=== PATIENT | male | born 1965 | race Caucasian/White ===

== ENCOUNTER 2016-09-09 22:43 | Emergency (ER) | payer OTHER ==
[~2016-09-09] VITALS: Ht 182.9 cm; Wt 109.8 kg
[~2016-09-09 22:43] MED LIST: ASPI81TA9 PO; ATEN25TA PO; ATOR10TA60 PO; DULO30CA2 PO; LOSA25TA4 PO; MELO-156 PO; NITR0.4T SL; ONDA4TAB10 PO; Oxycodone Hcl/Acetaminophen PO; PANT40TA3 PO; SERT100T PO; SIMV10TA3 PO; TIZA4TAB PO; prostate medication
[2016-09-09] MEDS ORDERED: ONDANSETRON PF 4 MG/2 ML VIAL. IV ONE (23:45)
[2016-09-09] MEDS ORDERED: CYCLOBENZAPRINE 10 MG TABLET. PO ONE (23:45)
[2016-09-09] MEDS ORDERED: KETOROLAC 15 MG/ML VIAL. IV ONE (23:45)
[2016-09-09] MEDS ORDERED: HYDROmorphone 2 MG/ML VIAL IV ONE (23:55)
--- NOTE | 2016-09-10 00:15 | RAD ---
PROCEDURE CT cervical spine without contrast. HISTORY Neck pain, no injury. TECHNIQUE Helical CT imaging of the cervical spine is performed without IV contrast. COMPARISON MR cervical spine without contrast, 06/01/2010. FINDINGS No acute fracture. The vertebral body height and alignment are maintained. The facet joints are intact. No significant disc space narrowing. There is minimal degenerative endplate spurring. No significant narrowing of the central canal is identified. No high-grade neural foraminal narrowing is identified. Lung apices minimally imaged but are clear. Visualized soft tissues of the neck unremarkable. IMPRESSION No acute fracture or subluxation of the cervical spine. Electronically signed by: Mariano Lou MD (September 10, 2016 00:14:13)
[2016-09-10] MEDS ORDERED: IBUP-1007 PO (01:56)
[2016-09-10] MEDS ORDERED: OXYC-323 PO (01:56)
[2016-09-10] MEDS ORDERED: CYCL10TA2 PO (01:56)
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
[2016-09-10 02:20] VITALS: BP 119/74
== END 2016-09-10 02:21 | disposition home or self-care (01) ==
LOC: ER 22:43
DX: M54.2 Cervicalgia (principal); E78.00 Pure hypercholesterolemia, unspecified; I10 Essential (primary) hypertension; I25.10 Atherosclerotic heart disease of native coronary artery without angina pectoris; Z88.0 Allergy status to penicillin
CPT/HCPCS: 72125; 96374; 96375; 99284; J1170; J1885; J2405; 99285-25

== ENCOUNTER → 2016-12-09 | Outpatient (CLI) | payer OTHER ==
[~2016-12-09] MED LIST changes: +ASPI-612 PO; -ASPI81TA9 PO; +CYCL10TA2 PO; +IBUP-1007 PO; -MELO-156 PO; +MELO7.5T29 PO; +OXYC-323 PO
--- NOTE | 2016-12-09 11:28 | KCIC ---
EXAM: Cervical spine MRI without contrast. HISTORY: Dizziness. Near-syncope. Pain. Upper extremity numbness. TECHNIQUE: Multiplanar, multisequence magnetic resonance imaging of the cervical spine was performed without contrast. COMPARISON: CT dated 09/09/2016 and cervical spine MRI dated 11/29/2010. FINDINGS: There is straightening of cervical lordosis. There is no significant listhesis. The vertebral bodies are normal in height and demonstrate normal marrow signal intensity. No spinal cord lesion is seen. The skull base and posterior fossa are unremarkable. At C2-C3, there is mild left facet arthropathy. There is no stenosis. At C3-C4, there is a minimal disc bulge. There is no stenosis. At C4-C5, there is a minimal disc bulge and endplate remodeling. There is minimal left foraminal stenosis. At C5-C6, there is a minimal disc bulge and endplate remodeling. There is no stenosis. At C6-C7, there is no stenosis. IMPRESSION: Minimal degenerative change within the cervical spine, similar compared to prior studies. Electronically signed by: Candida Vargas MD (12/09/2016 11:25 AM) [email or web address]
--- NOTE | 2016-12-09 11:51 | KCIC ---
EXAM: Brain MRI without contrast. HISTORY: Dizziness. Near-syncope. TECHNIQUE: Multiplanar, multisequence magnetic resonance imaging of the brain was performed without contrast. COMPARISON: CT angiogram dated 12/20/2010. FINDINGS: There is no restricted diffusion to suggest acute or subacute infarction. There is no susceptibility effect to suggest hemorrhage. There is no mass effect or midline shift. There is no hydrocephalus. No suspicious white matter lesion is seen. The orbits are unremarkable. There is some mild paranasal sinus because of thickening. The mastoid air cells are clear. There are normal flow voids within the cerebral vessels. IMPRESSION: No acute intracranial finding. Electronically signed by: Candida Vargas MD (12/09/2016 11:48 AM) [email or web address]
== END | disposition home or self-care (01) ==
LOC: KCIC MRI 10:28
PROVIDERS: ATTEND Physician Assistant Medical
DX: M54.12 Radiculopathy, cervical region (principal); M47.892 Other spondylosis, cervical region; R42 Dizziness and giddiness; R55 Syncope and collapse; R20.0 Anesthesia of skin
CPT/HCPCS: 70551; 72141

== ENCOUNTER → 2016-12-24 | Outpatient (CLI) | payer OTHER ==
[~2016-12-24] MED LIST changes: +BUPIVACAINE MPF 0.25% 10 ML VIAL. ONE; +DOCU-150 PO; +DOXA2TAB2 PO; +IOHEXOL 180 MG/ML 10 ML VIAL. ONE; +methylPREDNISolone ACETATE 80 MG/ML VIAL. ONE
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
== END | disposition home or self-care (01) ==
LOC: PNCL 07:36
PROVIDERS: ATTEND Anesthesiology
DX: M79.601 Pain in right arm (principal); M54.12 Radiculopathy, cervical region; M99.81 Other biomechanical lesions of cervical region; M62.838 Other muscle spasm; V29.9XXD Motorcycle rider (driver) (passenger) injured in unspecified traffic accident, subsequent encounter
CPT/HCPCS: 99214; J1040; J3490

== ENCOUNTER → 2017-01-09 | Outpatient (CLI) | payer OTHER ==
[~2017-01-09] MED LIST changes: -BUPIVACAINE MPF 0.25% 10 ML VIAL. ONE; +methylPREDNISolone ACETATE 40 MG/ML VIAL. ONE
--- NOTE | 2017-01-09 10:28 | PAIN ---
DATE OF SERVICE: 01/09/2017 DIAGNOSES: Cervical radiculopathy with cervical degenerative disk disease. HISTORY OF PRESENT ILLNESS: Mr. Taylor is a 51-year-old male who returns for followup, status post evaluation and preauthorization for cervical epidural steroid injection. The patient returns today with that authorization, wishing to proceed. The patient reports still pain in the base of the neck, shoulders, and more on the right than the left, with radiation into the right upper extremity. The patient reports also constant headaches every morning. Reports his pain is at 10 on a scale of 10 at its worst, 8 on an average, is 7 on a scale of 10 at its least, and it is a 7 today. The patient reports it is aching, dull, sharp, shooting pain, in the base of the neck and shoulders, as well as in the head, and headaches. Having difficulty sleeping. He cannot find a good position. He sleeps only about 4-6 hours if he can get into position. He has to reposition, get out of bed, but he is able to get back to sleep. The patient reports no new motor or sensory deficits or other complaints. PHYSICAL EXAMINATION: VITAL SIGNS: The patient's blood pressure is 134/95, pulse 83, respirations 20, temperature 98.2 degrees Fahrenheit, height 6 feet, weight is 234 pounds. GENERAL: The patient is awake, alert, oriented, appropriate, very pleasant demeanor. HEENT: Shows normocephalic, atraumatic. Extraocular movements are intact and symmetrical. Oral cavity shows mucous membranes moist and pink. Dentition is intact. NECK: Shows anterior throat is supple. Posterior cervical musculature shows symmetrical with the paraspinous musculature. With palpation shows some moderate tenderness, but only diffusely in the lower cervical distribution and the superior medial trapezius, somewhat more on the right than the left. CHEST: Shows normal with inspection. Breath sounds clear to auscultation bilaterally. HEART: Shows S1 and S2 clear. No murmurs auscultated. ABDOMEN: Soft, nontender, nondistended. No palpable organomegaly is noted. EXTREMITIES: Upper extremities show deep tendon reflexes 2+ in the biceps and triceps tendons. 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 Peripheral pulses are 2+ bilaterally. Options were discussed with the patient. The patient's old chart was reviewed, his current medication regimen updated, current review of systems updated today as well. We will proceed with a cervical epidural steroid injection using C-arm fluoroscopic guidance. Risks were again discussed, including but not limited to bleeding, infection, possibility of epidural hematoma and subsequent neurologic compromise, dural puncture, headaches, spinal cord and/or nerve damage, side effects of steroid medication and poor results regarding pain control. The patient understands and wishes to proceed. The patient will return to clinic in approximately 2 weeks for followup. Was counseled on return appointment and activity level and side effects to be aware of. DIAGNOSES: Cervical radiculopathy with cervical degenerative disk disease. PROCEDURE: Cervical epidural steroid injection, translaminar approach, C6-7 level using C-arm fluoroscopic guidance under sterile prep and drape using local anesthetic. MEDICATIONS INJECTED: Total 120 mg Depo-Medrol plus 5 mL preservative free normal saline and 2 mL of Isovue for contrast. CONDITION AT DISCHARGE: Stable. The patient tolerated procedure well, had no complications. WAYNE MARTIN MD DR: NI/rebecca JOB#: [id number] / [id number]
== END | disposition home or self-care (01) ==
LOC: PNCL 07:45
PROVIDERS: ATTEND Anesthesiology
DX: M50.123 Cervical disc disorder at C6-C7 level with radiculopathy (principal); E78.00 Pure hypercholesterolemia, unspecified; I10 Essential (primary) hypertension; I73.9 Peripheral vascular disease, unspecified; Z90.49 Acquired absence of other specified parts of digestive tract; Z87.01 Personal history of pneumonia (recurrent); Z87.39 Personal history of other diseases of the musculoskeletal system and connective tissue; Z88.0 Allergy status to penicillin; Z82.49 Family history of ischemic heart disease and other diseases of the circulatory system
CPT/HCPCS: 62321; J1030; J1040

== ENCOUNTER → 2017-01-21 | Outpatient (CLI) | payer OTHER ==
[~2017-01-21] MED LIST changes: -IOHEXOL 180 MG/ML 10 ML VIAL. ONE; -methylPREDNISolone ACETATE 40 MG/ML VIAL. ONE; -methylPREDNISolone ACETATE 80 MG/ML VIAL. ONE
--- NOTE | 2017-01-21 12:40 | PAIN ---
DATE OF SERVICE: 01/21/2017 DIAGNOSIS: Cervical radiculopathy with cervical degenerative disk disease. HISTORY OF PRESENT ILLNESS: The patient is a 51-year-old male who returns for followup status post cervical epidural steroid injection x 1 on 01/09/2017. The patient reports he did very well, about 80% improvement in his neck and upper extremities, right greater than left, still problematic, but doing much better. The patient reports he has been increasing his activity with greater ease and comfort, has had significant decrease in the pain until yesterday the pain began to return and came back fairly quickly in the base of the neck and shoulders as well as in the bilateral upper extremities with radiating shooting pain more in the right arm than the left, worse with activities, standing, walking, using his arms up over his head, repetitive motions with the upper extremities too. The patient reports it is still not near baseline, he rates it as 2 on a scale of 10 in all categories, but it is described as aching, dull, also sharp, shooting, alternating and stabbing pain in the upper extremities, again radiating to shoulders and the arms, into the forearms, and it is the hand worse on the right side than the left with some tingling sensations. The patient reports he has been sleeping better at night, however. It has been much more comfortable, has been very impressed with the amount of relief he has received. Again, the pain returning now as noted. The patient reports no new motor or sensory deficits, no new bowel or bladder incontinence, no other complaints. PHYSICAL EXAMINATION: VITAL SIGNS: Blood pressure 122/87, pulse 72, respirations 18, temperature 100.0. Height is 6 feet, weight is 235 pounds. GENERAL: The patient is awake, alert, oriented, appropriate, has very pleasant demeanor. HEENT: Normocephalic, atraumatic. Extraocular movements are intact, symmetrical. Oral cavity, mucous membranes are moist and pink. Dentition is intact. NECK: Supple without palpable lymphadenopathy noted. Swallow reflex is symmetrical. CHEST: Normal on inspection. Breath sounds are clear to auscultation bilaterally. HEART: Shows S1 and S2 clear. No murmurs auscultated. ABDOMEN: Soft, nontender, nondistended. BACK: Shows spine grossly in the midline. Cervical lordotic curvature is intact. Cervical paraspinous musculature is symmetrical on inspection with palpation, just with mild tenderness in the inferior aspect of the cervical paraspinous musculature as well as the superior medial trapezius and into the lateral trapezius, worse on the left than the right with palpitation, but symmetric without atrophy or hypertrophy, no trigger points, no radiation of pain. The patient has good rotation and motion of the cervical spine both laterally as well as extension and flexion with some minor pain with extension, but only in the base of the neck, more on the right side than the left, not with forward flexion. Right and left lateral rotation performed to greater than 45 degrees, close to 90 degrees. Right and left upper extremities show deep tendon reflexes 2+/4 in the biceps and triceps tendons. Motor examination is approximately 4 on a scale of 5 with right lead trainer strength and 5/5 on the left. Biceps and triceps flexion are 5/5 and equal bilaterally. Peripheral pulses are 2+ in radial distribution. No peripheral edema is noted. No clubbing, no cyanosis. Upper extremities are warm and dry to touch, equal in color and appearance. Shoulder shrug is strong and intact without loss of strength on resistance. Options were discussed with the patient and the patient's old chart was reviewed and his current medication list has been updated. Current review of systems updated today as well. We will preauthorize the patient for a second cervical epidural steroid injection as he did very well with the first one, with radicular pain now returning, again greater on the right than the left, but bilaterally and in the upper extremities. The patient will be given additional Medrol Dosepak with instructions on side effects to be aware of. In the meantime, we will wait for preauthorization and plan on second cervical epidural steroid injection once that is achieved. WAYNE MARTIN MD DR: NI/rebecca JOB#: [id number] / [id number]
== END | disposition home or self-care (01) ==
LOC: PNCL 08:41
PROVIDERS: ATTEND Anesthesiology
DX: M50.10 Cervical disc disorder with radiculopathy, unspecified cervical region (principal)
CPT/HCPCS: 99212

== ENCOUNTER → 2017-02-04 | Outpatient (CLI) | payer OTHER ==
[~2017-02-04] MED LIST changes: +IOHEXOL 180 MG/ML 10 ML VIAL. ONE; +methylPREDNISolone ACETATE 40 MG/ML VIAL. ONE; +methylPREDNISolone ACETATE 80 MG/ML VIAL. ONE
--- NOTE | 2017-02-04 09:39 | PAIN ---
DATE OF SERVICE: 02/04/2017 DIAGNOSES: Cervical radiculopathy with cervical degenerative disk disease. HISTORY OF PRESENT ILLNESS: The patient is a 51-year-old male who returns for followup status post cervical epidural steroid injection x 1 and returns after preauthorization for second injection. The patient did very well by 100% improvement for the first week and a half or so. The pain is returning in the base of the neck and into the bilateral shoulders, tingling and burning in both arms, rated 10 on a scale of 10 at its worse, 8 on an average and 7 at least. The patient reports aching, sharp, dull, shooting, constant, severe, stabbing. The patient reports he is doing very well, although the pain came back very abruptly after the injection about 12 or 13 days later. The patient reports no new motor or sensory deficits, no new changes. PHYSICAL EXAMINATION: VITAL SIGNS: Today, the patient's blood pressure is 129/87, pulse 88, respirations 16, temperature is 98.4 degrees Fahrenheit. Height is 6 feet 0 inches, weight is 236 pounds. GENERAL: The patient is awake, alert, oriented, appropriate, very pleasant demeanor. HEENT: Head shows normocephalic, atraumatic. Extraocular movements are intact and symmetrical. Oral cavity, mucous membranes are moist and pink. Dentition is intact. NECK: Shows anterior throat supple without palpable lymphadenopathy noted. Swallow reflex is symmetrical. CHEST: Shows normal on inspection. Breath sounds are clear to auscultation bilaterally. HEART: Shows S1 and S2 clear. ABDOMEN: Soft, nontender, nondistended. No palpable organomegaly. There is no rebound or guarding demonstrated. BACK: Shows spine grossly in the midline. Cervical lordotic curvature is slightly flattened with palpation, shows moderate tenderness in the inferior aspect of the cervical paraspinous musculature bilaterally without radiation into the superior medial and lateral trapezius as well. EXTREMITIES: Upper extremity showed deep tendon reflexes at 2+ in the biceps and triceps tendons. Motor exam is approximately 5/5 on the left and 4/5 on the right with territory sales executive strength. Peripheral pulses are 2+. No peripheral edema is noted. Options were discussed with the patient and the patient's old chart was reviewed as his current medication regimen updated. Current review of systems updated today as well. We will proceed with a second cervical epidural steroid injection today with fluoroscopic guidance. Risks were again discussed including, but not limited to bleeding, infection, possibility of epidural hematoma, subsequent neurologic compromise, dural puncture, headaches, spinal cord and/or nerve damage, side effects of steroid medication and poor results regarding pain control. The patient understands and wishes to proceed. The patient will return to clinic in approximately 2 weeks for followup. He was counseled on return appointment, activity level and side effects to be aware of. DIAGNOSIS: Cervical radiculopathy with cervical degenerative disk disease. PROCEDURE: Cervical epidural steroid injection in translaminar approach C6 level using fluoroscopic guidance, under sterile prep and drape using local anesthetic. MEDICATIONS INJECTED: Total 120 mg of Depo-Medrol, plus 5 mL preservative-free normal saline, 2 mL Isovue contrast. CONDITION ON DISCHARGE: Stable. The patient tolerated the procedure well, had no complications. WAYNE MARTIN MD DR: NI/rebecca JOB#: [id number] / [id number]
== END | disposition home or self-care (01) ==
LOC: PNCL 07:36
PROVIDERS: ATTEND Anesthesiology
DX: M50.123 Cervical disc disorder at C6-C7 level with radiculopathy (principal); E78.00 Pure hypercholesterolemia, unspecified; I10 Essential (primary) hypertension; Z90.49 Acquired absence of other specified parts of digestive tract; Z87.01 Personal history of pneumonia (recurrent); Z82.49 Family history of ischemic heart disease and other diseases of the circulatory system
CPT/HCPCS: 62321; J1030; J1040

== ENCOUNTER 2017-02-18 08:03 | Emergency (ER) | payer OTHER ==
[~2017-02-18] VITALS: Ht 182.9 cm; Wt 103.4 kg
[~2017-02-18 08:03] MED LIST changes: -IOHEXOL 180 MG/ML 10 ML VIAL. ONE; -methylPREDNISolone ACETATE 40 MG/ML VIAL. ONE; -methylPREDNISolone ACETATE 80 MG/ML VIAL. ONE
[2017-02-18] MEDS ORDERED: ONDANSETRON PF 4 MG/2 ML VIAL. IV ONE (08:45)
[2017-02-18] MEDS ORDERED: IV NORMAL SALINE 1000ML BAG 1,000 ML IV ONE (08:45)
[2017-02-18] MEDS ORDERED: HYDROmorphone 2 MG/ML VIAL IV ONE ×2 (08:45→09:45)
--- NOTE | 2017-02-18 08:56 | PHYS DOC ---
Past Medical History Past Medical History: CAD, Hypertension, Other Additional Past Medical Histor: high cholesterol, "liver mass", "stress" Past Surgical History: Other Additional Past Surgical Histo: hernia,r ankle,carple tunnel bilat, VARICOSE VEINS STRIPPING Alcohol Use: Occasionally Drug Use: None Adult General Chief Complaint Chief Complaint: ABDOMINAL PAIN HPI HPI Patient is a 51 year old male with history of CAD, hypertension, who presents today with moderate chronic left lower quadrant abdominal pain radiating into his left lower extremity, left lower back, and sometimes to the right abdomen. Patient states this pain has been going on since August 2016 when he had his inguinal hernia repair with a mesh. Patient denies any nausea vomiting. He states he has chronic diarrhea after gallbladder removal years ago. Patient denies any fever. He states he has followed up with his general surgeon that did his hernia repair multiple times and they did an ultrasound which was negative and the general surgeon recommended f/u with pain clinic. Patient states his pain got worse this morning when having a bowel movement. He also states he has seen his PCP for this pain who is trying him on other medications that are not narcotics. PCP Dr. Troncoso Review of Systems Review of Systems Constitutional: Denies fever or chills [] Eyes: Denies change in visual acuity, redness, or eye pain [] HENT: Denies nasal congestion or sore throat [] Respiratory: Denies cough or shortness of breath [] Cardiovascular: No additional information not addressed in HPI [] GI: Left lower quadrant abdominal pain radiating to the right lower quadrant, denies nausea, vomiting, bloody stools or diarrhea [] : Denies dysuria or hematuria [] Musculoskeletal: Denies back pain or joint pain [] Integument: Denies rash or skin lesions [] Neurologic: Denies headache, focal weakness or sensory changes [] Current Medications Current Medications Current Medications Medications (Trade) Dose Ordered Sig/Kaylee Start Time Stop Time Status Last Admin Dose Admin Hydromorphone HCl (Dilaudid) 1 mg 1X ONCE 02/18/17 09:45 02/18/17 09:46 DC 02/18/17 09:41 1 MG Info (Do NOT chart on this entry -- for MONITORING) 1 each PRN DAILY PRN 02/18/17 09:30 02/20/17 09:29 Iohexol (Omnipaque 300 Mg/ml) 75 ml 1X ONCE 02/18/17 09:30 02/18/17 09:31 DC 02/18/17 09:20 75 ML Ondansetron HCl (Zofran) 4 mg 1X ONCE 02/18/17 08:45 02/18/17 08:46 DC 02/18/17 08:58 4 MG Sodium Chloride 1,000 ml @ 1,000 mls/hr 1X ONCE 02/18/17 08:45 02/18/17 09:44 DC 02/18/17 08:58 1,000 MLS/HR Allergies Allergies Allergies Coded Allergies Type Severity Reaction Last Updated Verified Penicillins Allergy Intermediate lip swelling,rash 04/10/16 Yes Physical Exam Physical Exam Constitutional: Well developed, well nourished, no acute distress, non-toxic appearance. [] HENT: Normocephalic, atraumatic, bilateral external ears normal, oropharynx moist, no oral exudates, nose normal. [] Eyes: PERRLA, EOMI, conjunctiva normal, no discharge. [] Neck: Normal range of motion, no tenderness, supple, no stridor. [] Cardiovascular:Heart rate regular rhythm, no murmur [] Lungs & Thorax: Bilateral breath sounds clear to auscultation [] Abdomen: Old healed surgical incision noted on the left inguinal area as well as umbilicus. Bowel sounds normal, soft, moderate tenderness on palpation of the left lower quadrant, no right lower quadrant tenderness, no masses, no pulsatile masses. [] Skin: Warm, dry, no erythema, no rash. [] Back: No tenderness, no CVA tenderness. [] Extremities: No tenderness, no cyanosis, no clubbing, ROM intact, no edema. [] Neurologic: Alert and oriented X 3, normal motor function, normal sensory function, no focal deficits noted. [] Psychologic: Affect normal, judgement normal, mood normal. [] Current Patient Data Vital Signs Vital Signs Date Time Temp Pulse Resp B/P (MAP) Pulse Ox O2 Delivery O2 Flow Rate FiO2 02/18/17 09:41 18 98 Room Air 02/18/17 09:05 77 118/80 (93) 02/18/17 08:25 98.7 98.7 Lab Values Laboratory Tests Test 02/18/17 08:35 White Blood Count 13.6 x10^3/uL (4.0-11.0) H Red Blood Count 5.22 x10^6/uL (4.30-5.70) Hemoglobin 16.1 g/dL (13.0-17.5) Hematocrit 47.5 % (39.0-53.0) Mean Corpuscular Volume 91 fL (79-100) Mean Corpuscular Hemoglobin 31 pg (25-35) Mean Corpuscular Hemoglobin Concent 34 g/dL (31-37) Red Cell Distribution Width 13.4 % (11.5-14.5) Platelet Count 250 x10^3/uL (140-400) Neutrophils (%) (Auto) 80 % (31-73) H Lymphocytes (%) (Auto) 14 % (24-48) L Monocytes (%) (Auto) 5 % (0-9) Eosinophils (%) (Auto) 1 % (0-3) Basophils (%) (Auto) 1 % (0-3) Neutrophils # (Auto) 10.9 x10^3uL (1.8-7.7) H Lymphocytes # (Auto) 1.9 x10^3/uL (1.0-4.8) Monocytes # (Auto) 0.6 x10^3/uL (0.0-1.1) Eosinophils # (Auto) 0.1 x10^3/uL (0.0-0.7) Basophils # (Auto) 0.1 x10^3/uL (0.0-0.2) Sodium Level 138 mmol/L (136-145) Potassium Level 3.9 mmol/L (3.5-5.1) Chloride Level 102 mmol/L (98-107) Carbon Dioxide Level 28 mmol/L (21-32) Anion Gap 8 (6-14) Blood Urea Nitrogen 16 mg/dL (8-26) Creatinine 0.8 mg/dL (0.7-1.3) Estimated GFR (Cockcroft-Gault) 102.7 BUN/Creatinine Ratio 20 (6-20) Glucose Level 106 mg/dL (70-99) H Calcium Level 8.9 mg/dL (8.5-10.1) Total Bilirubin 0.6 mg/dL (0.2-1.0) Aspartate Amino Transferase (AST) 20 U/L (15-37) Alanine Aminotransferase (ALT) 43 U/L (16-63) Alkaline Phosphatase 129 U/L (46-116) H Total Protein 7.7 g/dL (6.4-8.2) Albumin 3.5 g/dL (3.4-5.0) Albumin/Globulin Ratio 0.8 (1.0-1.7) L Lipase 245 U/L (73-393) Laboratory Tests 02/18/17 08:35 Laboratory Tests 02/18/17 08:35 EKG EKG [] Radiology/Procedures Radiology/Procedures []PROCEDURE: CT ABD PELV W/ IV CONTRST ONLY Indication left lower quadrant pain. Axial images through the abdomen and pelvis were obtained. Approximately 75 cc of Omnipaque 300 was administered intravenously. No oral contrast was administered. Note is made of a previous examination 08/15/2014. The lung bases are clear. There is an unchanged low-density mass in the right lobe liver which is probably incidental. A definite significant finding in the liver is not seen. The spleen is at the upper limits of normal in size. Clips are seen in the gallbladder fossa. The pancreas appears unremarkable. There are no adrenal or renal masses. Acute finding in the abdomen is not seen. In the pelvis no focal mass or inflammatory process is seen. An acute finding is not seen. Pressure: No acute finding seen in the abdomen or pelvis DICTATED and SIGNED BY: ALBERT COFFEY MD DATE: 02/18/17 0933 CC: CARMEN THORNTON APRN; ANDREI VILLANUEVA PA-C ~ Course & Med Decision Making Course & Med Decision Making Pertinent Labs and Imaging studies reviewed. (See chart for details) This is a 51-year-old male patient presented to the ED today with left lower quadrant abdominal pain that has been going on since August 2016 after having inguinal hernia repair. Please see history of present illness. He has already followed up with the general surgeon who recommended a pain clinic. CBC CMP lipase with no acute findings. CT of the abdomen and pelvic was negative for any acute findings. Patient has been asking for Dilaudid very frequently in the ED. Informed patient his labs and CT were negative. Informed him he needs to follow-up with his own general surgeon. He states he does not want to see his general surgeon anymore. He states he'll follow up with Dr. Rubin. He was discharged in stable condition. Dragon Disclaimer Dragon Disclaimer This electronic medical record was generated, in whole or in part, using a voice recognition dictation system. Departure Departure Impression: Primary Impression: Abdominal pain Disposition: HOME, SELF-CARE Referrals: ANDREI VILLANUEVA PA-C (PCP) VIKTOR RUBIN MD follow up in one week Patient Instructions: Abdominal Pain Additional Instructions: You were seen for chronic left low quadrant abdominal pain. We recommend you follow-up with a general surgeon. You stated you will follow up with Dr. Rubin. Call his office today and set up a follow-up. You can also follow-up with your primary care doctor. 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
[2017-02-18 08:57] LABS: CALCIUM 8.9 mg/dL (8.5-10.1); CREATININE 0.8 mg/dL (0.7-1.3); GFR 102.7; POTASSIUM 3.9 mmol/L (3.5-5.1)
[2017-02-18 09:03] LABS: ALBUMIN 3.5 g/dL (3.4-5.0); ALBUMIN/GLOBULIN RATIO 0.8 (1.0-1.7); TOTAL BILIRUBIN 0.6 mg/dL (0.2-1.0); TOTAL PROTEIN 7.7 g/dL (6.4-8.2)
[2017-02-18 09:05] LABS: BASO # 0.1 x10^3/uL (0.0-0.2); BASO % 1 % (0-3); EOS % 1 % (0-3); HEMATOCRIT 47.5 % (39.0-53.0); HEMOGLOBIN 16.1 g/dL (13.0-17.5); LYMPH # 1.9 x10^3/uL (1.0-4.8); LYMPH % 14 % (24-48); MEAN CORPUSCULAR HEMOGLOBIN 31 pg (25-35); MEAN CORPUSCULAR HGB CONC 34 g/dL (31-37); MEAN CORPUSCULAR VOLUME 91 fL (79-100); MONO % 5 % (0-9); NEUT % 80 % (31-73); PLATELET COUNT 250 x10^3/uL (140-400); RED BLOOD COUNT 5.22 x10^6/uL (4.30-5.70); RED CELL DISTRIBUTION WIDTH 13.4 % (11.5-14.5); WHITE BLOOD COUNT 13.6 x10^3/uL (4.0-11.0)
[2017-02-18] MEDS ORDERED: CONTRAST GIVEN MC PRN (09:30)
[2017-02-18] MEDS ORDERED: IOHEXOL 300 MG/ML 75 ML VIAL IV ONE (09:30)
--- NOTE | 2017-02-18 09:51 | RAD ---
Indication left lower quadrant pain. Axial images through the abdomen and pelvis were obtained. Approximately 75 cc of Omnipaque 300 was administered intravenously. No oral contrast was administered. Note is made of a previous examination 08/15/2014. The lung bases are clear. There is an unchanged low-density mass in the right lobe liver which is probably incidental. A definite significant finding in the liver is not seen. The spleen is at the upper limits of normal in size. Clips are seen in the gallbladder fossa. The pancreas appears unremarkable. There are no adrenal or renal masses. Acute finding in the abdomen is not seen. In the pelvis no focal mass or inflammatory process is seen. An acute finding is not seen. Pressure: No acute finding seen in the abdomen or pelvis
[2017-02-18 10:35] VITALS: BP 115/69
== END 2017-02-18 11:05 | disposition home or self-care (01) ==
LOC: ER 08:03
DX: R10.32 Left lower quadrant pain (principal); M54.5 Low back pain; M79.605 Pain in left leg; I10 Essential (primary) hypertension; E78.00 Pure hypercholesterolemia, unspecified; I25.10 Atherosclerotic heart disease of native coronary artery without angina pectoris; Z88.0 Allergy status to penicillin
CPT/HCPCS: 36415; 74177; 80053; 83690; 85025; 96361; 96374; 96375; 96376; 99285; J1170; J2405; J7030; Q9967

== ENCOUNTER → 2017-03-03 | Day surgery (SDC) | payer OTHER ==
[~2017-03-03] MED LIST changes: +DICY20TA3 PO; +IV RINGERS,LACTATED 1000ML 1,000 ML IV SCH; +LIDOCAINE 2% PF Vial for OR 5 ML VIAL. ONE; +LOSA1TAB19 PO; +PANT40TA5 PO; +PROPOFOL 20 ML IV ONE; +PROPOFOL 60 ML IV ONE; +SUCR1TAB35 PO
[2017-03-03 16:01] VITALS: BP 107/80
--- NOTE | 2017-03-05 13:28 | PATHOLOGY ---
PATHOLOGY REPORT * * * * * * * * FINAL DIAGNOSIS: A. Esophageal biopsy, distal esophagus: - Segments of hyperplastic squamous esophageal mucosa and esophagogastric mucosa showing chronic inflammation, consistent with reflux esophagitis. B. Colon biopsy, sigmoid polyp: - Inflamed hyperplastic polyp showing focal active chronic inflammation. C. Colon biopsy, cecal polyp: - Tubular adenoma. COMMENT: Sections of the distal esophageal biopsy reveal segments of hyperplastic squamous esophageal mucosa and esophagogastric mucosa showing chronic inflammation. The findings are consistent with reflux esophagitis. There is no evidence of Suarez's change, dysplasia, or malignancy. Sections of the sigmoid colon biopsy reveal an inflamed hyperplastic polyp showing focal active chronic inflammation. There are no adenomatous changes or evidence of malignancy. Sections of the cecal biopsy reveal a diminutive tubular adenoma showing no high grade dysplasia or evidence of malignancy. (JPM:mml; 03/05/2017) REPORT ELECTRONICALLY SIGNED BY: Cisco Najera M.D. DATE/TIME: 03/05/2017 13:27 * * * * * * * * GROSS PATHOLOGY: A. Received in formalin labeled "Myron Taylor, distal esophagus BX's," are 3 segments of dumont soft tissue measuring 1.2 x 0.3 x 0.3 cm in aggregate dimensions and ranging from 0.4 to 0.6 cm in maximum dimension. The specimen is submitted entirely in cassette A1. B. Received in formalin labeled "Myron Taylor, sigmoid polyp," is a segment of dumont soft tissue measuring 0.4 cm in maximum dimension. The specimen is submitted entirely in cassette B1. C. Received in formalin labeled "Myron Taylor, cecal polyp," is a segment of dumont soft tissue measuring 0.3 cm in maximum dimension. The specimen is submitted entirely in cassette C1. (TSD; 03/04/2017) INITIAL CPT CODE(S): A; 54914 B; 23270 C; 52672 Professional services performed by [facility] at [facility] [address] [place] [id number] Technical services performed by [facility] at [address] [place] [address], [address], [place] [address]. SPECIMEN(S) RECEIVED: A.Distal esophagus biopsy B.Sigmoid polyp C.Cecal polyp CLINICAL HISTORY: Reflux, dysphagia, rectal bleeding PATIENT: MYRON TAYLOR /AGE: 6 1965 (Age: 51) PATIENT #: [id number] ALT CASE #: SPECIMEN COLLECTION DATE: 03/03/2017 SPECIMEN RECEIVED DATE: 03/04/2017 [facility] - [id number] [place] [address] - PHONE: [phone] * * * END OF REPORT * * *
== END | disposition home or self-care (01) ==
LOC: ENDOS 14:29
PROVIDERS: ATTEND Internal Medicine Gastroenterology
DX: D12.0 Benign neoplasm of cecum (principal); D12.5 Benign neoplasm of sigmoid colon; K29.50 Unspecified chronic gastritis without bleeding; K64.0 First degree hemorrhoids; K92.1 Melena; K21.0 Gastro-esophageal reflux disease with esophagitis; Z88.0 Allergy status to penicillin; I25.10 Atherosclerotic heart disease of native coronary artery without angina pectoris; I10 Essential (primary) hypertension; E78.00 Pure hypercholesterolemia, unspecified; I73.9 Peripheral vascular disease, unspecified; Z82.49 Family history of ischemic heart disease and other diseases of the circulatory system; Z87.01 Personal history of pneumonia (recurrent); Z90.49 Acquired absence of other specified parts of digestive tract; Z87.39 Personal history of other diseases of the musculoskeletal system and connective tissue
CPT/HCPCS: 43239; 45380; 88305; J2704; J2001

== ENCOUNTER 2017-03-16 09:08 | Emergency (ER) | payer OTHER ==
[~2017-03-16 09:08] MED LIST changes: -IV RINGERS,LACTATED 1000ML 1,000 ML IV SCH; -LIDOCAINE 2% PF Vial for OR 5 ML VIAL. ONE; -PROPOFOL 20 ML IV ONE; -PROPOFOL 60 ML IV ONE
[2017-03-16] MEDS: MORPHINE SULFATE 4 MG/ML DISP.SYRIN. IV ONE ×2 (09:30→09:43)
[2017-03-16] MEDS ORDERED: ONDANSETRON PF 4 MG/2 ML VIAL. IV ONE (09:30)
[2017-03-16 09:38] LABS: HEMATOCRIT 42.4 % (39.0-53.0); HEMOGLOBIN 14.5 g/dL (13.0-17.5); RED BLOOD COUNT 4.66 x10^6/uL (4.30-5.70); RED CELL DISTRIBUTION WIDTH 13.2 % (11.5-14.5); WHITE BLOOD COUNT 9.8 x10^3/uL (4.0-11.0)
[2017-03-16 09:45] LABS: CREATININE 0.9 mg/dL (0.7-1.3); GFR 89.7; POTASSIUM 3.8 mmol/L (3.5-5.1)
[2017-03-16 09:51] LABS: ALBUMIN 3.2 g/dL (3.4-5.0); ALBUMIN/GLOBULIN RATIO 0.8 (1.0-1.7); TOTAL BILIRUBIN 0.4 mg/dL (0.2-1.0); TOTAL PROTEIN 7.3 g/dL (6.4-8.2)
[2017-03-16] MEDS ORDERED: CONTRAST GIVEN MC PRN (10:00)
[2017-03-16] MEDS ORDERED: IOHEXOL 300 MG/ML 100ML VIAL. IV ONE (10:00)
--- NOTE | 2017-03-16 10:26 | PHYS DOC ---
Past Medical History Past Medical History: Hypertension Additional Past Medical Histor: high cholesterol, "liver mass", "stress" Past Surgical History: Other Additional Past Surgical Histo: recent colonoscopy, EGD Alcohol Use: Occasionally Drug Use: None Adult General Chief Complaint Chief Complaint: ABDOMINAL PAIN HPI HPI Patient is a 51 year old male with a history of chronic back and abdominal pain presents to the ED complaining of abdominal pain x 3 weeks. Seen on February 18 for similar symptoms. Describes pain as sharp. Rates pain as 9 out of 10. States he has a history of inguinal hernia repair in August 2016 with mesh placement. States he has been having pain ever since. States his general surgeon referred him to the pain clinic. Requested new general surgeon on last visit and given Dr. Luna. Patient states he has not followed up yet. Patient had a colonoscopy and EGD done on March [address] Harris. No acute findings at this time. States he is following up with Dr. Harris this coming Thursday. Denies nausea/vomiting, fever, chest pain, shortness of breath, dysuria, hematuria, weakness or dizziness. Review of Systems Review of Systems Constitutional: Denies fever or chills [] Eyes: Denies change in visual acuity, redness, or eye pain [] HENT: Denies nasal congestion or sore throat [] Respiratory: Denies cough or shortness of breath [] Cardiovascular: No additional information not addressed in HPI [] GI: Complains of abdominal pain. Denies nausea, vomiting, bloody stools or diarrhea [] : Denies dysuria or hematuria [] Musculoskeletal: Complains of back pain. Denies joint pain. [] Integument: Denies rash or skin lesions [] Neurologic: Denies headache, focal weakness or sensory changes [] Endocrine: Denies polyuria or polydipsia [] All other systems were reviewed and found to be within normal limits, except as documented in this note. Current Medications Current Medications Current Medications Medications (Trade) Dose Ordered Sig/Kaylee Start Time Stop Time Status Last Admin Dose Admin Famotidine (Pepcid Vial) 20 mg 1X ONCE 03/16/17 10:30 03/16/17 10:31 DC 03/16/17 10:35 20 MG Info (Do NOT chart on this entry -- for MONITORING) 1 each PRN DAILY PRN 03/16/17 10:00 03/16/17 12:44 DC Iohexol (Omnipaque 300 Mg/ml) 100 ml 1X ONCE 03/16/17 10:00 03/16/17 10:01 DC 03/16/17 10:00 75 ML Morphine Sulfate 4 mg 1X ONCE 03/16/17 10:30 03/16/17 10:31 DC 03/16/17 10:35 4 MG Ondansetron HCl (Zofran) 4 mg 1X ONCE 03/16/17 09:30 03/16/17 09:31 DC 03/16/17 09:42 4 MG Allergies Allergies Allergies Coded Allergies Type Severity Reaction Last Updated Verified Penicillins Allergy Severe lip swelling,rash 03/03/17 Yes Physical Exam Physical Exam Constitutional: Well developed, well nourished, no acute distress, non-toxic appearance. [] HENT: Normocephalic, atraumatic, bilateral external ears normal, oropharynx moist, no oral exudates, nose normal. [] Eyes: PERRLA, EOMI, conjunctiva normal, no discharge. [] Neck: Normal range of motion, no tenderness, supple, no stridor. [] Cardiovascular:Heart rate regular rhythm, no murmur [] Lungs & Thorax: Bilateral breath sounds clear to auscultation [] Abdomen: Bowel sounds normal, soft, MILD DIFFUSE LOWER ABDOMINAL TENDERNESS., no masses, no pulsatile masses. [] Skin: Warm, dry, no erythema, no rash. [] Back: No tenderness, no CVA tenderness. [] Extremities: No tenderness, no cyanosis, no clubbing, ROM intact, no edema. [] Neurologic: Alert and oriented X 3, normal motor function, normal sensory function, no focal deficits noted. [] Psychologic: Affect normal, judgement normal, mood normal. [] Current Patient Data Vital Signs Vital Signs Date Time Temp Pulse Resp B/P (MAP) Pulse Ox O2 Delivery O2 Flow Rate FiO2 03/16/17 12:41 62 18 116/80 (92) 97 03/16/17 11:52 Room Air 03/16/17 09:11 98.3 98.3 Lab Values Laboratory Tests Test 03/16/17 09:25 03/16/17 10:17 03/16/17 12:07 White Blood Count 9.8 x10^3/uL (4.0-11.0) Red Blood Count 4.66 x10^6/uL (4.30-5.70) Hemoglobin 14.5 g/dL (13.0-17.5) Hematocrit 42.4 % (39.0-53.0) Mean Corpuscular Volume 91 fL (79-100) Mean Corpuscular Hemoglobin 31 pg (25-35) Mean Corpuscular Hemoglobin Concent 34 g/dL (31-37) Red Cell Distribution Width 13.2 % (11.5-14.5) Platelet Count 254 x10^3/uL (140-400) Sodium Level 141 mmol/L (136-145) Potassium Level 3.8 mmol/L (3.5-5.1) Chloride Level 103 mmol/L (98-107) Carbon Dioxide Level 29 mmol/L (21-32) Anion Gap 9 (6-14) Blood Urea Nitrogen 16 mg/dL (8-26) Creatinine 0.9 mg/dL (0.7-1.3) Estimated GFR (Cockcroft-Gault) 89.7 BUN/Creatinine Ratio 18 (6-20) Glucose Level 108 mg/dL (70-99) H Calcium Level 9.0 mg/dL (8.5-10.1) Total Bilirubin 0.4 mg/dL (0.2-1.0) Aspartate Amino Transferase (AST) 27 U/L (15-37) Alanine Aminotransferase (ALT) 46 U/L (16-63) Alkaline Phosphatase 125 U/L (46-116) H Total Protein 7.3 g/dL (6.4-8.2) Albumin 3.2 g/dL (3.4-5.0) L Albumin/Globulin Ratio 0.8 (1.0-1.7) L Lipase 197 U/L (73-393) Stool Occult Blood Negative (NEG) Urine Collection Type Unknown Urine Color Yellow Urine Clarity Clear Urine pH 6.5 Urine Specific [place] >=1.030 Urine Protein Negative mg/dL (NEG-TRACE) Urine Glucose (UA) Negative mg/dL (NEG) Urine Ketones (Stick) Negative mg/dL (NEG) Urine Blood Negative (NEG) Urine Nitrite Negative (NEG) Urine Bilirubin Negative (NEG) Urine Urobilinogen Dipstick 1.0 mg/dL (0.2 mg/dL) Urine Leukocyte Esterase Negative (NEG) Urine RBC 0 /HPF (0-2) Urine WBC 0 /HPF (0-4) Urine Squamous Epithelial Cells Occ /LPF Urine Bacteria 0 /HPF (0-FEW) Urine Mucus Slight /LPF Laboratory Tests 03/16/17 09:25 Laboratory Tests 03/16/17 09:25 EKG EKG [] Radiology/Procedures Radiology/Procedures PROCEDURE: LUMBAR SPINE 2-3V Lumbar spine, 3 views, 03/16/2017: History: Back pain There is a transitional-type vertebra at the lumbosacral junction. No fracture is identified. There is only minimal marginal spurring. The intervertebral disc spaces are well-maintained. The paraspinous soft tissues are unremarkable. IMPRESSION: No acute lumbar spine abnormality is detected. []PROCEDURE: CT ABD PELV W/ IV CONTRST ONLY CT of the abdomen and pelvis with contrast, 03/16/2017: History: Right-sided pain Multidetector CT imaging was performed following an IV bolus injection of iodinated contrast material. No oral contrast material was administered for this exam. Comparison is made to a study from 02/18/2017. The gallbladder is surgically absent. There is an oval-shaped subcapsular lucency in the posterior aspect of the right lobe of the liver measuring just less than 2 cm in greatest diameter. It is unchanged since 02/18/2017. It was also evident on an older exam from 10/14/2011 and has shown no definite change in size. This suggests a benign etiology. No new hepatic abnormality is seen. The pancreas is unremarkable. The spleen is within normal limits in size. No renal or adrenal abnormality is detected. The abdominal aorta is of normal caliber. No abdominal or pelvic adenopathy is seen. Streaky opacities of the left groin level as well as a tiny fluid collection are unchanged and are presumably postsurgical. The bowel loops are not dilated. The appendix shows no abnormality. No free air or free fluid is evident in the abdomen or pelvis. IMPRESSION: No acute abdominal or pelvic abnormality is detected. Course & Med Decision Making Course & Med Decision Making Pertinent Labs and Imaging studies reviewed. (See chart for details) []Discussed case with patient's PCP, Dr. Troncoso (seen in office by his PA-Homero) . Agrees with evaluation and plan. Recommends patient can be discharged and follow-up in the office in 1-2 days. States he wants the patient to keep his appointment with Dr. Harris, GI, later this week. Patient well-appearing on reexamination. Discussed labs and imaging with patient. Vital stable, no acute distress. On re-examination, abdomen is soft nontender nondistended. No peritoneal signs. Tolerating by mouth. Patient states he feels better and is comfortable with follow-up plan. Discussed importance of follow-up and reasons to return to the ED. Patient understands and agrees with plan. Dragon Disclaimer Dragon Disclaimer This electronic medical record was generated, in whole or in part, using a voice recognition dictation system. Departure Departure Impression: Primary Impression: Abdominal pain Disposition: HOME, SELF-CARE Condition: STABLE Referrals: ANDREI VILLANUEVA PA-C (PCP) VIKTOR HARRIS MD Patient Instructions: Abdominal Pain GONZALEZ BAE Mar 16, 2017 10:26
[2017-03-16] MEDS ORDERED: FAMOTIDINE 20 MG/2 ML VIAL IVP ONE (10:30)
[2017-03-16] MEDS ORDERED: MORPHINE SULFATE 4 MG/ML DISP.SYRIN. IV ONE (10:30)
--- NOTE | 2017-03-16 10:38 | RAD ---
CT of the abdomen and pelvis with contrast, 03/16/2017: History: Right-sided pain Multidetector CT imaging was performed following an IV bolus injection of iodinated contrast material. No oral contrast material was administered for this exam. Comparison is made to a study from 02/18/2017. The gallbladder is surgically absent. There is an oval-shaped subcapsular lucency in the posterior aspect of the right lobe of the liver measuring just less than 2 cm in greatest diameter. It is unchanged since 02/18/2017. It was also evident on an older exam from 10/14/2011 and has shown no definite change in size. This suggests a benign etiology. No new hepatic abnormality is seen. The pancreas is unremarkable. The spleen is within normal limits in size. No renal or adrenal abnormality is detected. The abdominal aorta is of normal caliber. No abdominal or pelvic adenopathy is seen. Streaky opacities of the left groin level as well as a tiny fluid collection are unchanged and are presumably postsurgical. The bowel loops are not dilated. The appendix shows no abnormality. No free air or free fluid is evident in the abdomen or pelvis. IMPRESSION: No acute abdominal or pelvic abnormality is detected. PQRS Compliance Statement: One or more of the following individualized dose reduction techniques were utilized for this examination: 1. Automated exposure control 2. Adjustment of the mA and/or kV according to patient size 3. Use of iterative reconstruction technique
--- NOTE | 2017-03-16 10:39 | RAD ---
Lumbar spine, 3 views, 03/16/2017: History: Back pain There is a transitional-type vertebra at the lumbosacral junction. No fracture is identified. There is only minimal marginal spurring. The intervertebral disc spaces are well-maintained. The paraspinous soft tissues are unremarkable. IMPRESSION: No acute lumbar spine abnormality is detected.
[2017-03-16 11:03] LABS: NEG OBC FOB NEG; POS OBC FOB POS
[2017-03-16 12:16] LABS: BILIRUBIN,URINE NEGATIVE (NEG); GLUCOSE,URINE NEGATIVE (NEG); NITRITE,URINE NEGATIVE (NEG); PH,URINE 6.5; PROTEIN,URINE NEGATIVE (NEG-TRACE)
[2017-03-16 12:40] LABS: BACTERIA,URINE 0 /HPF (0-FEW); RBC,URINE 0 /HPF (0-2); SQUAMOUS EPITHELIAL CELL,UR OCC /LPF; WBC,URINE 0 /HPF (0-4)
[2017-03-16 12:41] VITALS: BP 116/80
[2017-03-20] MEDS ORDERED: HYDR-2762 PO (10:26)
[2017-03-20] MEDS ORDERED: OXYC-323 PO (10:26)
[2017-04-01] MEDS ORDERED: AMIT25TA PO (11:54)
[2017-04-08] MEDS ORDERED: LOSA1TAB25 PO (12:30)
[2017-04-08] MEDS ORDERED: COLE1TAB2 PO (12:30)
[2017-04-08] MEDS ORDERED: DICY20TA3 PO (12:30)
[2017-04-08] MEDS ORDERED: DOXA2TAB2 PO (12:30)
[2017-04-08] MEDS ORDERED: LOSA50TA6 PO (12:33)
[2017-04-08] MEDS ORDERED: ESOM40CA PO (12:59)
== END 2017-03-16 12:43 | disposition home or self-care (01) ==
LOC: ER 09:08
DX: R10.84 Generalized abdominal pain (principal); G89.29 Other chronic pain; M54.89 Other dorsalgia; I10 Essential (primary) hypertension; E78.00 Pure hypercholesterolemia, unspecified; Z88.0 Allergy status to penicillin
CPT/HCPCS: 36415; 72100; 74177; 80053; 81001; 82274; 83690; 85027; 96374; 96375; 96376; 99285; J2270; J2405; Q9967; S0028

== ENCOUNTER → 2017-03-20 | Outpatient (CLI) | payer OTHER ==
[2017-03-16 12:41] VITALS: BP 116/80
[~2017-03-20] MED LIST changes: +HYDR-2762 PO
--- NOTE | 2017-03-20 18:44 | PAIN ---
DATE OF SERVICE: 03/20/2017 DIAGNOSES: 1. Cervical radiculopathy with cervical degenerative disk disease. 2. Left post inguinal herniorrhaphy pain. HISTORY OF PRESENT ILLNESS: The patient is a 51-year-old male who returns for followup status post cervical epidural steroid injections, last on 02/04/2017. The patient did very well with a 100% improvement in the neck, bilateral upper extremity pain. The patient reports the pain is returning now, but only gradually, still about 75% improvement, but is increasing daily in the base of the neck and bilateral shoulders, radiating to the upper extremities bilaterally, mostly in the posterior aspect of the deltoid and the posterior triceps; slightly worse on the right than the left, but present bilaterally. The patient reports it is a 10 on a scale of 10 at its worst, 8 on average and is 4 on a scale of 10 at its least. The patient reports it is a 4 this morning as well. The patient reports an aching, sharp, shooting, burning, becoming more intense. The patient also has a secondary pain of left inguinal region status post inguinal herniorrhaphy in 06/2016 with increasing pain over the last several weeks as well. The patient reports no radiation of pain significantly, but some into the medial left thigh, worse with activity, standing, walking, changing positions, especially sitting to standing. It has been awakening him from sleep occasionally, but not every night, just from the left groin. His neck has not awakened him from sleep. The patient reports no new motor or sensory deficits, no new bowel or bladder incontinence or other complaints. PHYSICAL EXAMINATION: VITAL SIGNS: The patient's blood pressure is 89/51, rechecked 89/59; pulse is 76; respirations 20; temperature is 97.6 degrees Fahrenheit. Height is 6 feet 0 inches, weight is 237 pounds. GENERAL: The patient is awake, alert, oriented, appropriate, very pleasant demeanor. HEENT: Shows normocephalic, atraumatic. The patient wears eyeglasses. Extraocular movements are intact, symmetrical. Oral cavity shows mucous membranes are moist and pink. Dentition is intact. NECK: Shows anterior throat supple without palpable lymphadenopathy noted. Swallow reflex is symmetrical. CHEST: Shows normal on inspection. Breath sounds clear to auscultation bilaterally. HEART: Shows S1 and S2 clear. No murmurs auscultated. ABDOMEN: Soft, nontender, nondistended. No palpable organomegaly is noted. MUSCULOSKELETAL: The patient's left groin shows a well-healed surgical scar in the inguinal hernia distribution with moderate to severe tenderness with palpation over the superior lateral aspect of the incision itself and towards the anterior superior iliac spine. No masses are palpated. No radiation of pain is demonstrated with palpation. Right side is nontender without surgical scar. The patient's back shows spine grossly in the midline. Cervical lordotic curvature is normal as is thoracic kyphotic curvature and lumbar lordotic curvature. Cervical paraspinous musculature is symmetrical on inspection with palpation, shows some moderate tenderness with palpation bilaterally in the middle and lower distribution of paraspinous musculature into the superior, medial and lateral trapezius; again slightly worse on the right than the left, but present bilaterally without trigger points without radiation. The patient has full rotational motion of the cervical spine, both laterally as well as extension and flexion without significant reproduction of pain. Upper extremities show deep tendon reflexes 2+ in the biceps and triceps tendons. Motor exam is approximately 4 on a scale of 5 on the right and 5/5 on the left with qa specialist strength, biceps and triceps flexion. Peripheral pulses are 2+ radial distribution. PLAN: Options were discussed with the patient and the patient's old chart was reviewed as his current medication regimen and updated. Current review of systems updated today as well. As the patient is having increased return in radicular symptoms in a C5-C6 to C6-C7 distribution, again more on the right than the left, we will preauthorize the patient for cervical epidural steroid injection. He did very well with the last injection with pain lasting over 6 weeks, now returning, but only to about 25% return. Also, we will preauthorize the patient for a left ilioinguinal nerve block as he is having some significant post-herniorrhaphy pain, pending ultrasound which was ordered by his surgeon later next week. The patient will return to clinic in approximately 1-1/2 weeks and we will plan on cervical epidural steroid injection at that time with a left ilioinguinal nerve block to follow. WAYNE MARTIN MD DR: NI/rebecca JOB#: [id number] / [id number]
== END | disposition home or self-care (01) ==
LOC: PNCL 07:47
PROVIDERS: ATTEND Anesthesiology
DX: M50.10 Cervical disc disorder with radiculopathy, unspecified cervical region (principal)
CPT/HCPCS: 99212

== ENCOUNTER → 2017-03-24 | Outpatient (CLI) | payer OTHER ==
[2017-03-16 12:41] VITALS: BP 116/80
--- NOTE | 2017-03-24 13:25 | KCIC ---
EXT NON VASC LEFT History: Left inguinal pain, previous hernia repair Comparison: None. Findings: Sonographic images of the left inguinal region are submitted. There is some shadowing in the region of the left lower quadrant near scar probably due to the presence of hernia mesh. No discrete hernia or other solid or cystic lesion is demonstrated at the site of concern in the left inguinal region. Impression: 1. No abnormality is demonstrated by ultrasound. Electronically signed by: Zac Crook MD (03/24/2017 1:22 PM) [facility]
== END | disposition home or self-care (01) ==
LOC: KCIC US 12:05
PROVIDERS: ATTEND Physician Assistant Medical
DX: R10.30 Lower abdominal pain, unspecified (principal)
CPT/HCPCS: 76881

== ENCOUNTER → 2017-03-31 | Outpatient (CLI) | payer OTHER ==
[2017-03-16 12:41] VITALS: BP 116/80
[~2017-03-31] MED LIST changes: +AMIT25TA PO; +BARIUM SULFATE 340 GM SUSPENSION. PO ONE; +BARIUM SULFATE 60% 355 ML SUSP PO ONE; +SIMETHICONE/SOD BICARB/CITRIC ACID PACKET. PO ONE
--- NOTE | 2017-03-31 12:43 | RAD ---
Esophagram, 03/31/2017: History: Dysphasia, food gets stuck The study was performed utilizing high density barium and regular liquid barium. 2.8 minutes of fluoroscopy time was utilized. 9 static and dynamic fluoroscopic sequences were recorded. The swallowing mechanism is intact. There is no obstruction to flow of the barium through the cervical esophagus.. The esophageal peristalsis is normal. A small sliding-type hiatal hernia was identified with an associated nonstenotic Schatzki's ring. The Schatzki's ring opens up to a diameter of just over 2 cm. Obstructive symptoms can vary depending upon the patient's eating habits. No gastroesophageal reflux was demonstrated. IMPRESSION: 1. Small sliding-type hiatal hernia as described above. 2. The esophagram is otherwise unremarkable.
== END | disposition home or self-care (01) ==
LOC: RAD 10:52
PROVIDERS: ATTEND Internal Medicine Gastroenterology
DX: K22.2 Esophageal obstruction (principal); K44.9 Diaphragmatic hernia without obstruction or gangrene
CPT/HCPCS: 74220

== ENCOUNTER → 2017-04-01 | Outpatient (CLI) | payer OTHER ==
[2017-03-16 12:41] VITALS: BP 116/80
[~2017-04-01] MED LIST changes: -BARIUM SULFATE 340 GM SUSPENSION. PO ONE; -BARIUM SULFATE 60% 355 ML SUSP PO ONE; +BUPIVACAINE MPF 0.25% 10 ML VIAL. ONE; +IOHEXOL 180 MG/ML 10 ML VIAL. ONE; -SIMETHICONE/SOD BICARB/CITRIC ACID PACKET. PO ONE; +methylPREDNISolone ACETATE 40 MG/ML VIAL. ONE; +methylPREDNISolone ACETATE 80 MG/ML VIAL. ONE
--- NOTE | 2017-04-01 23:41 | PAIN ---
DATE OF SERVICE: 04/01/2017 PROGRESS NOTE FOR PAIN CLINIC DIAGNOSES: 1. Cervical radiculopathy with cervical degenerative disk disease. 2. Left post inguinal herniorrhaphy pain. HISTORY OF PRESENT ILLNESS: The patient is a 51-year-old male who returns for followup status post cervical epidural steroid injections x 2. The patient reports approximately 50% improvement over the last several weeks, has had a preauthorization for an additional injection and also in the left ilioinguinal distribution with some post-herniorrhaphy pain; returns today reporting significant pain base of the neck, bilateral shoulders and upper extremities; returning after significant improvement after his initial injection again close to 100% improvement, now about 50% improvement in the base of the neck and shoulders. The patient reports as a 10 on scale 10 as worst, 8 on average and a 5 at least and is a 5 today. The patient reports aching, sharp, shooting becoming more severe and more noticeable. The patient's left groin with also some significant pain with motion of the leg, standing, weightbearing with the left leg and sitting. The patient reports no new motor or sensory deficits and no new bowel or bladder incontinence or other complaints. Reports he sleeps fairly well at night, it can awaken him occasionally from the neck pain about every 6 hours, so he can reposition, take pain medicine, get out of bed and get the pain to decrease to some extent. PHYSICAL EXAMINATION: VITAL SIGNS: Today, the patient's blood pressure 114/82, pulse 85, respirations 18, temperature 98.3 degrees Fahrenheit, height 6 feet and weight is 236 pounds. GENERAL: The patient is awake, alert, oriented, appropriate and very pleasant demeanor. HEENT: Head shows normocephalic and atraumatic. Extraocular movements are intact, symmetrical. Oral cavity: Mucous membranes moist and pink. Dentition is intact. NECK: Shows anterior throat supple without palpable lymphadenopathy noted. Swallow reflex symmetrical. CHEST: Shows normal with inspection. Breath sounds clear to auscultation bilaterally. HEART: Shows S1 and S2 clear. No murmurs auscultated. ABDOMEN: Soft, nontender and nondistended. No palpable organomegaly. No rebound or guarding demonstrated. BACK: The patient's back shows spine grossly in the midline. Cervical paraspinous muscle shows symmetrical on inspection with palpation shows some moderate tenderness bilaterally, but only diffusely in the middle and lower distribution of paraspinous muscles and superior medial and lateral trapezius bilaterally, right essentially equal to left with palpation. No atrophy or hypertrophy. The patient has good rotational motion both laterally greater than 45 degrees right and left well as full extension, full forward flexion without significant difficulty. Upper extremities show deep tendon reflexes at 2+ in the biceps, triceps tendons. Motor exam is approximately 4 on a scale 5 with right engraver wood strength bicep and tricep flexion 5/5 on the left. Peripheral pulses are 2+ radial distribution. No peripheral edema is noted bilaterally. The patient's left groin shows a well-healed surgical scar from previous herniorrhaphy and shows significant tenderness in the superior lateral aspect just inferior medial to the anterior superior iliac spine without significant radiation. Options were discussed with the patient. The patient's old chart was reviewed as well as his current medication regimen updated. Current review of systems updated today as well and we will proceed with a third in the series cervical epidural steroid injection as well as a left ilioinguinal nerve block. Risks were discussed with each including, but not limited to bleeding, infection, possibility of epidural hematoma and subsequent neurological compromise, dural puncture, headaches, spinal cord and/or nerve damage, side effects of steroid medication and poor results regarding pain control as well as spread of local anesthetic in the left groin as well as numbness residual. The patient understands and wishes to proceed. The patient will return to clinic in approximately 2 weeks for followup. He was counseled to return appointment, activity level and side effects to be aware of. DIAGNOSES: 1. Cervical radiculopathy with cervical degenerative disk disease. 2. Left post-herniorrhaphy pain. PROCEDURES: 1. Cervical epidural steroid injection. 2. Left ilioinguinal nerve block. Procedures, both done under local anesthetic using C-arm fluoroscopic guidance for the cervical epidural steroid injection and at the C6-C7 level with medications injected for the cervical epidural steroid injection, a total of 120 mg Depo-Medrol plus 5 mL of preservative-free normal saline and 2 mL of Isovue for contrast. For the left inguinal hernias, 5 mL of 0.25% bupivacaine and 40 mg Depo-Medrol with negative aspiration throughout on each. CONDITION AT DISCHARGE: Stable. The patient tolerated procedure well, had no complications. WAYNE MARTIN MD DR: Cyndy JOB#: [id number] / [id number]
== END | disposition home or self-care (01) ==
LOC: PNCL 10:58
PROVIDERS: ATTEND Anesthesiology
DX: M50.123 Cervical disc disorder at C6-C7 level with radiculopathy (principal); K40.90 Unilateral inguinal hernia, without obstruction or gangrene, not specified as recurrent; Z88.0 Allergy status to penicillin; I73.9 Peripheral vascular disease, unspecified; E78.00 Pure hypercholesterolemia, unspecified; I10 Essential (primary) hypertension; Z90.49 Acquired absence of other specified parts of digestive tract; K21.9 Gastro-esophageal reflux disease without esophagitis
CPT/HCPCS: 62321; 64425; J1030; J1040; J3490

== ENCOUNTER → 2017-04-15 | Outpatient (CLI) | payer OTHER ==
[2017-04-13 08:36] VITALS: BP 121/87
[~2017-04-15] MED LIST changes: -BUPIVACAINE MPF 0.25% 10 ML VIAL. ONE; +COLE1TAB2 PO; +ESOM40CA PO; -IOHEXOL 180 MG/ML 10 ML VIAL. ONE; +LOSA1TAB25 PO; +LOSA50TA6 PO; -methylPREDNISolone ACETATE 40 MG/ML VIAL. ONE; -methylPREDNISolone ACETATE 80 MG/ML VIAL. ONE
--- NOTE | 2017-04-15 16:42 | KCIC ---
Three-view study of the right shoulder HISTORY: Chronic right shoulder pain. FINDINGS: No acute fracture or dislocation or osteolytic process is seen. 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 IMPRESSION: No acute fracture. Electronically signed by: Donnie Alvarado MD (04/15/2017 4:38 PM) [facility] [place]
== END | disposition home or self-care (01) ==
LOC: KCIC 14:13
PROVIDERS: ATTEND Physician Assistant Medical
DX: M19.011 Primary osteoarthritis, right shoulder (principal)
CPT/HCPCS: 73030

== ENCOUNTER → 2017-04-23 | Outpatient (CLI) | payer OTHER ==
[2017-04-13 08:36] VITALS: BP 121/87
--- NOTE | 2017-04-23 12:35 | KCIC ---
Examination: MRI of the right shoulder without contrast HISTORY: History of right shoulder pain, decreased range of motion COMPARISON: None available TECHNIQUE: Multiplanar, multisequence MR imaging of the right shoulder performed without contrast FINDINGS: The long head of the biceps tendon is within the bicipital groove with the attachment of the long head of biceps tendon to labral anchor grossly appears grossly appears intact. The attachment of the subscapularis tendon, supraspinatus, infraspinatus tendon grossly appears intact. There is mild increased signal identified in the supraspinatus tendon. There is mild increased signal identified throughout the labrum likely degeneration. In the posterior labrum , there is focal loss of signal probably due to mild motion artifact and less likely labral tear as there is no evidence of increased signal typically seen with a labral tear. Mild increasing identified in the superior labrum likely prominent cerebral sulcus There is mild increased signal identified in the supraspinatus tendon likely mild tendinosis Severe degenerative changes identified in the acromioclavicular joint. Small osteophyte formation identified in the distal aspect of the inferior portion of the clavicle abutting the supraspinatus. The acromion is type II. The muscle bulk grossly appears unremarkable. IMPRESSION: 1. Severe degenerative changes in the acromioclavicular joint with small inferior osteophyte formation identified in the distal clavicle abutting the superior aspect of the supraspinatus tendon. Correlate for impingement. 2. Mild tendinosis supraspinatus tendon. 3. In the posterior labrum , there is focal loss of signal probably due to mild motion artifact and less likely labral tear as there is no evidence of increased signal typically seen with a labral tear. If there is suspicion for labral tear, consider MR arthrogram. Electronically signed by: Tera Richey MD (04/23/2017 12:32 PM) [facility]
== END | disposition home or self-care (01) ==
LOC: KCIC MRI 11:07
PROVIDERS: ATTEND Physician Assistant Medical
DX: M75.101 Unspecified rotator cuff tear or rupture of right shoulder, not specified as traumatic (principal); M25.711 Osteophyte, right shoulder
CPT/HCPCS: 73221

== ENCOUNTER → 2017-04-24 | Outpatient (CLI) | payer OTHER ==
[2017-04-13 08:36] VITALS: BP 121/87
[~2017-04-24] MED LIST changes: +BUPIVACAINE MPF 0.25% 10 ML VIAL. ONE; +methylPREDNISolone ACETATE 40 MG/ML VIAL. ONE
--- NOTE | 2017-04-24 13:26 | PAIN ---
DATE OF SERVICE: 04/24/2017 DIAGNOSES: 1. Left post-inguinal herniorrhaphy pain. 2. Cervical radiculopathy with cervical degenerative disk disease. HISTORY OF PRESENT ILLNESS: The patient is a 51-year-old male who returns for followup status post cervical epidural steroid injections x 3 and left inguinal nerve blocks x 2. The patient reports near 100% improvement of left ilioinguinal nerve block after his last injection, which was 04/09/2017. The patient reports the pain is slightly beginning to return in the left groin and into the anterior thigh, but only slightly worse with activity, standing, walking, changing positions. The patient reports it awakens him from sleep occasionally, but not every night. His neck is his main problem with waking him from sleep. It hurts in the base of the neck, bilateral shoulders and upper extremities, similar to what it was previously, but not to this severe extent. The patient reports the pain in the groin is only a 3 on a scale of 10. His neck is a 9 at its worst, 6 on average and a 4 at its least and is a 4 today. The pain in the groin is 3. The patient reports it is aching, dull, tight, shooting, tingling in the left groin. The patient reports no new motor or sensory deficits. No new bowel or bladder incontinence or other complaints. PHYSICAL EXAMINATION: VITAL SIGNS: The patient's blood pressure is 114/76, pulse 77, respirations 16, temperature 98.4 degrees Fahrenheit, height 6 feet 0 inches, weight is 229 pounds. GENERAL: The patient is awake, alert, oriented, appropriate, very pleasant demeanor. HEENT: Shows normocephalic, atraumatic. Extraocular movements are intact and symmetrical. Oral cavity is pink. Mucous membranes moist and pink. Dentition is intact. NECK: Shows anterior throat supple without palpable lymphadenopathy noted. Swallow reflex symmetrical. CHEST: Shows normal on inspection. Breath sounds clear to auscultation bilaterally. HEART: Sounds S1, S2 clear, no murmurs auscultated. ABDOMEN: Obese, soft, nontender, nondistended, no palpable organomegaly is noted. No rebound or guarding demonstrated. BACK: Shows spine grossly in the midline. Neck shows a paraspinous musculature that is symmetrical, with palpation shows some moderate tenderness in the middle and lower distribution of the paraspinous musculature in the cervical distribution as well as superior medial trapezius bilaterally, but good rotation of motion both laterally greater than 45 degrees as well as extension and full forward flexion without difficulty. EXTREMITIES: The patient's upper extremities show deep tendon reflexes 2+ in biceps, triceps tendon. Motor exam is normal with line clearance foreman strength rated 5/5 in his biceps, triceps, flexion. The patient's lower extremities show well-healed surgical scar in the left inguinal region, with palpation shows significant tenderness just anterior and on the anterior superior iliac spine and just medial and inferior to this at the area of the surgical scar, with some radiation with palpation into the anterior upper thigh only. Options were discussed with the patient. The patient's old chart was reviewed. His current medication regimen updated, current review of systems updated today as well. We will proceed with a repeat left ilioinguinal nerve block, with the risks discussed including but not limited to bleeding, infection, possibility of intravascular injection sequelae, spread of local anesthetic and numbness, side effects of steroid medication as well as poor results regarding pain control. The patient understands and wished to proceed. The patient will return to clinic in approximately 2 weeks in followup. He was counseled on return appointment, activity level and side effects to be aware of. DIAGNOSIS: Chronic postsurgical pain, post left inguinal herniorrhaphy pain. PROCEDURES: Left ilioinguinal nerve block using a sterile prep and drape under local anesthetic. MEDICATION INJECTED: A total of 40 mg Depo-Medrol, plus a total of 5 mL of 0.25% bupivacaine after negative aspiration. CONDITION AT DISCHARGE: Stable. The patient tolerated the procedure well and no complications. WAYNE MARTIN MD DR: NI/rebecca JOB#: [id number] / [id number]
== END | disposition home or self-care (01) ==
LOC: PNCL 08:06
PROVIDERS: ATTEND Anesthesiology
DX: G89.28 Other chronic postprocedural pain (principal); M50.10 Cervical disc disorder with radiculopathy, unspecified cervical region; E78.00 Pure hypercholesterolemia, unspecified; I10 Essential (primary) hypertension; K21.9 Gastro-esophageal reflux disease without esophagitis; Z87.01 Personal history of pneumonia (recurrent); Z90.49 Acquired absence of other specified parts of digestive tract; Z88.0 Allergy status to penicillin
CPT/HCPCS: 64425; J1030; J3490

== ENCOUNTER → 2017-08-06 | Outpatient (CLI) | payer OTHER | END | disposition home or self-care (01) | LOC: KCIC US 13:17 | DX: E01.0 Iodine-deficiency related diffuse (endemic) goiter (principal) | CPT/HCPCS: 76536 ==

== ENCOUNTER → 2017-09-09 | Outpatient (CLI) | payer OTHER | END | disposition home or self-care (01) | LOC: PNCL 10:35 | DX: M50.10 Cervical disc disorder with radiculopathy, unspecified cervical region (principal) | CPT/HCPCS: 99212 ==

== ENCOUNTER → 2017-09-15 | Outpatient (CLI) | payer OTHER | END | disposition home or self-care (01) | LOC: RT 18:33 | DX: G47.33 Obstructive sleep apnea (adult) (pediatric) (principal); I10 Essential (primary) hypertension; E11.9 Type 2 diabetes mellitus without complications; E78.00 Pure hypercholesterolemia, unspecified; K21.0 Gastro-esophageal reflux disease with esophagitis | CPT/HCPCS: 95810 ==

== ENCOUNTER → 2017-09-18 | Outpatient (CLI) | payer OTHER ==
[~2017-09-18] MED LIST changes: -AMIT25TA PO; -ASPI-612 PO; -ATEN25TA PO; -ATOR10TA60 PO; -BUPIVACAINE MPF 0.25% 10 ML VIAL. ONE; -COLE1TAB2 PO; -CYCL10TA2 PO; -DICY20TA3 PO; -DOCU-150 PO; -DOXA2TAB2 PO; -DULO30CA2 PO; -ESOM40CA PO; -HYDR-2762 PO; -IBUP-1007 PO; +IOHEXOL 180 MG/ML 10 ML VIAL.; -LOSA1TAB19 PO; -LOSA1TAB25 PO; -LOSA25TA4 PO; -LOSA50TA6 PO; -MELO7.5T29 PO; -NITR0.4T SL; -ONDA4TAB10 PO; -OXYC-323 PO; -Oxycodone Hcl/Acetaminophen PO; -PANT40TA3 PO; -PANT40TA5 PO; -SERT100T PO; -SIMV10TA3 PO; -SUCR1TAB35 PO; -TIZA4TAB PO; +methylPREDNISolone ACETATE 40 MG/ML VIAL.; -methylPREDNISolone ACETATE 40 MG/ML VIAL. ONE; +methylPREDNISolone ACETATE 80 MG/ML VIAL.; -prostate medication
== END | disposition home or self-care (01) ==
LOC: PNCL 08:22
DX: M50.123 Cervical disc disorder at C6-C7 level with radiculopathy (principal); E78.00 Pure hypercholesterolemia, unspecified; I10 Essential (primary) hypertension; Z87.01 Personal history of pneumonia (recurrent); Z90.49 Acquired absence of other specified parts of digestive tract; K21.9 Gastro-esophageal reflux disease without esophagitis; N40.0 Benign prostatic hyperplasia without lower urinary tract symptoms; Z98.890 Other specified postprocedural states; Z88.0 Allergy status to penicillin; Z82.49 Family history of ischemic heart disease and other diseases of the circulatory system; Z83.79 Family history of other diseases of the digestive system
CPT/HCPCS: 62321; J1030; J1040; Q9965

== ENCOUNTER → 2017-10-06 | Outpatient (CLI) | payer OTHER ==
[~2017-10-06] MED LIST changes: +LIDOCAINE 1% PF 2 ML VIAL.
== END | disposition home or self-care (01) ==
LOC: PNCL 07:37
DX: M50.123 Cervical disc disorder at C6-C7 level with radiculopathy (principal); Z88.0 Allergy status to penicillin; E78.00 Pure hypercholesterolemia, unspecified; I10 Essential (primary) hypertension; Z87.01 Personal history of pneumonia (recurrent); Z90.49 Acquired absence of other specified parts of digestive tract; K21.9 Gastro-esophageal reflux disease without esophagitis; N40.0 Benign prostatic hyperplasia without lower urinary tract symptoms; Z98.890 Other specified postprocedural states; Z82.49 Family history of ischemic heart disease and other diseases of the circulatory system; Z83.79 Family history of other diseases of the digestive system
CPT/HCPCS: 62321; J1030; J1040; Q9965

== ENCOUNTER → 2017-11-18 | Outpatient (CLI) | payer OTHER | END | disposition home or self-care (01) | LOC: PNCL 07:57 | DX: M50.10 Cervical disc disorder with radiculopathy, unspecified cervical region (principal); I11.9 Hypertensive heart disease without heart failure; E11.9 Type 2 diabetes mellitus without complications; E78.5 Hyperlipidemia, unspecified; E78.00 Pure hypercholesterolemia, unspecified; E01.0 Iodine-deficiency related diffuse (endemic) goiter; K21.9 Gastro-esophageal reflux disease without esophagitis | CPT/HCPCS: 99212 ==

== ENCOUNTER → 2017-12-03 | Outpatient (CLI) | payer OTHER | END | disposition home or self-care (01) | LOC: KCIC MRI 09:45 | DX: M51.16 Intervertebral disc disorders with radiculopathy, lumbar region (principal); M48.061 Spinal stenosis, lumbar region without neurogenic claudication; Z88.0 Allergy status to penicillin; E78.00 Pure hypercholesterolemia, unspecified; E11.9 Type 2 diabetes mellitus without complications; I11.9 Hypertensive heart disease without heart failure; E01.2 Iodine-deficiency related (endemic) goiter, unspecified; K21.9 Gastro-esophageal reflux disease without esophagitis; Z87.01 Personal history of pneumonia (recurrent); Z90.49 Acquired absence of other specified parts of digestive tract; N40.0 Benign prostatic hyperplasia without lower urinary tract symptoms; Z98.890 Other specified postprocedural states; Z82.49 Family history of ischemic heart disease and other diseases of the circulatory system; Z83.79 Family history of other diseases of the digestive system; Z79.899 Other long term (current) drug therapy; M50.10 Cervical disc disorder with radiculopathy, unspecified cervical region; Z79.84 Long term (current) use of oral hypoglycemic drugs | CPT/HCPCS: 72148 ==

== ENCOUNTER → 2017-12-16 | Outpatient (CLI) | payer OTHER ==
[2017-04-13 08:36] VITALS: BP 121/87
[~2017-12-16] MED LIST changes: +AMIT25TA PO; +AMLO5TAB2 PO; +ASPI-612 PO; +ATEN25TA PO; +ATOR10TA60 PO; +BUPR300T4 PO; +COLE1TAB2 PO; +CYCL10TA2 PO; +DICY20TA3 PO; +DOCU-150 PO; +DOXA2TAB2 PO; +DULO30CA2 PO; +ESOM40CA PO; +HYDR-2762 PO; +IBUP-1007 PO; -IOHEXOL 180 MG/ML 10 ML VIAL.; +IOHEXOL 180 MG/ML 10 ML VIAL. ONE; -LIDOCAINE 1% PF 2 ML VIAL.; +LIDOCAINE 2% PF 2ML VIAL. ONE; +LOSA1TAB19 PO; +LOSA1TAB25 PO; +LOSA25TA4 PO; +LOSA50TA6 PO; +MELO7.5T29 PO; +NITR0.4T SL; +ONDA4TAB10 PO; +OXYC-323 PO; +Oxycodone Hcl/Acetaminophen PO; +PANT20TA2 PO; +PANT40TA3 PO; +PANT40TA5 PO; +SERT100T PO; +SIMV10TA3 PO; +SUCR1ORA11 PO; +SUCR1TAB35 PO; +TIZA4TAB PO; +TOPI25TA7 PO; -methylPREDNISolone ACETATE 40 MG/ML VIAL.; +methylPREDNISolone ACETATE 40 MG/ML VIAL. ONE; -methylPREDNISolone ACETATE 80 MG/ML VIAL.; +methylPREDNISolone ACETATE 80 MG/ML VIAL. ONE; +prostate medication
--- NOTE | 2017-12-16 18:46 | PAIN ---
DATE OF SERVICE: 12/16/2017 DIAGNOSES: 1. Cervical radiculopathy with cervical degenerative disk disease. 2. Lumbar radiculopathy with lumbar degenerative disk disease. HISTORY OF PRESENT ILLNESS: The patient is a 52-year-old male who returns for followup status post cervical epidural steroid injection x 2. The patient also had significant pain in the low back and left lower extremity in radicular fashion. We obtained an MRI scan since then with showing of L3-L4, L4-L5, very shallow posterior central protrusion without neural impingement at L4-L5 and L3-L4 showing greater neural foraminal narrowing on the right exiting contact of the undersurface to the exiting right L3 nerve root by disk osteophyte complex. The patient reports still significant pain in the low back when he is walking, standing, changing positions; better with sitting, but keeping him awake at night, is not able to sleep hardly at all secondary to the pain, especially on his left side. The patient reports the pain is a 10 on a scale of 10 at its worst, 8 on average, 7 at its least and is a 7 today. The patient reports an aching, sharp, shooting, tingling, stabbing, becoming severe, more unbearable as time goes on; worse with walking, standing as well. The patient's neck is doing much better after 2 cervical epidural steroid injections. PHYSICAL EXAMINATION: VITAL SIGNS: The patient's blood pressure is 117/78, pulse 73, respirations 20, temperature is 98.0 degrees Fahrenheit, height is 6 feet 0 inches, weight is 239 pounds. GENERAL: The patient is awake, alert, oriented, appropriate, very pleasant demeanor. HEENT: Head shows normocephalic, atraumatic. Extraocular movements are intact and symmetrical. Oral cavity, mucous membranes are moist and pink. Dentition is intact. NECK: Shows anterior throat supple without palpable lymphadenopathy noted. Swallow reflex is symmetrical. CHEST: Shows normal with inspection. Breath sounds are clear to auscultation bilaterally. HEART: Shows S1, S2 clear. No murmurs auscultated. ABDOMEN: Soft, nontender, nondistended. No palpable organomegaly is noted. No rebound or guarding demonstrated. BACK: Shows spine grossly in the midline. Normal appearing thoracic kyphosis and lumbar lordotic curvature. Lumbar paraspinous musculature shows symmetrical on inspection, on palpation shows some moderate tenderness diffusely bilaterally, slightly more on the left than the right, but otherwise fairly symmetrical. No difficulty with rotational motion both right and left lateral greater than 10 degrees as well as extension greater than 10 degrees, forward flexion 45 degrees without significant pain reported. EXTREMITIES: The patient's lower extremities show deep tendon 2+ in the patellar, 1+ tendo-calcaneus tendons. Motor exam is strong 5/5 dorsiflexion on the right and 4/5 on the left. Peripheral pulses are 1+ posterior tibia. No peripheral edema is noted. Options were discussed with the patient. The patient's old chart was reviewed as his current medication regimen and updated. His current medications updated as well. We will proceed with a lumbar epidural steroid injection today under fluoroscopic guidance. Risks were again discussed including, but not limited to bleeding, infection, possibility of epidural hematoma and subsequent neurological compromise, dural puncture, headache, spinal cord and/or nerve damage, side effects of steroid medication and poor results regarding pain control. The patient understands and wished to proceed. The patient will return to the clinic in approximately 2 weeks for followup. She was counseled to return appointment, activity level and side effects to be aware of. DIAGNOSIS: Lumbar radiculopathy with lumbar degenerative disk disease. PROCEDURE: Lumbar epidural steroid injection, translaminar approach at L4-L5 level using under sterile prep and drape using local anesthetic. MEDICATION INJECTED: A total of 120 mg Depo-Medrol plus 5 mL of preservative-free normal saline and 2 mL of Isovue for contrast. CONDITION: Stable. Today, the patient discharged in good and stable condition, had no complications. WAYNE MARTIN MD DR: NI/rebecca JOB#: [id number] / [id number]
== END | disposition home or self-care (01) ==
LOC: PNCL 07:56
PROVIDERS: ATTEND Anesthesiology
DX: M51.16 Intervertebral disc disorders with radiculopathy, lumbar region (principal); M50.30 Other cervical disc degeneration, unspecified cervical region; Z88.0 Allergy status to penicillin; E78.00 Pure hypercholesterolemia, unspecified; I10 Essential (primary) hypertension; Z87.01 Personal history of pneumonia (recurrent); Z90.49 Acquired absence of other specified parts of digestive tract; K21.9 Gastro-esophageal reflux disease without esophagitis; N40.0 Benign prostatic hyperplasia without lower urinary tract symptoms; Z98.890 Other specified postprocedural states; K76.9 Liver disease, unspecified; Z82.49 Family history of ischemic heart disease and other diseases of the circulatory system; Z83.79 Family history of other diseases of the digestive system
CPT/HCPCS: 62323; J1030; J1040; J2001; Q9965

== ENCOUNTER → 2018-01-19 | Outpatient (CLI) | payer OTHER ==
[2017-04-13 08:36] VITALS: BP 121/87
[~2018-01-19] MED LIST changes: -AMLO5TAB2 PO; +AMLO5TAB7 PO; +BUPIVACAINE MPF 0.25% 10 ML VIAL. ONE; -IOHEXOL 180 MG/ML 10 ML VIAL. ONE; -LIDOCAINE 2% PF 2ML VIAL. ONE; -LOSA25TA4 PO; +LOSA25TA5 PO; -LOSA50TA6 PO; +LOSA50TA7 PO; -methylPREDNISolone ACETATE 80 MG/ML VIAL. ONE
--- NOTE | 2018-01-19 11:33 | PAIN ---
DATE OF SERVICE: 01/19/2018 PROGRESS NOTE FOR PAIN CLINIC DIAGNOSES: 1. Cervical radiculopathy with cervical degenerative disk disease. 2. Lumbar radiculopathy with lumbar degenerative disk disease. 3. Myofascial pain. HISTORY OF PRESENT ILLNESS: The patient is a 52-year-old male who returns for followup status post cervical epidural steroid injection x 2 and lumbar epidural steroid injection x 1. The patient reports that his back is doing fantastic about 90% improved. Neck is trying to become more stiff with increased pain, not with so much radiation to the upper extremities at this time but is having significant pain in the base of the neck, upper superior medial shoulders with very firm stiff pain, which is a different quality. The patient reports it is a 10 on a scale of 10 at its worst, 8 on average, 8 at its least and is an 8 today. It is stabbing, aching, sharp, shooting, constant, becoming more severe, more unbearable, tight and difficulty with rotational motion of the head, especially with right and left lateral rotation occasionally awakening him from sleep at night. The patient reports no new motor or sensory deficits. No new bowel or bladder incontinence or other complaints. PHYSICAL EXAMINATION: VITAL SIGNS: The patient's blood pressure 121/69, pulse 84, respirations are 20, temperature is 98.4 degrees Fahrenheit, height is 6 feet and weight is 240 pounds. GENERAL: The patient is awake, alert, oriented, appropriate and very pleasant demeanor. HEENT: Head shows normocephalic and atraumatic. Extraocular movements intact and symmetrical. Oral cavity: Mucous membranes are moist and pink. Dentition intact. NECK: Shows anterior throat supple without palpable lymphadenopathy noted. Swallow reflex symmetrical. BACK: Posterior cervical musculature is symmetrical but significant tenderness and very firm rope-like musculature throughout the upper, middle and lower distribution of the paraspinous muscles, especially into the superior medial trapezius, slightly more on the left than the right. It is very firm, very tender with some minor radiation on the left side into the lateral shoulder with palpation, very firm rope-like musculature bilaterally. The patient shows limited rotational motion secondary to pain, especially with right and the left lateral rotation, forward flexion performed without too much difficulty with extension exacerbates the pain on the left side as well. EXTREMITIES: The patient's upper extremities show deep tendon reflexes 2+ in the biceps and triceps tendons. 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 Peripheral pulses are 2+ radial distribution. No peripheral edema is noted. CHEST: Shows normal with inspection. Breath sounds clear to auscultation bilaterally. HEART: Shows S1 and S2 clear. No murmurs auscultated. ABDOMEN: Soft, nontender and nondistended. No palpable organomegaly is noted. Options were discussed with the patient. The patient's old chart was reviewed as well as his current medication regimen updated. Current review of systems updated today as well. We will proceed with trigger point injections of the bilateral trapezius as well as bilateral cervical paraspinous musculature. Risks were discussed including, but not limited to bleeding, infection, possibility of intravascular injection sequelae, spread of local anesthetic and numbness, side effects of steroid medication and poor results regarding pain control. The patient understands and wished to proceed. The patient will return to the clinic in approximately 2 weeks for followup, was counseled as to return appointment, activity level and side effects to be aware of. DIAGNOSES: 1. Myofascial pain. 2. Cervical radiculopathy with cervical degenerative disk disease. PROCEDURE: Bilateral trigger point injections, trapezius and cervical paraspinous musculature using sterile prep and drape with local anesthetic. MEDICATION INJECTED: A total of 8 mL of 0.25% bupivacaine and total of 40 mg Depo-Medrol after negative aspiration at each injection site. CONDITION AT DISCHARGE: Stable. The patient tolerated the procedure well and had no complications. WAYNE MARTIN MD DR: NI/rebecca JOB#: [id number] / [id number]
== END | disposition home or self-care (01) ==
LOC: PNCL 08:09
PROVIDERS: ATTEND Anesthesiology
DX: M79.1 Myalgia (principal); M51.16 Intervertebral disc disorders with radiculopathy, lumbar region; M50.10 Cervical disc disorder with radiculopathy, unspecified cervical region; Z88.0 Allergy status to penicillin
CPT/HCPCS: 20553; J1030; J3490

== ENCOUNTER → 2018-02-25 | Outpatient (CLI) | payer OTHER ==
[2017-04-13 08:36] VITALS: BP 121/87
[~2018-02-25] MED LIST changes: -BUPIVACAINE MPF 0.25% 10 ML VIAL. ONE; +BUPIVACAINE MPF 0.25% 30 ML VIAL. ONE
--- NOTE | 2018-02-25 16:59 | PAIN ---
DATE OF SERVICE: 02/25/2018 PROGRESS NOTE FOR PAIN CLINIC DIAGNOSES: 1. Cervical radiculopathy with cervical degenerative disk disease. 2. Lumbar radiculopathy with lumbar degenerative disk disease. 3. Myofascial pain. HISTORY OF PRESENT ILLNESS: The patient is a was 52-year-old male who returns for followup status post both cervical epidural steroid injection and lumbar epidural steroid injection with very good results about 90% improvement on each and we had some trigger points done last visit on 01/19/2018. The patient did very well with these with about a 75% improvement as well. Pain is returning now in the neck and upper shoulders, mid upper back and especially in the low back bilaterally. The patient reports it is a 10 on a scale of 10 at its worst, 7 on average, 7 at its least and is a 7 today. The patient reports it is radiating, constant, becoming more severe, stabbing, sharp, tight and shooting in the neck and shoulder as well as in mid and low back. The patient reports it has been awakening him from sleep with the pain in the neck and the upper back, but does not cause any new motor or sensory deficits or other complaints. PHYSICAL EXAMINATION: VITAL SIGNS: The patient's blood pressure 135/86, pulse 69, respirations 16, temperature 98.0 degrees Fahrenheit, height 6 feet, weight is 245 pounds. GENERAL: The patient is awake, alert, oriented, appropriate, very pleasant demeanor. HEENT: Head is normocephalic, atraumatic. Extraocular movements are intact and symmetrical. Oral cavity: Mucous membranes are moist and pink. Dentition is intact. NECK: Shows anterior throat supple without palpable lymphadenopathy noted. Swallow reflex symmetrical. CHEST: Shows normal on inspection. Breath sounds clear to auscultation bilaterally. HEART: Shows S1, S2 clear. No murmurs auscultated. ABDOMEN: Soft, nontender, nondistended. No palpable organomegaly is noted. No rebound or guarding demonstrated. BACK: Shows spine grossly in the midline. Normal appearing thoracic kyphosis and lumbar lordotic curvature. Lumbar paraspinous musculature shows some moderate tenderness and very firm rope-like musculature in the middle and lower distribution of paraspinous muscles in the lumbar distribution, very firm, but without specific radiation. This is also true in superior medial gluteus bilaterally, somewhat more on the right than the left, but very tender, very firm rope-like musculature consistent with trigger point areas. This is true in the cervical distribution as well. This shows symmetry on inspection with palpation shows very firm rope-like musculature throughout the upper, middle, lower distribution of cervical paraspinous musculature especially into the superior medial trapezius, again more on the right than the left and into the rhomboid distribution and also thoracic paraspinous musculature bilaterally again more tender on the right than the left with very firm rope-like musculature consistent with trigger point areas of muscle bilaterally without radiation. The patient has good rotational motion of cervical spine as well as lumbar spine without significant impairment. EXTREMITIES: The patient's upper extremities show deep tendon reflexes 2+ in the biceps, triceps tendons. Motor exam is strong with bellows filler strength rated at 5/5. Lower extremities show deep tendon reflexes 2+ patellar and tendo-calcaneus tendons are 1+. Motor exam is 5/5 and equal dorsiflexion and extension. PLAN: Options were discussed with the patient. The patient's old chart was reviewed as his current medication regimen updated. Current review of systems updated today as well. We will proceed with trigger point injections of the identified musculature. Risks were discussed including but not limited to bleeding, infection, possibility of intravascular injection sequelae, spread and side effects of steroid medication and spread of local anesthetic and numbness as well as poor results regarding pain control. The patient understands and wished to proceed. The patient to return to clinic in approximately 2 weeks for followup, was counseled on return appointment, activity level and side effects to be aware of. DIAGNOSIS: Myofascial pain. PROCEDURE: Trigger point injections, bilateral cervical paraspinous muscles, bilateral trapezius musculature, bilateral thoracic paraspinous muscles, bilateral lumbar paraspinous musculature and bilateral gluteus musculature under sterile prep and drape using local anesthetic. MEDICATION INJECTED: A total of 15 mL of 0.25% bupivacaine as well as 40 mg total of Depo-Medrol after negative aspiration at each injection site. CONDITION AT DISCHARGE: Stable. The patient tolerated procedure well, had no complications. WAYNE MARTIN MD DR: NI/rebecca JOB#: [id number] / [id number]
== END | disposition home or self-care (01) ==
LOC: PNCL 07:38
PROVIDERS: ATTEND Anesthesiology
DX: M79.18 Myalgia, other site (principal); M51.16 Intervertebral disc disorders with radiculopathy, lumbar region; M50.10 Cervical disc disorder with radiculopathy, unspecified cervical region; Z88.0 Allergy status to penicillin
CPT/HCPCS: 20553; J1030; J3490

== ENCOUNTER → 2018-03-08 | Outpatient (CLI) | payer OTHER ==
[2017-04-13 08:36] VITALS: BP 121/87
[~2018-03-08] MED LIST changes: -methylPREDNISolone ACETATE 40 MG/ML VIAL. ONE
--- NOTE | 2018-03-08 21:30 | PAIN ---
DATE OF SERVICE: 03/08/2018 PROGRESS NOTE FOR PAIN CLINIC DIAGNOSES: 1. Myofascial pain. 2. Cervical radiculopathy with cervical degenerative disk disease. 3. Lumbar radiculopathy with lumbar degenerative disk disease. HISTORY OF PRESENT ILLNESS: The patient is a 52-year-old male who returns for followup status post trigger point injections in the cervical trapezius and lumbar paraspinous musculature with good results of about 80% improvement first week and then about 50% improvement overall. The patient reporting a significant pain in the low back radiating to the left lower extremity, mostly in the posterior lateral area of the gluteus and also lateral anterior thigh on the left side and lateral medial knee and medial lower leg on the left, radiating into the calf as well. The patient reports the pain is a 10 on a scale of 10 at its worst, 7 on average, 7 at its least and is a 7 today. The patient reports no new motor or sensory deficits but significant fatigability with walking, standing, change in position, especially bending or crouching. He was fixing a toilet at his home and this has exacerbated the pain significantly, especially the radiating pain, traveling down into his left leg. The patient reports his pain is sharp, tight, shooting, cramping, stabbing, becoming more radiating, more constant, more severe, also pain in the base of the neck and shoulders and some myofascial pain and tightness helped significantly again with the trigger point injections but very temporarily. The patient reports he was increasing his activity, greater distance walking, sitting for longer periods, doing household activities until he was working on the toilet, which exacerbated the pain significantly especially in the low back and left leg as he has had for in a radicular pattern. The patient reports no new motor or sensory deficits and no bowel or bladder incontinence. PHYSICAL EXAMINATION: VITAL SIGNS: The patient's blood pressure is 117/79, pulse is 94, respirations 18, temperature 98.2 degrees Fahrenheit and weight is 244 pounds. GENERAL: The patient is awake, alert, oriented, appropriate and very pleasant demeanor. HEENT: Head shows normocephalic and atraumatic. Extraocular movements are intact and symmetrical. Oral cavity: Mucous membranes are moist and pink. Dentition is intact. NECK: Shows anterior throat supple without palpable lymphadenopathy noted. Swallow reflex symmetrical. CHEST: Shows normal on inspection. Breath sounds clear to auscultation bilaterally. HEART: Shows S1 and S2 clear. No murmurs auscultated. ABDOMEN: Soft, obese, nontender and nondistended. No palpable organomegaly is noted. No rebound or guarding demonstrated. BACK: Shows spine grossly in the midline. Normal-appearing thoracic kyphosis and lumbar lordotic curvature. Paraspinous muscles in the cervical distribution is very firm, very significantly tender at trigger point areas of musculature bilaterally in the middle and lower aspects of the cervical paraspinous musculature is true into the trapezius bilaterally as well, slightly worse on the right than the left and more tender but without specific radiation but very firm rope-like musculature consistent with trigger point areas of musculature, also in the thoracic paraspinous muscles in the superior aspect of the rhomboid distribution of the trapezius. The patient's low back shows again a normal-appearing lumbar lordotic curvature, with palpation shows very significant tender in the middle and lower distribution of the paraspinous muscles in the lumbar distribution, rope-like musculature, very tender, very firm without significant radiation but consistent with trigger point areas of musculature. The patient has good rotation of the lumbar spine, both laterally as well as extension and flexion without exacerbation of the pain. EXTREMITIES: Lower extremities show deep tendon reflexes at 2+ in the patellar, 1+ tendo-calcaneus tendons. Motor exam is strong with 5/5 dorsiflexion and extension. Peripheral pulses are 1+ posterior tibia. No peripheral edema is noted bilaterally. Options were discussed with the patient. The patient's old chart was reviewed as well as his current medication regimen updated. Current review of systems updated today as well. We will proceed with trigger point injections of the identified musculature. Risks were discussed including but not limited to bleeding, infection, possibility of epidural hematoma, possibility of intravenous injection and sequelae, spread of local anesthetic and numbness, side effects of steroid medication and poor results regarding pain control. The patient understands and wished to proceed. The patient will return to the clinic in approximately 2 weeks. We also discussed a preauthorization for a lumbar epidural steroid injection as he is having significant radiating pain in a radicular fashion at the L4-L5 dermatomal distribution on the left and has done very well with these in the past, had near 100% improvement after the last lumbar epidural steroid injection for about a month or closer to 2 months. The patient also is requesting hydrocodone. We will give him 40 tablets of 5/325 mg with instructions, side effects to be aware of discussed with the medication as well. DIAGNOSES: 1. Lumbar radiculopathy with lumbar degenerative disk disease. 2. Cervical radiculopathy with cervical degenerative disk disease. 3. Myofascial pain. PROCEDURE: Today is trigger point injections, bilateral trapezius, bilateral cervical paraspinous musculature, bilateral thoracic paraspinous musculature, bilateral lumbar paraspinous musculature under sterile prep and drape using local anesthetic. MEDICATION INJECTED: A total of 12 mL of 0.25% bupivacaine after negative aspiration at each injection site. CONDITION AT DISCHARGE: Stable. The patient tolerated the procedure well and had no complications. WAYNE MARTIN MD DR: NI/rebecca JOB#: [id number] / [id number]
== END | disposition home or self-care (01) ==
LOC: PNCL 07:58
PROVIDERS: ATTEND Anesthesiology
DX: M79.18 Myalgia, other site (principal); M50.10 Cervical disc disorder with radiculopathy, unspecified cervical region; Z98.890 Other specified postprocedural states; Z88.0 Allergy status to penicillin
CPT/HCPCS: 20553; J3490

== ENCOUNTER → 2018-03-15 | Outpatient (CLI) | payer OTHER ==
[2017-04-13 08:36] VITALS: BP 121/87
[~2018-03-15] MED LIST changes: -BUPIVACAINE MPF 0.25% 30 ML VIAL. ONE
--- NOTE | 2018-03-15 11:52 | KCIC ---
Indication:Elevated liver function tests, liver mass. TECHNIQUE: Grayscale, color Doppler and spectral waveform is of the abdomen obtained. COMPARISON: CT from 03/16/2017. FINDINGS: Pancreas is suboptimally visualized due to overlying bowel gas. IVC is patent. Liver is mildly enlarged measuring 21 cm in longest dimension with diffusely increased echogenicity and decreased through transmission. Main portal vein is patent. No apparent focal hepatic lesion seen. Right kidney measures 12 cm in length without hydronephrosis. CBD measures 4 mm in diameter and is within normal limits. Status post cholecystectomy. No evidence of aortic aneurysm. Spleen is mildly enlarged measuring 14 cm in longest dimension. Left kidney measures 12 cm in length without hydronephrosis. IMPRESSION: 1. Mild hepatosplenomegaly with hepatic steatosis. 2. No apparent focal liver lesion seen. Electronically signed by: Den Khoury DO (03/15/2018 11:49 AM) [id number]
== END | disposition home or self-care (01) ==
LOC: KCIC US 08:47
PROVIDERS: ATTEND Family Medicine
DX: K76.0 Fatty (change of) liver, not elsewhere classified (principal); R16.2 Hepatomegaly with splenomegaly, not elsewhere classified; Z90.49 Acquired absence of other specified parts of digestive tract
CPT/HCPCS: 76700

== ENCOUNTER → 2018-03-19 | Outpatient (CLI) | payer OTHER ==
[2017-04-13 08:36] VITALS: BP 121/87
[~2018-03-19] MED LIST changes: +IOHEXOL 180 MG/ML 10 ML VIAL. ONE; +LIDOCAINE 1% PF 2 ML VIAL. ONE; +methylPREDNISolone ACETATE 40 MG/ML VIAL. ONE; +methylPREDNISolone ACETATE 80 MG/ML VIAL. ONE
--- NOTE | 2018-03-19 22:18 | PAIN ---
DATE OF SERVICE: 03/19/2018 PROGRESS NOTE FOR PAIN CLINIC DIAGNOSES: 1. Cervical radiculopathy with cervical degenerative disk disease. 2. Lumbar radiculopathy with lumbar degenerative disk disease. 3. Myofascial pain. HISTORY OF PRESENT ILLNESS: The patient is a 52-year-old male who returns for followup status post preauthorization for lumbar epidural steroid injection. The patient has obtained that now and would like to proceed and still pain in the low back, left lower extremity as it was previously. The patient reports it is radiating, tingling, cramping, stabbing, shooting, sharp, aching; becoming more severe; worse with walking, standing, change in positions and did very well with injections in the past, however, increases his activity, ability to work, do household activities as well as walking greater distances. He reports he is sleeping about 6 hours a night. It does awaken him from sleep. His low back and left leg and also base of the neck and shoulders are painful. The patient reports the pain in back and legs is 10 on a scale of 10 at its worst, 8 on average, 6 at its least and is a 7 today. The patient reports no new motor or sensory deficits and no new bowel or bladder incontinence or other complaints. PHYSICAL EXAMINATION: VITAL SIGNS: The patient's blood pressure is 105/58, pulse 70, respirations are 18 and temperature 98.2 degrees Fahrenheit. Height 6 feet and weight is 237 pounds. GENERAL: The patient is awake, alert, oriented, appropriate and very pleasant demeanor. HEENT: Head is normocephalic and atraumatic. Extraocular movements are intact and symmetrical. Oral cavity: Mucous membranes moist and pink. Dentition is intact. NECK: Shows anterior throat supple without palpable lymphadenopathy noted. Swallow reflex symmetrical. CHEST: Shows normal on inspection. Breath sounds clear to auscultation bilaterally. HEART: Shows S1 and S2 clear. No murmurs auscultated. ABDOMEN: Soft, nontender and nondistended. No palpable organomegaly is noted. No rebound or guarding demonstrated. BACK: Shows spine grossly in the midline. Normal appearing thoracic kyphosis and lumbar lordotic curvature. Lumbar paraspinous musculature shows symmetrical on inspection and palpation shows some moderate tenderness diffusely bilaterally without radiation. Good rotational motion both right and left lateral greater than 10 degrees as well as extension greater than 10 degrees, forward flexion 45 degrees without difficulty. EXTREMITIES: Lower extremities show deep tendon reflexes at 2+ in the patellar and 1+ tendo-calcaneus tendons. Motor exam is strong with 5/5 dorsiflexion, extension, quadriceps and hamstring flexion and symmetrical. Peripheral pulses are 1+ posterior tibia. No peripheral edema is noted bilaterally. Options were discussed with the patient. The patient's old chart was reviewed as well as his current medication regimen updated. Current review of systems updated today as well. We will proceed with a lumbar epidural steroid injection, this is the first in this series today with fluoroscopic guidance. Risks were again discussed including, but not limited to bleeding, infection, possibility of epidural hematoma and subsequent neurological compromise, dural puncture, headaches, spinal cord and/or nerve damage, side effects of steroid medication as well as poor results regarding pain control. The patient understands and wished to proceed. The patient will return to the clinic in approximately 1 week for followup, was counseled as to return appointment, activity level and side effects to be aware of. DIAGNOSIS: Lumbar radiculopathy with lumbar degenerative disk disease. PROCEDURE: Lumbar epidural steroid injection, translaminar approach at L4-L5 level using C-arm fluoroscopic guidance under sterile prep and drape using local anesthetic. MEDICATION INJECTED: A total of 120 mg Depo-Medrol plus 10 mL of preservative-free normal saline and 2 mL of Isovue for contrast. CONDITION AT DISCHARGE: Stable. The patient tolerated the procedure well and had no complications. WAYNE MARTIN MD DR: NI/rebecca JOB#: [id number] / [id number]
== END | disposition home or self-care (01) ==
LOC: PNCL 10:40
PROVIDERS: ATTEND Anesthesiology
DX: M51.16 Intervertebral disc disorders with radiculopathy, lumbar region (principal); M50.10 Cervical disc disorder with radiculopathy, unspecified cervical region; M79.18 Myalgia, other site; Z88.0 Allergy status to penicillin
CPT/HCPCS: 62323; J1030; J1040; Q9965

== ENCOUNTER → 2018-03-22 | Outpatient (CLI) | payer OTHER ==
[2017-04-13 08:36] VITALS: BP 121/87
[~2018-03-22] MED LIST changes: +BUPIVACAINE MPF 0.25% 10 ML VIAL. ONE; -IOHEXOL 180 MG/ML 10 ML VIAL. ONE; -LIDOCAINE 1% PF 2 ML VIAL. ONE; -methylPREDNISolone ACETATE 80 MG/ML VIAL. ONE
--- NOTE | 2018-03-22 20:15 | PAIN ---
DATE OF SERVICE: 03/22/2018 PROGRESS NOTE FOR PAIN CLINIC DIAGNOSES: 1. Cervical radiculopathy with cervical degenerative disk disease. 2. Lumbar radiculopathy with lumbar degenerative disk disease. 3. Myofascial pain. HISTORY OF PRESENT ILLNESS: The patient is a 52-year-old male who returns for followup after lumbar epidural steroid injection on March 19. The patient reports about 80% improvement so far, doing very well, is very pleased with his progress. He has significant pain in the base of the neck and shoulders and upper back on his last visit and we have him return today for a potential trigger point injection in this area as he has done very well with these in the past as well. The patient reports still significant pain in the base of neck and shoulders. Rates it 10 on a scale of 10 at its worst, 8 on average, 6 at its least and is an 8 today; worse with activities at work, driving a car, reaching above his head, repetitive motions and lifting items with his hands and arms. The patient reports the pain is aching, dull, shooting, stabbing, radiating, becoming more severe with activity. The patient reports his back, however, is over doing very well, sleeping very well with his back and is quite pleased with this. PHYSICAL EXAMINATION: VITAL SIGNS: The patient's blood pressure 133/85, pulse 69, respirations 18 and temperature 97.2 degrees Fahrenheit. Height 6 feet and weight is 241 pounds. GENERAL: The patient is awake, alert, oriented, appropriate and very pleasant demeanor. HEENT: Head shows normocephalic and atraumatic. Extraocular movements are intact and symmetrical. Oral cavity: Mucous membranes moist and pink. Dentition is intact. NECK: Shows anterior throat supple without palpable lymphadenopathy noted. Swallow reflex symmetrical. CHEST: Shows normal on inspection. Breath sounds clear to auscultation bilaterally. HEART: Shows S1 and S2 clear. No murmurs auscultated. ABDOMEN: Soft, nontender and nondistended. No palpable organomegaly is noted. No rebound or guarding demonstrated. BACK: Shows spine grossly in the midline. Normal-appearing thoracic kyphosis and lumbar lordotic curvature. Lumbar paraspinous muscle shows symmetrical on inspection, only very mild tenderness with palpation bilaterally. The patient's neck shows good rotational motion both laterally as well as extension and flexion. Posterior cervical musculature shows symmetrical on inspection, on palpation shows some multiple areas of very firm rope-like musculature, very tender consistent with trigger point areas of musculature in the superior, middle and lower distribution of the cervical paraspinous muscles, also in the trapezius musculature bilaterally with slightly more tender on the right than the left with very firm rope-like very tender musculature consistent with trigger point areas of muscle. This is true into the thoracic paraspinous muscles in the rhomboid distribution in the upper mid thoracic spine as well, again worse on the right than the left, very firm rope-like musculature without specific radiation bilaterally. EXTREMITIES: Upper extremities show deep tendon reflexes 2+ in biceps, triceps tendons. Senior Nuclear Medicine Technologist strength is strong with 5/5 hospice massage therapist as well as bicep, tricep flexion 5/5 and symmetrical. Options were discussed with the patient. The patient's old chart was reviewed as well as current medication list updated. Review of systems updated today as well. We will proceed with trigger point injections of the cervical paraspinous musculature, thoracic paraspinous musculature and trapezius musculature bilaterally. Risks were again discussed including, but not limited to bleeding, infection, possibility of intravascular injection sequelae, spread of local anesthetic and numbness, pneumothorax, side effects of steroid medication and poor results regarding pain control. The patient understands and wished to proceed. The patient will return to the clinic in approximately 2 weeks for followup, was counseled as to return appointment, activity level and side effects to be aware of. DIAGNOSIS: Myofascial pain. PROCEDURE: Trigger point injections, bilateral cervical paraspinous musculature, bilateral thoracic paraspinous musculature, bilateral trapezius musculature under sterile prep and drape using local anesthetic. MEDICATION INJECTED: A total of 12 mL of 0.25% bupivacaine after negative aspiration at each injection site and total of 40 mg of Depo-Medrol. CONDITION AT DISCHARGE: Stable. The patient tolerated procedure well and had no complications. WAYNE MARTIN MD DR: NI/rebecca JOB#: [id number] / [id number]
== END | disposition home or self-care (01) ==
LOC: PNCL 13:51
PROVIDERS: ATTEND Anesthesiology
DX: M79.18 Myalgia, other site (principal); M51.16 Intervertebral disc disorders with radiculopathy, lumbar region; M50.10 Cervical disc disorder with radiculopathy, unspecified cervical region; Z88.0 Allergy status to penicillin
CPT/HCPCS: 20553; J1030; J3490

== ENCOUNTER → 2018-04-13 | Outpatient (CLI) | payer OTHER ==
[2017-04-13 08:36] VITALS: BP 121/87
[~2018-04-13] MED LIST changes: -HYDR-2762 PO; +HYDR-2765 PO; +LOSA-73 PO; -LOSA25TA5 PO; +LOSA25TA54 PO; -LOSA50TA7 PO; -OXYC-323 PO; +OXYC1TAB15 PO
--- NOTE | 2018-04-13 09:59 | PAIN ---
DATE OF SERVICE: 04/13/2018 PROGRESS NOTE FOR PAIN CLINIC DIAGNOSES: 1. Cervical radiculopathy with cervical degenerative disk disease. 2. Lumbar radiculopathy with lumbar degenerative disk disease. 3. Myofascial pain. HISTORY OF PRESENT ILLNESS: The patient is a 52-year-old male who returns for followup status post lumbar epidural steroid injection as well as trigger point injections. The patient did very well after the first epidural steroid injection with about 80% improvement for the first 3 to 3-1/2 weeks, pain is returning now in the low back and left lower extremity, mostly in the posterior gluteus, posterior lateral thigh, lateral anterior thigh, medial thigh, medial lower leg, medial calf on the left side. It is worse with standing, walking, changing positions, especially standing for more than 20-30 minutes. The patient reports some pain in the base of neck and shoulders, but much better after some trigger point injections he had previously. The patient reports the pain his 10 on a scale 10 at its worst, 7 on average, 7 at its least and is 7 today. Reports stabbing, aching, dull, shooting, becoming more unbearable with walking and standing, severe and constant at times in the low back and left lower extremity is noted. The patient reports no new motor or sensory deficits, no new bowel or bladder incontinence or other complaints. PHYSICAL EXAMINATION: VITAL SIGNS: The patient's blood pressure is 126/85, pulse 63, respirations 18, temperature 98.2 degrees Fahrenheit, height is 6 feet, weight is 237 pounds. GENERAL: The patient is awake, alert, oriented, appropriate, very pleasant demeanor. HEENT: Head is normocephalic, atraumatic. Extraocular movements are intact and symmetrical. Oral cavity: Mucous membranes moist and pink. Dentition is intact. NECK: Shows anterior throat supple without palpable lymphadenopathy noted. Swallow reflex symmetrical. CHEST: Shows normal with inspection. Breath sounds clear to auscultation bilaterally. HEART: Shows S1, S2 clear. No murmurs auscultated. ABDOMEN: Soft, nontender, nondistended. No palpable organomegaly is noted. No rebound or guarding demonstrated. BACK: Shows spine grossly in the midline. Normal-appearing thoracic kyphosis, cervical lordotic curvature and lumbar lordotic curvature with palpation or significant tenderness throughout the cervical paraspinous musculature, right equal to left with very firm rope-like musculature bilaterally in the middle and lower aspect of the cervical paraspinous muscles as well in the superior medial trapezius and lateral trapezius, more on the right than the left. This is ____ the thoracic paraspinous musculature in the mid and lower distribution with very firm rope-like musculature consistent with trigger points as well. This was also found in the lumbar paraspinous musculature with palpation, very firm and tender in the upper, middle and lower distribution, especially in the lower very firm, very tender rope-like musculature in the areas of paraspinous ____ distribution right and left bilaterally without specific radiation. No tenderness over the sacrum or sacroiliac regions. EXTREMITIES: Show upper extremity deep tendon reflexes at 2+ in lower extremities, 2+ in the patellar tendons. Motor exam is strong with 5/5 dorsiflexion, extension, quadriceps and hamstring flexion as well as fourth mate strength, bicep and tricep flexion. Peripheral pulses are 2+ radial, 1+ posterior tibial. The patient shows no edema in the extremities bilaterally. Options were discussed with the patient. The patient's old chart was reviewed was his current medication regimen updated. Current review of systems updated today as well. We will proceed with trigger point injections of the aforementioned musculature. Risks were discussed including, but not limited to bleeding, infection, possibility of intravascular injection and spread of local anesthetic and numbness as well as pneumothorax, side effects of steroid medication and poor results regarding pain control. The patient understands and wished to proceed. The patient will return to clinic in approximately 2 weeks for followup. He was counseled as to return appointment, activity level and side effects to be aware of. DIAGNOSES: 1. Lumbar radiculopathy with lumbar degenerative disk disease. 2. Myofascial pain. PROCEDURES: Trigger point injections, bilateral cervical paraspinous musculature, bilateral thoracic paraspinous musculature, bilateral trapezius musculature, bilateral lumbar paraspinous musculature under sterile prep and drape using local anesthetic. Negative aspiration at each injection site. MEDICATION INJECTED: A total of 40 mg Depo-Medrol plus total of 17 mL of 0.25% bupivacaine. CONDITION AT DISCHARGE: Stable. The patient tolerated the procedure well, had no complications. We will additionally preauthorize the patient for a second lumbar epidural steroid injection as he has returning pain in a radicular fashion at the L4-L5 dermatomal distribution on the left as he had previously gained with about 80% improvement for 3-1/2 weeks following the last injection and the patient will return for a second lumbar epidural steroid injection in approximately 1 week as scheduled. WAYNE MARTIN MD DR: NI/rebecca JOB#: [id number] / [id number]
== END | disposition home or self-care (01) ==
LOC: PNCL 07:37
PROVIDERS: ATTEND Anesthesiology
DX: M79.18 Myalgia, other site (principal); M50.10 Cervical disc disorder with radiculopathy, unspecified cervical region; M51.16 Intervertebral disc disorders with radiculopathy, lumbar region; Z98.890 Other specified postprocedural states
CPT/HCPCS: 20553; J1030; J3490

== ENCOUNTER → 2018-04-28 | Outpatient (CLI) | payer OTHER ==
[2017-04-13 08:36] VITALS: BP 121/87
[~2018-04-28] MED LIST changes: +IOHEXOL 180 MG/ML 10 ML VIAL. ONE; +MODA100T2 PO; +methylPREDNISolone ACETATE 80 MG/ML VIAL. ONE
--- NOTE | 2018-04-28 11:32 | PAIN ---
DATE OF SERVICE: 04/28/2018 PROGRESS NOTE FOR PAIN CLINIC DIAGNOSIS: Lumbar radiculopathy with lumbar degenerative disk disease. HISTORY OF PRESENT ILLNESS: The patient is a 52-year-old male who returns for followup status post lumbar epidural steroid injection x 1 with good results and also trigger point injections, which he has done well with. He returns today after preauthorization, wishing to proceed with a second lumbar epidural steroid injection. The patient reports pain is still in the low back, into the left lower extremity, mostly anterior lateral thigh, but also the posterior thigh as well in the left side and in the low back. The patient reports also pain in the base of the neck. The patient reports the pain is back in his leg as 10 on a scale of 10 at its worst, 8 on average and 7 at its least and is 8 today. The patient reports it is aching, sharp, shooting, stabbing, radiating, becoming more severe, more constant with walking activity, bending, stooping, walking, changing positions. The patient reports it awakens him from sleep about every 6 hours, but most nights, he sleeps fairly well. The patient reports no new motor or sensory deficits, no new bowel or bladder incontinence. Still some pain in the base of the neck as well as the shoulders. PHYSICAL EXAMINATION: VITAL SIGNS: The patient's blood pressure is 133/92, pulse 64, respirations 18, temperature 98.0 degrees Fahrenheit, height is 6 feet, weight is 235 pounds. GENERAL: The patient is awake, alert, oriented, appropriate, very pleasant demeanor. HEENT: Head shows normocephalic, atraumatic. Extraocular movements are intact and symmetrical. Oral cavity: Mucous membranes moist and pink. Dentition is intact. NECK: Shows anterior throat supple without palpable lymphadenopathy noted. Swallow reflex symmetrical. CHEST: Shows normal with inspection. Breath sounds clear to auscultation bilaterally. HEART: Shows S1, S2 clear. No murmurs auscultated. ABDOMEN: Soft, nontender, nondistended. No palpable organomegaly is noted. No rebound or guarding demonstrated. BACK: Shows spine grossly in the midline. Normal-appearing thoracic kyphosis and lumbar lordotic curvature. Lumbar paraspinous muscle shows symmetrical on inspection. On palpation, it shows some moderate tenderness, but only diffusely without significant radiation. EXTREMITIES: The patient's lower extremities show deep tendon reflexes at 2+ in the patellar and 1+ tendo calcaneus tendons. Motor exam is strong with 5/5 dorsiflexion, extension, quadriceps and hamstring flexion symmetrical and equal. The patient's lower extremities show deep tendon reflexes 2+ in the patellar, 1+ tendo-calcaneus tendons. Motor exam is strong with 5/5 dorsiflexion, extension, quadriceps and hamstring flexion. Peripheral pulses are 1+ posterior tibia. No peripheral edema is noted bilaterally. Options were discussed with the patient. The patient's old chart was reviewed as his current medication regimen updated. Current review of systems updated today as well. We will proceed with a second in the series of lumbar epidural steroid injection today with fluoroscopic guidance. Risks were again discussed including, but not limited to bleeding, infection, possibility of epidural hematoma, subsequent neurologic compromise, dural puncture, headaches, spinal cord and/or nerve damage, side effects of steroid medication and poor results regarding pain control. The patient understands and wished to proceed. The patient will return to clinic in approximately 2 weeks for followup, was counseled as to return appointment, activity level and side effects to be aware of. DIAGNOSIS: Lumbar radiculopathy with lumbar degenerative disk disease. PROCEDURE: Lumbar epidural steroid injection, translaminar approach at L4-L5 level using C-arm fluoroscopic guidance under sterile prep and drape using local anesthetic. MEDICATION INJECTED: A total of 120 mg Depo-Medrol plus 10 mL of preservative-free normal saline and 2 mL of Isovue for contrast. CONDITION AT DISCHARGE: Stable. The patient tolerated the procedure well, had no complications. WAYNE MARTIN MD DR: NI/rebecca JOB#: [id number] / [id number]
== END ==
LOC: PNCL 07:44
PROVIDERS: ATTEND Anesthesiology
DX: M51.16 Intervertebral disc disorders with radiculopathy, lumbar region (principal)
CPT/HCPCS: 62323; J1030; J1040; J3490; Q9965

== ENCOUNTER → 2018-05-14 | Outpatient (CLI) | payer OTHER ==
[2017-04-13 08:36] VITALS: BP 121/87
[~2018-05-14] MED LIST changes: -IOHEXOL 180 MG/ML 10 ML VIAL. ONE; -methylPREDNISolone ACETATE 80 MG/ML VIAL. ONE
--- NOTE | 2018-05-14 08:43 | PAIN ---
DATE OF SERVICE: 05/14/2018 DIAGNOSES: 1. Lumbar radiculopathy with lumbar degenerative disk disease. 2. Myofascial pain. 3. Cervical radiculopathy with cervical degenerative disk disease. HISTORY OF PRESENT ILLNESS: The patient is a 52-year-old male who returns for followup status post lumbar epidural steroid injection x 2, 04/28/2018. The patient reports 80% improvement, still doing very well with the low back and left lower extremity. The patient reports he is significantly increasing his activity, distance walking, working abilities, home activities, increasing travel activities with much greater ease and comfort. The patient reports the pain occasionally wakes him at night, also has some pain in the neck, which has responded well to trigger point injections in the past. The patient reports his low back is doing much better. He is very pleased with his progress. Rates his pain at 8 on a scale of 10 at its worst, 6 on average, 6 at its least and is 6 today regarding the neck. The low back, though is about 80% improved, still improved and it has been almost 2-1/2 weeks since his last injection. The patient reports still some pain in the left lower extremity, posterior lateral thigh, lateral anterior thigh, medial thigh, medial lower leg, but again much reduced, significantly improved, although he is beginning to feel it now as it has been almost 3 weeks. The patient reports no new motor or sensory deficits, no new bowel or bladder incontinence or other complaints. The patient reports the pain is constant, stabbing, aching, dull and shooting in the base of the neck, but only some aching and dull low back pain and radiating pain in the left lower extremity is noted. PHYSICAL EXAMINATION: VITAL SIGNS: The patient's blood pressure is 118/74, pulse 77, respirations 18, temperature 98.5 degrees Fahrenheit, height is 6 feet, weight is 232 pounds. GENERAL: The patient is awake, alert, oriented, appropriate, very pleasant demeanor. HEENT: Shows normocephalic, atraumatic. Extraocular movements are intact and symmetrical. Oral cavity: Mucous membranes moist and pink. Dentition is intact. NECK: Shows anterior throat supple without palpable lymphadenopathy noted. Swallow reflex is symmetrical. CHEST: Shows normal with inspection. Breath sounds clear to auscultation bilaterally. HEART: Shows S1, S2 clear. No murmurs auscultated. ABDOMEN: Soft, nontender, nondistended. No palpable organomegaly is noted. No rebound or guarding demonstrated. BACK: Shows spine grossly in the midline. Normal-appearing thoracic kyphosis and cervical lordotic curvature as well as lumbar lordotic curvature. Lumbar paraspinous muscle shows symmetrical on inspection. With palpation shows some moderate tenderness diffusely in the low lumbar distribution more on the left than the right. The patient has good rotational motion of lumbar spine with left as well as extension and flexion. The patient's neck shows posterior cervical musculature with very firm rope-like musculature bilaterally in the middle and inferior aspect of the cervical paraspinous muscles as well as trapezius musculature bilaterally, slightly more on the left than the right and also into the upper thoracic paraspinous musculature, again worse on the left than the right, very firm rope-like musculature consistent with trigger point areas of muscle without specific radiation. The patient shows some slight guarding with extension of the cervical spine with good forward flexion. Right and left lateral rotation past 45 degrees without significant limitation or difficulty. EXTREMITIES: Upper extremities show deep tendon reflexes 2+ in the biceps and triceps tendons. Motor exam is strong with minilab operator strength rated at 5/5 and equal. Lower extremities show deep tendon reflexes 2+ in the patellar, 1+ tendo-calcaneus tendons. Motor exam is strong with 5/5 dorsiflexion and extension. Peripheral pulses are 2+ radial, 1+ posterior tibia. No peripheral edema is noted in the extremities, upper or lower bilaterally. Options were discussed with the patient. The patient's old chart was reviewed as was his current medication regimen updated. Current review of systems updated today as well and we will proceed with trigger point injections of the cervical paraspinous, thoracic paraspinous and trapezius musculature bilaterally. Also we will preauthorize for a third lumbar epidural steroid injection as he still has significant radicular pattern in the L4-L5 distribution in the left lower extremity with radiating pain again significantly improved after the last injection by 80% for about 3 weeks, now returning. We will preauthorize him for that on his next visit. Today, we focused on trigger points of the aforementioned musculature in the cervical paraspinous musculature, thoracic paraspinous musculature and bilateral trapezius musculature. Risks were again discussed including, but not limited to bleeding, infection, possibility of intravascular injection sequelae, spread of local anesthetic and numbness, side effects of steroid medication and poor results regarding pain control. The patient understands and wished to proceed. The patient will return to clinic in approximately 2 weeks and plan on lumbar epidural steroid injection at that time. DIAGNOSES: 1. Myofascial pain. 2. Lumbar degenerative disk disease with lumbar radiculopathy. PROCEDURE: Trigger point injections, bilateral cervical paraspinous musculature, bilateral trapezius musculature, bilateral thoracic paraspinous muscles under sterile prep and drape using local anesthetic. MEDICATION INJECTED: A total of 10 mL of 0.25% bupivacaine and 40 mg total Depo-Medrol after negative aspiration at each injection point. CONDITION AT DISCHARGE: Stable. The patient tolerated the procedure well, had no complications. WAYNE MARTIN MD DR: NI/rebecca JOB#: [id number] / [id number]
== END | disposition home or self-care (01) ==
LOC: PNCL 07:42
PROVIDERS: ATTEND Anesthesiology
DX: M79.18 Myalgia, other site (principal); M51.16 Intervertebral disc disorders with radiculopathy, lumbar region; M50.10 Cervical disc disorder with radiculopathy, unspecified cervical region; Z88.0 Allergy status to penicillin
CPT/HCPCS: 20553; J1030; J3490

== ENCOUNTER 2018-05-21 08:02 | Inpatient (IN) | payer OTHER ==
[~2018-05-21] VITALS: Ht 182.9 cm; Wt 100.8 kg
[~2018-05-21 08:02] MED LIST changes: +AMLO5TAB10 PO; -AMLO5TAB7 PO; -BUPIVACAINE MPF 0.25% 10 ML VIAL. ONE; -PANT40TA3 PO; -PANT40TA5 PO; +PANT40TA77 PO; -TIZA4TAB PO; +TIZA4TAB2 PO; -methylPREDNISolone ACETATE 40 MG/ML VIAL. ONE
--- NOTE | 2018-05-21 08:23 | PHYS DOC ---
Past Medical History Past Medical History: Hypertension Additional Past Medical Histor: high cholesterol, "liver mass", "stress" Past Surgical History: Other Additional Past Surgical Histo: recent colonoscopy, EGD Alcohol Use: Occasionally Drug Use: None Adult General Chief Complaint Chief Complaint: CHEST PAIN HPI HPI Patient is a 52 year old male with history of hypertension, high cholesterol, who presents today complaining of chest pressure. Patient states approximately 1 -1/2 hours ago he was at his office, he states he was sitting down, he states he developed a esqueda of numbness throughout his body bilaterally. He states this esqueda of numbness lasted for a few minutes then stop. He states he continues sitting at his desk then developed a second esqueda of numbness throughout his whole body. He states a few minutes later he developed pressure to the left chest. Patient also states he developed nausea with no vomiting. Patient unable to rate his chest pressure at this point. Patient denies the chest pressure radiating. He states he has not taken anything for his symptoms. Patient also states he developed dizziness during the episodes of chest pressure and numbness. He also states he had tingling to his fingers. PCP Dr. Kishan Troncoso Review of Systems Review of Systems Constitutional: Denies fever or chills [] Eyes: Denies change in visual acuity, redness, or eye pain [] HENT: Denies nasal congestion or sore throat [] Respiratory: Denies cough or shortness of breath [] Cardiovascular: Reports left chest pressure GI: Denies abdominal pain, nausea, vomiting, bloody stools or diarrhea [] : Denies dysuria or hematuria [] Musculoskeletal: Denies back pain or joint pain [] Integument: Denies rash or skin lesions [] Neurologic: Reports numbness. Denies headache, focal weakness or sensory changes [] All other systems were reviewed and found to be within normal limits, except as documented in this note. Current Medications Current Medications Current Medications Medications (Trade) Dose Ordered Sig/Kaylee Start Time Stop Time Status Last Admin Dose Admin Aspirin (Polly Aspirin) 325 mg 1X ONCE 05/21/18 08:30 05/21/18 08:31 DC 05/21/18 08:36 325 MG Morphine Sulfate (Morphine Sulfate) 2 mg 1X ONCE 05/21/18 08:45 05/21/18 08:46 DC 05/21/18 09:04 2 MG Ondansetron HCl (Zofran) 4 mg 1X ONCE 05/21/18 09:15 05/21/18 09:16 DC 05/21/18 09:13 4 MG Allergies Allergies Allergies Coded Allergies Type Severity Reaction Last Updated Verified Penicillins Allergy Severe lip swelling,rash 04/10/17 Yes Physical Exam Physical Exam Constitutional: Well developed, well nourished, no acute distress, non-toxic appearance. [] HENT: Normocephalic, atraumatic, bilateral external ears normal, oropharynx moist, no oral exudates, nose normal. [] Eyes: PERRLA, EOMI, conjunctiva normal, no discharge. [] Neck: Normal range of motion, no tenderness, supple, no stridor. [] Cardiovascular:Heart rate regular rhythm, no murmur [] Lungs & Thorax: Bilateral breath sounds clear to auscultation [] Abdomen: Bowel sounds normal, soft, no tenderness, no masses, no pulsatile masses. [] Skin: Warm, dry, no erythema, no rash. [] Back: No tenderness, no CVA tenderness. [] Extremities: No tenderness, no cyanosis, no clubbing, ROM intact, no edema. [] Neurologic: Alert and oriented X 3, normal motor function, normal sensory function, no focal deficits noted. Cranial nerves II through XII intact Psychologic: appears anxious Current Patient Data Vital Signs Vital Signs Date Time Temp Pulse Resp B/P (MAP) Pulse Ox O2 Delivery O2 Flow Rate FiO2 05/21/18 09:04 20 98 05/21/18 08:20 98.2 78 156/78 (104) Room Air 98.2 Lab Values Laboratory Tests Test 05/21/18 08:15 05/21/18 09:00 White Blood Count 9.8 x10^3/uL (4.0-11.0) Red Blood Count 4.95 x10^6/uL (4.30-5.70) Hemoglobin 16.0 g/dL (13.0-17.5) Hematocrit 45.7 % (39.0-53.0) Mean Corpuscular Volume 92 fL (79-100) Mean Corpuscular Hemoglobin 32 pg (25-35) Mean Corpuscular Hemoglobin Concent 35 g/dL (31-37) Red Cell Distribution Width 13.6 % (11.5-14.5) Platelet Count 271 x10^3/uL (140-400) Neutrophils (%) (Auto) 75 % (31-73) H Lymphocytes (%) (Auto) 18 % (24-48) L Monocytes (%) (Auto) 5 % (0-9) Eosinophils (%) (Auto) 1 % (0-3) Basophils (%) (Auto) 1 % (0-3) Neutrophils # (Auto) 7.4 x10^3uL (1.8-7.7) Lymphocytes # (Auto) 1.8 x10^3/uL (1.0-4.8) Monocytes # (Auto) 0.5 x10^3/uL (0.0-1.1) Eosinophils # (Auto) 0.1 x10^3/uL (0.0-0.7) Basophils # (Auto) 0.0 x10^3/uL (0.0-0.2) Sodium Level 138 mmol/L (136-145) Potassium Level 3.6 mmol/L (3.5-5.1) Chloride Level 99 mmol/L (98-107) Carbon Dioxide Level 30 mmol/L (21-32) Anion Gap 9 (6-14) Blood Urea Nitrogen 11 mg/dL (8-26) Creatinine 0.8 mg/dL (0.7-1.3) Estimated GFR (Cockcroft-Gault) 102.3 BUN/Creatinine Ratio 14 (6-20) Glucose Level 95 mg/dL (70-99) Calcium Level 9.6 mg/dL (8.5-10.1) Magnesium Level 1.9 mg/dL (1.8-2.4) Total Bilirubin 0.6 mg/dL (0.2-1.0) Aspartate Amino Transferase (AST) 20 U/L (15-37) Alanine Aminotransferase (ALT) 35 U/L (16-63) Alkaline Phosphatase 157 U/L (46-116) H Troponin I Quantitative < 0.017 ng/mL (0.000-0.055) LG-Bmg-K-Type Natriuretic Peptide 20 pg/mL (0-124) Total Protein 8.0 g/dL (6.4-8.2) Albumin 3.6 g/dL (3.4-5.0) Albumin/Globulin Ratio 0.8 (1.0-1.7) L Lipase 172 U/L (73-393) Thyroid Stimulating Hormone (TSH) 0.815 uIU/mL (0.358-3.74) Urine Collection Type Unknown Urine Color Yellow Urine Clarity Clear Urine pH 6.0 Urine Specific [place] 1.010 Urine Protein Negative mg/dL (NEG-TRACE) Urine Glucose (UA) Negative mg/dL (NEG) Urine Ketones (Stick) Negative mg/dL (NEG) Urine Blood Negative (NEG) Urine Nitrite Negative (NEG) Urine Bilirubin Negative (NEG) Urine Urobilinogen Dipstick 0.2 mg/dL (0.2 mg/dL) Urine Leukocyte Esterase Negative (NEG) Urine RBC Rare /HPF (0-2) Urine WBC Rare /HPF (0-4) Urine Squamous Epithelial Cells Occ /LPF Urine Bacteria Few /HPF (0-FEW) Urine Opiates Screen Neg (NEG) Urine Methadone Screen Neg (NEG) Urine Barbiturates Neg (NEG) Urine Phencyclidine Screen Neg (NEG) Urine Amphetamine/Methamphetamine Neg (NEG) Urine Benzodiazepines Screen Neg (NEG) Urine Cocaine Screen Neg (NEG) Urine Cannabinoids Screen Neg (NEG) Urine Ethyl Alcohol Neg (NEG) Laboratory Tests 05/21/18 08:15 Laboratory Tests 05/21/18 08:15 EKG EKG Interpreted by Dr. Charles sinus rhythm HR 73 no STEMI[] Radiology/Procedures Radiology/Procedures []PROCEDURE: PORTABLE CHEST 1V EXAM: CHEST 1 VIEW History: Left-sided chest pain, chest pressure COMPARISON: 04/10/2016 TECHNIQUE: Single portable radiograph of the chest FINDINGS: The cardiac silhouette is unremarkable. The lungs are clear bilaterally. The costophrenic sulci are clear and well demarcated. IMPRESSION: No radiographic evidence of an acute cardiopulmonary process. Electronically signed by: Tera Richey MD (05/21/2018 8:36 AM) [facility] DICTATED and SIGNED BY: TERA RICHEY MD DATE: 05/21/18 0835 Course & Med Decision Making Course & Med Decision Making Pertinent Labs and Imaging studies reviewed. (See chart for details) This is a 52-year-old male patient presented to the ED today with multiple complaints including numbness, tingling, and chest pressure that occurred right coming to the ED. See history of present illness. Heart score assuming negative 2. Patient's EKG, labs, CT of the head, chest x-ray, and negative for any acute findings. He was given aspirin on arrival to the ED, also given morphine, he seems anxious but denies any history of anxiety. He keeps stating the more he thinks about his symptoms the mother get worse. Consulted with Dr. Troncsoo who accepted patient for admission, Routine cardiology consult placed. Dragon Disclaimer Dragon Disclaimer This electronic medical record was generated, in whole or in part, using a voice recognition dictation system. Departure Departure Impression: Primary Impression: Chest pain Additional Impressions: Numbness and tingling in both hands Numbness and tingling of foot Anxiety Disposition: ADMITTED INPATIENT Condition: STABLE Referrals: ANDREI VILLANUEVA PA-C (PCP) Problem Qualifiers Primary Impression: Chest pain Chest pain type: unspecified Qualified Codes: R07.9 - Chest pain, unspecified GABRIELAKODYCARMEN BRANNON May 21, 2018 08:23
[2018-05-21 08:30] LABS: BASO % 1 % (0-3); EOS # 0.1 x10^3/uL (0.0-0.7); EOS % 1 % (0-3); HEMATOCRIT 45.7 % (39.0-53.0); LYMPH # 1.8 x10^3/uL (1.0-4.8); LYMPH % 18 % (24-48); MEAN CORPUSCULAR HEMOGLOBIN 32 pg (25-35); MEAN CORPUSCULAR HGB CONC 35 g/dL (31-37); MEAN CORPUSCULAR VOLUME 92 fL (79-100); MONO # 0.5 x10^3/uL (0.0-1.1); MONO % 5 % (0-9); NEUT # 7.4 x10^3uL (1.8-7.7); NEUT % 75 % (31-73); PLATELET COUNT 271 x10^3/uL (140-400); RED BLOOD COUNT 4.95 x10^6/uL (4.30-5.70); RED CELL DISTRIBUTION WIDTH 13.6 % (11.5-14.5); WHITE BLOOD COUNT 9.8 x10^3/uL (4.0-11.0)
[2018-05-21] MEDS ORDERED: ASPIRIN 325 MG TABLET PO ONE (08:30)
--- NOTE | 2018-05-21 08:40 | RAD ---
EXAM: CHEST 1 VIEW History: Left-sided chest pain, chest pressure COMPARISON: 04/10/2016 TECHNIQUE: Single portable radiograph of the chest FINDINGS: The cardiac silhouette is unremarkable. The lungs are clear bilaterally. The costophrenic sulci are clear and well demarcated. IMPRESSION: No radiographic evidence of an acute cardiopulmonary process. Electronically signed by: Tera Richey MD (05/21/2018 8:36 AM) [facility]
[2018-05-21] MEDS ORDERED: MORPHINE SULFATE 2 MG/ML VIAL. IV ONE (08:45)
[2018-05-21 08:52] LABS: CALCIUM 9.6 mg/dL (8.5-10.1); CREATININE 0.8 mg/dL (0.7-1.3); GFR 102.3; POTASSIUM 3.6 mmol/L (3.5-5.1)
[2018-05-21 08:57] LABS: ALBUMIN 3.6 g/dL (3.4-5.0); ALBUMIN/GLOBULIN RATIO 0.8 (1.0-1.7); MAGNESIUM 1.9 mg/dL (1.8-2.4); TOTAL BILIRUBIN 0.6 mg/dL (0.2-1.0)
[2018-05-21] MEDS ORDERED: ONDANSETRON PF 4 MG/2 ML VIAL. IV ONE (09:15)
[2018-05-21 09:24] LABS: BILIRUBIN,URINE NEGATIVE (NEG); CLARITY,URINE CLEAR; COLOR,URINE YELLOW; NITRITE,URINE NEGATIVE (NEG); PROTEIN,URINE NEGATIVE (NEG-TRACE); UROBILINOGEN,URINE 0.2 mg/dL (0.2 mg/dL)
[2018-05-21 09:39] LABS: BACTERIA,URINE FEW /HPF (0-FEW); BARBITURATES NEG (NEG); BENZODIAZEPINES NEG (NEG); CANNABINOIDS NEG (NEG); COCAINE NEG (NEG); METHADONE NEG (NEG); OPIATES NEG (NEG); PHENCYCLIDINE NEG (NEG); RBC,URINE RARE /HPF (0-2); SQUAMOUS EPITHELIAL CELL,UR OCC /LPF; WBC,URINE RARE /HPF (0-4)
[2018-05-21 09:40] LABS: AMPHETAMINE/METHAMPHETAMINE NEG (NEG)
--- NOTE | 2018-05-21 10:07 | EKG ---
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
--- NOTE | 2018-05-21 11:28 | RAD ---
PQRS Compliance Statement: One or more of the following individualized dose reduction techniques were utilized for this examination: 1. Automated exposure control 2. Adjustment of the mA and/or kV according to patient size 3. Use of iterative reconstruction technique CT HEAD WITHOUT CONTRAST History: numbness tingling to arms/hands Comparison: MR brain with and without contrast April 10, 2017. Procedure: Axial images are obtained of the head from the skull base through the vertex without IV contrast. Findings: The ventricles and sulci are normal for the patient's age. No mass-effect, midline shift, hemorrhage, extra-axial fluid collection, or obvious acute infarction is identified. Basilar cisterns are patent. Bone windows demonstrate no acute calvarial abnormality. Mucosal thickening of the right sphenoid sinus. No air-fluid level. The other visualized paranasal sinuses are clear. Mastoid air cells are well aerated. IMPRESSION: No acute intracranial abnormality. Electronically signed by: Mariano Lou MD (05/21/2018 9:06 AM) [id number] [id number]
[2018-05-21] MEDS: ONDANSETRON PF 4 MG/2 ML VIAL. IV PRN ×2 (12:16→20:02)
[2018-05-21] MEDS: NITROGLYCERIN SUBLINGUAL 0.4 MG BOTTLE OF 25. SL PRN ×2 (12:17→16:50)
[2018-05-21] MEDS: MORPHINE SULFATE 4 MG/ML VIAL. IV PRN ×5 (12:17→23:57)
[2018-05-21 12:30] VITALS: BP 119/66
--- NOTE | 2018-05-21 12:50 | NUR ---
The patient, AMBREEN ABDULLAHI, 52 y/o, M admitted by JOHN BARAJAS MD, was given written information regarding hospital policies, unit procedures and contact persons. Valuables were checked and noted. Patient arrived to room 204 at 1250. Pt A&OX4. VSS. Rates chest pain 4/10. Describes pain as burning. Still has numbness & tingling in bilateral arms & legs. Will continue to monitor.
--- NOTE | 2018-05-21 13:55 | PDOC2 ---
KAPIL MOLINA MSWS 05/21/18 1355: CARDIAC CONSULT DATE OF CONSULT Date of Consult DATE: 05/21/18 TIME: 13:22 REASON FOR CONSULT Reason for Consult: Chest pain REFERRING PHYSICIAN Referring Physician: Darvin SOURCE Source: Chart review, Patient HISTORY OF PRESENT ILLNESS HISTORY OF PRESENT ILLNESS This is a pleasant 52 yo male admitted for complains of multiple complains. Pt has HNP to cervical and lumbar region. He had epidural shots to his neck 2 weeks ago and lower back 3 weeks ago. He has not been having any issues with this. No exertional CP nor BOJORQUEZ. Today at work. He had head flushed feeling then he had tunneling vision then her felt dizzy and had retrosternal dull pain then he felt that flushed sensation and numbness to his bilateral arms and tingling to his fingertips then from his hips to his feet with the same sensation. He has been having multipel short episodes since then and as far as his dizzy spell it only lasted about 2 minutes. He also had some nausea at that time and felt panic like he could not breath well. Presently he is asymptomatic. No prior CAD and he had significant cardiac workup not too long ago as noted below including cardiac cath, holter. He also has GERD with past dysphagia. No recent falls or injury. No recent infection. PAST MEDICAL HISTORY Past Medical History Cardiovascular: HTN, Hyperlipidemia Pulmonary: No pertinent hx CENTRAL NERVOUS SYSTEM: Carpal Tunnel Syndrome GI: GERD, dysphagia, hemorrhoids Heme/Onc: No pertinent hx Hepatobiliary: liver lesion Psych: No pertinent hx Musculoskeletal: OA, HNP to cervical and lumbar Rheumatologic: No pertinent hx Infectious disease: No pertinent hx Renal/: No pertinent hx Endocrine: No pertinent hx PAST SURGICAL HISTORY Past Surgical History: Arthroscopy (right ankle), Cholecystectomy, Hernia Repair (umbilical and left inguinal) FAMILY HISTORY Family History: Coronary Artery Disease SOCIAL HISTORY Social History No (does chew 2 can of tobacco every 7-10 days) ALCOHOL: occasionally Drugs: None Lives: with Family CURRENT MEDICATIONS CURRENT MEDICATIONS Current Medications Medications (Trade) Dose Ordered Sig/Kaylee Route PRN Reason Start Time Stop Time Status Last Admin Dose Admin Aspirin (Polly Aspirin) 325 mg 1X ONCE PO 05/21/18 08:30 05/21/18 08:31 DC 05/21/18 08:36 Morphine Sulfate (Morphine Sulfate) 2 mg 1X ONCE IV 05/21/18 08:45 05/21/18 08:46 DC 05/21/18 09:04 Ondansetron HCl (Zofran) 4 mg 1X ONCE IV 05/21/18 09:15 05/21/18 09:16 DC 05/21/18 09:13 Ondansetron HCl (Zofran) 4 mg PRN Q8HRS PRN IV NAUSEA/VOMITING 05/21/18 12:00 05/22/18 11:59 05/21/18 12:16 Morphine Sulfate (Morphine Sulfate) 4 mg PRN Q2HR PRN IV PAIN 05/21/18 12:00 05/22/18 11:59 05/21/18 12:17 Nitroglycerin (Nitrostat) 0.4 mg PRN Q5MIN PRN SL CHEST PAIN 05/21/18 12:00 05/22/18 11:59 05/21/18 12:17 ALLERGIES ALLERGIES: Coded Allergies: Penicillins (Verified Allergy, Severe, lip swelling,rash, 04/10/17) ROS Review of System 14 point ROS evaluated with pertinent positives noted per HPI PHYSICAL EXAM General: Alert, Oriented X3, Cooperative, No acute distress HEENT: Atraumatic, Mucous membr. moist/pink Lungs: Clear to auscultation, Normal air movement Heart: Regular rate (SR), Normal S1, Normal S2, Other (2/6 systolic murmur to LLS border) Abdomen: Soft, No tenderness Extremities: No cyanosis, No edema Skin: No breakdown, No significant lesion Neuro: Normal speech, Sensation intact Psych/Mental Status: Mental status NL, Mood NL MUSCULOSKELETAL: Osteoarthritic changes both hands VITALS VITALS Vital Signs Date Time Temp Pulse Resp B/P (MAP) Pulse Ox O2 Delivery O2 Flow Rate FiO2 05/21/18 12:17 80 106/68 05/21/18 12:17 18 98 Room Air 05/21/18 08:20 98.2 98.2 LABS Lab: Laboratory Tests Test 05/21/18 08:15 05/21/18 09:00 05/21/18 12:14 White Blood Count 9.8 x10^3/uL (4.0-11.0) Red Blood Count 4.95 x10^6/uL (4.30-5.70) Hemoglobin 16.0 g/dL (13.0-17.5) Hematocrit 45.7 % (39.0-53.0) Mean Corpuscular Volume 92 fL (79-100) Mean Corpuscular Hemoglobin 32 pg (25-35) Mean Corpuscular Hemoglobin Concent 35 g/dL (31-37) Red Cell Distribution Width 13.6 % (11.5-14.5) Platelet Count 271 x10^3/uL (140-400) Neutrophils (%) (Auto) 75 % (31-73) Lymphocytes (%) (Auto) 18 % (24-48) Monocytes (%) (Auto) 5 % (0-9) Eosinophils (%) (Auto) 1 % (0-3) Basophils (%) (Auto) 1 % (0-3) Neutrophils # (Auto) 7.4 x10^3uL (1.8-7.7) Lymphocytes # (Auto) 1.8 x10^3/uL (1.0-4.8) Monocytes # (Auto) 0.5 x10^3/uL (0.0-1.1) Eosinophils # (Auto) 0.1 x10^3/uL (0.0-0.7) Basophils # (Auto) 0.0 x10^3/uL (0.0-0.2) Sodium Level 138 mmol/L (136-145) Potassium Level 3.6 mmol/L (3.5-5.1) Chloride Level 99 mmol/L (98-107) Carbon Dioxide Level 30 mmol/L (21-32) Anion Gap 9 (6-14) Blood Urea Nitrogen 11 mg/dL (8-26) Creatinine 0.8 mg/dL (0.7-1.3) Estimated GFR (Cockcroft-Gault) 102.3 BUN/Creatinine Ratio 14 (6-20) Glucose Level 95 mg/dL (70-99) Calcium Level 9.6 mg/dL (8.5-10.1) Magnesium Level 1.9 mg/dL (1.8-2.4) Total Bilirubin 0.6 mg/dL (0.2-1.0) Aspartate Amino Transf (AST/SGOT) 20 U/L (15-37) Alanine Aminotransferase (ALT/SGPT) 35 U/L (16-63) Alkaline Phosphatase 157 U/L (46-116) Troponin I Quantitative < 0.017 ng/mL (0.000-0.055) < 0.017 ng/mL (0.000-0.055) EY-Tzl-H-Type Natriuretic Peptide 20 pg/mL (0-124) Total Protein 8.0 g/dL (6.4-8.2) Albumin 3.6 g/dL (3.4-5.0) Albumin/Globulin Ratio 0.8 (1.0-1.7) Lipase 172 U/L (73-393) Thyroid Stimulating Hormone (TSH) 0.815 uIU/mL (0.358-3.74) Urine Collection Type Unknown Urine Color Yellow Urine Clarity Clear Urine pH 6.0 Urine Specific [place] 1.010 Urine Protein Negative mg/dL (NEG-TRACE) Urine Glucose (UA) Negative mg/dL (NEG) Urine Ketones (Stick) Negative mg/dL (NEG) Urine Blood Negative (NEG) Urine Nitrite Negative (NEG) Urine Bilirubin Negative (NEG) Urine Urobilinogen Dipstick 0.2 mg/dL (0.2 mg/dL) Urine Leukocyte Esterase Negative (NEG) Urine RBC Rare /HPF (0-2) Urine WBC Rare /HPF (0-4) Urine Squamous Epithelial Cells Occ /LPF Urine Bacteria Few /HPF (0-FEW) Urine Opiates Screen Neg (NEG) Urine Methadone Screen Neg (NEG) Urine Barbiturates Neg (NEG) Urine Phencyclidine Screen Neg (NEG) Urine Amphetamine/Methamphetamine Neg (NEG) Urine Benzodiazepines Screen Neg (NEG) Urine Cocaine Screen Neg (NEG) Urine Cannabinoids Screen Neg (NEG) Urine Ethyl Alcohol Neg (NEG) EKG EKG Interpretive Statements Holter FEW PAC'S, OTHERWISE NORMAL MONITORING. NORMAL HEART RATE RANGE. NO SYMPTOMS REPORTED DATE: 04/10/16 1246 ECHOCARDIOGRAM ECHOCARDIOGRAM <Conclusion> The left ventricular systolic function is normal and the ejection fraction is within normal range. The Ejection Fraction is 55-60%. There is normal LV segmental wall motion. The left ventricular diastolic function and filling is normal for age. No significant valvular disease. DATE: 01/08/16 1339 HEART CATH HEART CATH Findings: Coronaries: The left main is normal. The LAD is normal. The circumflex is normal. The RCA is a large dominant vessel that was normal. Ventriculogram the left ventricle is normal in size there seems to be some concentric left ventricular hypertrophy and the global ejection fraction was estimated to be about 70%. There was no gradient across the aortic valve and the left ventricular end- diastolic pressure was 22. Impression: This patient does not appear to have any significant coronary artery disease therefore I doubt that his symptoms are angina. The patient's palpitations still need further evaluation and the Holter monitor that was done is pending. Depending on the results of the Holter will then have further recommendations. DATE: 04/12/16 3564 ASSESSMENT/PLAN ASSESSMENT/PLAN 1. Atypical CP: doubt ACS, likely MSK/neuropathic. Trops nml EKG NSR. 2. HTN: controlled 3. HLP 4. Obesity 5. Presyncope: vasovagal 6. Possible cervical/lumbar radiculopathy: home modafinil contributing? 7. anxiety 8. Hx of dysphagia with nonerosive gastritis/Schatzki ring via EGD 04/2017 Recommendations 1. Continue home BP regimen 2. Consult neurology 3. TTE ARUN DUPONT MD 05/21/18 1440: CARDIAC CONSULT ASSESSMENT/PLAN ASSESSMENT/PLAN Patient seen and examined. Agree with RELISH MAKER's assessment and plan. Chest pain with atypical features and most probably musculoskeletal. Myocardial infarction has been ruled out. Near syncope appears to be vasovagal. Check 2-D echo to assess LV systolic function and rule out structural abnormalities. Ischemic workup could be considered as an outpatient. Thank you for your consultation. KAPIL MOLINA APRN May 21, 2018 13:55 ARUN DUPONT MD May 21, 2018 14:40
[2018-05-21] MEDS ORDERED: PERFLUTREN PROTEIN-A MICROSPHR 0.22 MG/ML 3 ML VIAL. IV ONE ×2 (14:56→15:00)
[2018-05-21] MEDS ORDERED: PERFLUTREN PROTEIN-A MICROSPHR 0.22 MG/ML 3 ML VIAL. IV PRN (15:15)
--- NOTE | 2018-05-21 15:15 | NUR ---
SS following for discharge planning. SS reviewed pt chart. Pt is from home and currently on room air. No discharge needs noted at this time. SS will continue to follow for pending discharge needs.
[2018-05-21 15:30] VITALS: BP 126/70
--- NOTE | 2018-05-21 15:32 | CARD ---
MR#: [id number] Date of Study: 05/21/2018 Ordering Physician: KAPIL MOLINA, Referring Physician: JOHN BARAJAS Tech: Grecia Eduardo RDCS APPROVED REPORT EXAM: Two-dimensional echocardiogram with contrast. Other Information Quality : AverageHR: 62bpm Rhythm : NSR INDICATION Presyncope Echo Enhancing Agent Indication: Endocardial border delineation Agent/Amount Used: Optison 1mL 2D DIMENSIONS RVDd3.4 (2.9-3.5cm)Left Atrium(2D)3.8 (1.6-4.0cm) IVSd1.4 (0.7-1.1cm)Aortic Root(2D)3.6 (2.0-3.7cm) LVDd4.8 (3.9-5.9cm)PWd1.2 (0.7-1.1cm) LVDs3.4 (2.5-4.0cm)FS (%) 28.2 % SV57.6 mlLVEF(%)54.5 (>50%) M-Mode DIMENSIONS Left Atrium(MM)3.63 (2.5-4.0cm)Aortic Root3.32 (2.2-3.7cm) Aortic Valve AoV Peak Gerald.118.6cm/sAoV VTI21.6cm AO Peak GR.5.6mmHgLVOT Peak Gerald.106.0cm/s AO Mean GR.3mmHgAVA (VTI)2.60cm2 Mitral Valve MV E Trgfzodc07.2cm/sMV DECEL CLOL255gt MV A Afmzwncv43.6cm/sE/A Ratio0.9 MV A Plqqkxdv277zd Pulmonary Valve PV Peak Vavocpwr66.5cm/s Tricuspid Valve TR P. Kqsweosz461vh/sRAP NOESWKKD3sfSn TR Peak Gr.89ffFuEBUC01jfVe LEFT VENTRICLE The left ventricle is normal size. There is mild concentric left ventricular hypertrophy. The left ve ntricular systolic function is normal. The Ejection Fraction is 55-60%. Septal motion consistent with conduction abnormality. RIGHT VENTRICLE The right ventricle is normal size. There is normal right ventricular wall thickness. The right ventr icular systolic function is normal. ATRIA The left atrium size is normal. The right atrium size is normal. The interatrial septum is intact wit h no evidence for an atrial septal defect or patent foramen ovale as noted on 2-D or Doppler imaging. AORTIC VALVE The aortic valve is thickened but opens well. The aortic valve is trileaflet. Doppler and Color Flow revealed no significant aortic regurgitation. There is no significant aortic valvular stenosis. MITRAL VALVE The mitral valve is normal in structure and function. There is no evidence of mitral valve prolapse. There is no mitral valve stenosis. Doppler and Color Flow revealed no mitral valve regurgitation note d. TRICUSPID VALVE The tricuspid valve is normal in structure and function. Doppler and Color Flow revealed trace tricus pid regurgitation. The PA pressure was estimated at 25 mmHg. There is no tricuspid valve prolapse or vegetation. There is no tricuspid valve stenosis. PULMONIC VALVE The pulmonary valve is normal in structure and function. Doppler and Color Flow revealed no pulmonic valvular regurgitation. There is no pulmonic valvular stenosis. GREAT VESSELS The aortic root is mildly enlarged. The ascending aorta is normal in size. The IVC is normal in size and collapses >50% with inspiration. PERICARDIAL EFFUSION There is no evidence of significant pericardial effusion. Critical Notification Critical Value: No <Conclusion> The left ventricular systolic function is normal. The Ejection Fraction is 55-60%. Trace tricuspid regurgitation. The PA pressure was estimated at 25 mmHg. There is no evidence of significant pericardial effusion. Signed by : Zack Mcallister, Electronically Approved : 05/21/2018 15:30:43
--- NOTE | 2018-05-21 17:39 | NUR ---
All consults have been notified & Dr. Troncoso.
[2018-05-21 19:20] VITALS: BP 121/70
--- NOTE | 2018-05-21 19:38 | PDOC2 ---
NEUROLOGY CONSULT Date of Admission Date of Admission DATE: 05/21/18 TIME: 19:25 Reason for Consult Reason for Consult: Recurrent abnormal sensory symptoms as electric currents on 05/21/18. Numbness and tingling in UE and LE. Chest pain. DM HTN HLD GERD. Schatzki ring, s/p dilatation. Over weight. RECOMMENDATIONS/PLAN: Brain MRI w/wo contrast. Carotid A US + Doppler. Lab: see orders including fasting lipids ASA 325 mg daily. Neurontin 100 mg tid. Treat medical diseases. HISTORY OF THE PRESENT ILLNESS: 52-y-old male patient with above medical diseases has been having symptoms of suddenly feeling warm, head expansion, blurred vision, tunnel vision , electric current from head to toe, tremulous, chest pain, palpation, numbness , tingling and weakness lasting for several seconds exch time about 6 times on , so he came to the ER of [facility] for further evaluation. He stated he still has persistent numbness and tingling since this morning, but other symptoms have not returned so far.He denied emotional stress except his co-worker had a seizure in his office recently. MS not likely. Past Medical History Cardiovascular: HTN, Hyperlipidemia Pulmonary: No pertinent hx CENTRAL NERVOUS SYSTEM: Carpal Tunnel Syndrome GI: GERD Heme/Onc: No pertinent hx Hepatobiliary: Other Psych: No pertinent hx Musculoskeletal: No pain Rheumatologic: No pertinent hx Infectious disease: No pertinent hx Renal/: No pertinent hx Endocrine: No pertinent hx Past Surgical History Cholecystectomy Family History Cancer Coronary Artery Disease Social History No (does chew 2 can of tobacco every 7-10 days) ALCOHOL: occassionally Drugs: None Lives: with Family ALLERGY: PCN MEDICATIONS: Refer to [facility] REVIEW OF SYSTEMS: Constitutional: No malnutrition, weight loss, cachexia. Head: No recent traumatic brain or head injury. Skin: No edema, or rash. Ear: No infection. Eyes: No vision loss or color blindness. Nose: No bleeding or purulent discharges. Hearing: No hearing decrease. Neck: No injury. Cardiac: HTN, HLD. Pulmonary: No COPD. GI: Dysphagia. Urinary/genital: No dysuria, incontinence, urinary retention. Endocrinologic: Diabetes Mellitus? Skeletomuscular: No muscular atrophy, deformity. Neurological: see . Psychiatric: Denies drug use/abuse. Otherwise, not [id number] review of systems. PHYSICAL EXAMINATION: General appearance is in subacute distress. HEENT: Normocephalic and nontraumatic. Eyes, nose, ears, and throat are unremarkable. Neck is supple. No lymphadenopathy. No bruits are heard over the carotid artery. No crepitus. Cardiovascular: S1, S2, regular rate and rhythm. Pulmonary: Clear to auscultation bilaterally. Abdomen: Bowel sounds are positive. Abdomen is soft, nontender, and nondistended. Extremities: No rash, lesions, or edema. No restriction of range of motion NEUROLOGICAL EXAMINATION: Alert Oriented to time, place and person. PERRL. EOMI. CN: no focal findings. Muscle tone: within normal. Muscle strength: 5 DTR: 2 Plantar reflex: Flexor response bilaterally Gait: not examined in bed. Sensory exam: no acute abnormal findings. No cerebellar signs elicited. F-T-N test accurate. Current Medications Current Medications Current Medications Aspirin (Polly Aspirin) 325 mg 1X ONCE PO Last administered on 05/21/18at 08:36 ; Start 05/21/18 at 08:30; Stop 05/21/18 at 08:31; Status DC Morphine Sulfate (Morphine Sulfate) 2 mg 1X ONCE IV Last administered on at 09:04; Start 05/21/18 at 08:45; Stop 05/21/18 at 08:46; Status DC Ondansetron HCl (Zofran) 4 mg 1X ONCE IV Last administered on 05/21/18at 09:13 ; Start 05/21/18 at 09:15; Stop 05/21/18 at 09:16; Status DC Ondansetron HCl (Zofran) 4 mg PRN Q8HRS PRN IV NAUSEA/VOMITING Last administered on 05/21/18at 12:16; Start 05/21/18 at 12:00; Stop 05/22/18 at 11:59 Morphine Sulfate (Morphine Sulfate) 4 mg PRN Q2HR PRN IV PAIN Last administered on 05/21/18at 19:04; Start 05/21/18 at 12:00; Stop 05/22/18 at 11:59 Nitroglycerin (Nitrostat) 0.4 mg PRN Q5MIN PRN SL CHEST PAIN Last administered on 05/21/18at 16:50; Start 05/21/18 at 12:00; Stop 05/22/18 at 11:59 Perflutren Protein Type A Microsphe (Optison) 0.66 mg STK-MED ONCE IV ; Start at 14:56; Stop 05/21/18 at 14:58; Status DC Perflutren Protein Type A Microsphe (Optison) 0.66 mg PRN 1X PRN IV SEE COMMENTS; Start 05/21/18 at 15:15; Stop 05/22/18 at 15:14 Atenolol (Tenormin) 25 mg DAILY PO ; Start 05/22/18 at 09:00 Non-Formulary Medication (Losartan/ Hydrochlorothiazide (Losartan-Hctz 50-12.5 Mg Tab)) 1 tab DAILY PO ; Start 05/22/18 at 09:00; Status UNV Pantoprazole Sodium (Protonix) 40 mg DAILYAC PO ; Start 05/22/18 at 07:30 Losartan Potassium (Cozaar) 50 mg DAILY PO ; Start 05/22/18 at 09:00 Hydrochlorothiazide (Microzide) 12.5 mg DAILY PO ; Start 05/22/18 at 09:00 Active Scripts Active Atenolol 25 Mg Tablet 1 Tab PO DAILY Reported Modafinil 100 Mg Tablet 200 Mg PO DAILY Protonix (Pantoprazole Sodium) 20 Mg Tablet.dr 40 Mg PO DAILY Losartan-Hctz 50-12.5 Mg Tab (Losartan/Hydrochlorothiazide) 1 Each Tablet 1 Tab PO DAILY Doxazosin Mesylate 2 Mg Tablet 1 Tab PO DAILY Allergies Allergies: Allergies Coded Allergies Type Severity Reaction Last Updated Verified Penicillins Allergy Severe lip swelling,rash 04/10/17 Yes ROS Review of System The patient denies any associated fevers, chills, headache, ear pain, rhinorrhea , sore throat, stiff neck, productive cough, chest pain, shortness of breath, back or flank pain, abdominal pain, nausea, vomiting, diarrhea, constipation, dysuria, rash, numbness, weakness, tingling, incontinence, difficulty ambulating, or diaphoresis. Physical Exam Physical Exam General: Well developed, well nourished, no acute distress, well appearing HEENT: Pupils equally round and reactive to light, EOMI, no discharge, normal conjunctiva Neck: Supple, no nuchal rigidity, no JVD, trachea midline, no tenderness Cardiac: RRR, no murmurs, no gallops, no rubs Chest/Lungs: CTAB, no wheeze, no rhonchi, no crackles Abdomen: soft, non-distended, no guarding, no peritoneal signs, non-tender Back: No tenderness Extremities: no edema, pulses intact, non-tender,capillary refill <3 sec bilateral upper and lower extremities, Neuro: Alert and oriented x 4, no focal deficits, normal speech Vitals Vitals: Vital Signs Date Time Temp Pulse Resp B/P (MAP) Pulse Ox O2 Delivery O2 Flow Rate FiO2 05/21/18 19:04 Room Air 05/21/18 16:50 59 118/73 05/21/18 15:30 98.2 20 96 98.2 Labs Labs Laboratory Tests Test 05/21/18 08:15 05/21/18 09:00 05/21/18 12:14 05/21/18 16:20 White Blood Count 9.8 x10^3/uL (4.0-11.0) Red Blood Count 4.95 x10^6/uL (4.30-5.70) Hemoglobin 16.0 g/dL (13.0-17.5) Hematocrit 45.7 % (39.0-53.0) Mean Corpuscular Volume 92 fL (79-100) Mean Corpuscular Hemoglobin 32 pg (25-35) Mean Corpuscular Hemoglobin Concent 35 g/dL (31-37) Red Cell Distribution Width 13.6 % (11.5-14.5) Platelet Count 271 x10^3/uL (140-400) Neutrophils (%) (Auto) 75 % (31-73) Lymphocytes (%) (Auto) 18 % (24-48) Monocytes (%) (Auto) 5 % (0-9) Eosinophils (%) (Auto) 1 % (0-3) Basophils (%) (Auto) 1 % (0-3) Neutrophils # (Auto) 7.4 x10^3uL (1.8-7.7) Lymphocytes # (Auto) 1.8 x10^3/uL (1.0-4.8) Monocytes # (Auto) 0.5 x10^3/uL (0.0-1.1) Eosinophils # (Auto) 0.1 x10^3/uL (0.0-0.7) Basophils # (Auto) 0.0 x10^3/uL (0.0-0.2) Sodium Level 138 mmol/L (136-145) Potassium Level 3.6 mmol/L (3.5-5.1) Chloride Level 99 mmol/L (98-107) Carbon Dioxide Level 30 mmol/L (21-32) Anion Gap 9 (6-14) Blood Urea Nitrogen 11 mg/dL (8-26) Creatinine 0.8 mg/dL (0.7-1.3) Estimated GFR (Cockcroft-Gault) 102.3 BUN/Creatinine Ratio 14 (6-20) Glucose Level 95 mg/dL (70-99) Calcium Level 9.6 mg/dL (8.5-10.1) Magnesium Level 1.9 mg/dL (1.8-2.4) Total Bilirubin 0.6 mg/dL (0.2-1.0) Aspartate Amino Transf (AST/SGOT) 20 U/L (15-37) Alanine Aminotransferase (ALT/SGPT) 35 U/L (16-63) Alkaline Phosphatase 157 U/L (46-116) Troponin I Quantitative < 0.017 ng/mL (0.000-0.055) < 0.017 ng/mL (0.000-0.055) < 0.017 ng/mL (0.000-0.055) ZH-Ngc-T-Type Natriuretic Peptide 20 pg/mL (0-124) Total Protein 8.0 g/dL (6.4-8.2) Albumin 3.6 g/dL (3.4-5.0) Albumin/Globulin Ratio 0.8 (1.0-1.7) Lipase 172 U/L (73-393) Vitamin B12 Level 565 pg/mL (247-911) Thyroid Stimulating Hormone (TSH) 0.815 uIU/mL (0.358-3.74) Urine Collection Type Unknown Urine Color Yellow Urine Clarity Clear Urine pH 6.0 Urine Specific [place] 1.010 Urine Protein Negative mg/dL (NEG-TRACE) Urine Glucose (UA) Negative mg/dL (NEG) Urine Ketones (Stick) Negative mg/dL (NEG) Urine Blood Negative (NEG) Urine Nitrite Negative (NEG) Urine Bilirubin Negative (NEG) Urine Urobilinogen Dipstick 0.2 mg/dL (0.2 mg/dL) Urine Leukocyte Esterase Negative (NEG) Urine RBC Rare /HPF (0-2) Urine WBC Rare /HPF (0-4) Urine Squamous Epithelial Cells Occ /LPF Urine Bacteria Few /HPF (0-FEW) Urine Opiates Screen Neg (NEG) Urine Methadone Screen Neg (NEG) Urine Barbiturates Neg (NEG) Urine Phencyclidine Screen Neg (NEG) Urine Amphetamine/Methamphetamine Neg (NEG) Urine Benzodiazepines Screen Neg (NEG) Urine Cocaine Screen Neg (NEG) Urine Cannabinoids Screen Neg (NEG) Urine Ethyl Alcohol Neg (NEG) Laboratory Tests Test 05/21/18 08:15 05/21/18 09:00 05/21/18 12:14 05/21/18 16:20 White Blood Count 9.8 x10^3/uL (4.0-11.0) Red Blood Count 4.95 x10^6/uL (4.30-5.70) Hemoglobin 16.0 g/dL (13.0-17.5) Hematocrit 45.7 % (39.0-53.0) Mean Corpuscular Volume 92 fL (79-100) Mean Corpuscular Hemoglobin 32 pg (25-35) Mean Corpuscular Hemoglobin Concent 35 g/dL (31-37) Red Cell Distribution Width 13.6 % (11.5-14.5) Platelet Count 271 x10^3/uL (140-400) Neutrophils (%) (Auto) 75 % (31-73) Lymphocytes (%) (Auto) 18 % (24-48) Monocytes (%) (Auto) 5 % (0-9) Eosinophils (%) (Auto) 1 % (0-3) Basophils (%) (Auto) 1 % (0-3) Neutrophils # (Auto) 7.4 x10^3uL (1.8-7.7) Lymphocytes # (Auto) 1.8 x10^3/uL (1.0-4.8) Monocytes # (Auto) 0.5 x10^3/uL (0.0-1.1) Eosinophils # (Auto) 0.1 x10^3/uL (0.0-0.7) Basophils # (Auto) 0.0 x10^3/uL (0.0-0.2) Sodium Level 138 mmol/L (136-145) Potassium Level 3.6 mmol/L (3.5-5.1) Chloride Level 99 mmol/L (98-107) Carbon Dioxide Level 30 mmol/L (21-32) Anion Gap 9 (6-14) Blood Urea Nitrogen 11 mg/dL (8-26) Creatinine 0.8 mg/dL (0.7-1.3) Estimated GFR (Cockcroft-Gault) 102.3 BUN/Creatinine Ratio 14 (6-20) Glucose Level 95 mg/dL (70-99) Calcium Level 9.6 mg/dL (8.5-10.1) Magnesium Level 1.9 mg/dL (1.8-2.4) Total Bilirubin 0.6 mg/dL (0.2-1.0) Aspartate Amino Transf (AST/SGOT) 20 U/L (15-37) Alanine Aminotransferase (ALT/SGPT) 35 U/L (16-63) Alkaline Phosphatase 157 U/L (46-116) Troponin I Quantitative < 0.017 ng/mL (0.000-0.055) < 0.017 ng/mL (0.000-0.055) < 0.017 ng/mL (0.000-0.055) AX-Lpu-U-Type Natriuretic Peptide 20 pg/mL (0-124) Total Protein 8.0 g/dL (6.4-8.2) Albumin 3.6 g/dL (3.4-5.0) Albumin/Globulin Ratio 0.8 (1.0-1.7) Lipase 172 U/L (73-393) Vitamin B12 Level 565 pg/mL (247-911) Thyroid Stimulating Hormone (TSH) 0.815 uIU/mL (0.358-3.74) Urine Collection Type Unknown Urine Color Yellow Urine Clarity Clear Urine pH 6.0 Urine Specific [place] 1.010 Urine Protein Negative mg/dL (NEG-TRACE) Urine Glucose (UA) Negative mg/dL (NEG) Urine Ketones (Stick) Negative mg/dL (NEG) Urine Blood Negative (NEG) Urine Nitrite Negative (NEG) Urine Bilirubin Negative (NEG) Urine Urobilinogen Dipstick 0.2 mg/dL (0.2 mg/dL) Urine Leukocyte Esterase Negative (NEG) Urine RBC Rare /HPF (0-2) Urine WBC Rare /HPF (0-4) Urine Squamous Epithelial Cells Occ /LPF Urine Bacteria Few /HPF (0-FEW) Urine Opiates Screen Neg (NEG) Urine Methadone Screen Neg (NEG) Urine Barbiturates Neg (NEG) Urine Phencyclidine Screen Neg (NEG) Urine Amphetamine/Methamphetamine Neg (NEG) Urine Benzodiazepines Screen Neg (NEG) Urine Cocaine Screen Neg (NEG) Urine Cannabinoids Screen Neg (NEG) Urine Ethyl Alcohol Neg (NEG) WALLY SUÁREZ MD May 21, 2018 19:38
[2018-05-21] MEDS: GABAPENTIN 100 MG CAPSULE. PO SCH (20:02)
[2018-05-21 23:52] VITALS: BP 96/55
[2018-05-22 03:49] VITALS: BP 116/80
[2018-05-22] MEDS: MORPHINE SULFATE 4 MG/ML VIAL. IV PRN ×3 (03:58→08:52)
[2018-05-22] MEDS: ONDANSETRON PF 4 MG/2 ML VIAL. IV PRN (03:58)
[2018-05-22 05:32] LABS: CALCIUM 8.8 mg/dL (8.5-10.1); CREATININE 0.8 mg/dL (0.7-1.3); GFR 102.3; POTASSIUM 3.8 mmol/L (3.5-5.1)
[2018-05-22 05:38] LABS: BASO % 1 % (0-3); EOS # 0.2 x10^3/uL (0.0-0.7); EOS % 3 % (0-3); HEMOGLOBIN 14.7 g/dL (13.0-17.5); LYMPH # 1.4 x10^3/uL (1.0-4.8); LYMPH % 20 % (24-48); MEAN CORPUSCULAR HEMOGLOBIN 32 pg (25-35); MEAN CORPUSCULAR HGB CONC 34 g/dL (31-37); MEAN CORPUSCULAR VOLUME 93 fL (79-100); MONO # 0.5 x10^3/uL (0.0-1.1); MONO % 7 % (0-9); NEUT # 5.1 x10^3uL (1.8-7.7); NEUT % 70 % (31-73); PLATELET COUNT 235 x10^3/uL (140-400); RED BLOOD COUNT 4.61 x10^6/uL (4.30-5.70); RED CELL DISTRIBUTION WIDTH 13.4 % (11.5-14.5); WHITE BLOOD COUNT 7.3 x10^3/uL (4.0-11.0)
[2018-05-22 05:43] LABS: CHOLESTEROL/HDL RATIO 4.5
[2018-05-22 07:00] VITALS: BP 108/65
--- NOTE | 2018-05-22 08:45 | RAD ---
Procedure: Bilateral Carotid Duplex examination using B-mode, color flow and spectral Doppler was performed. Indication: Vision changes, weakness/numbness Findings: Within the right carotid arterial system, there is minimal plaquing of the carotid bulb in the distal common carotid artery. The Doppler velocities and waveforms are normal with a peak systolic velocity of 118 cm/s in the right mid internal carotid artery. The ICA/CCA ratio is up to 1.4. The common carotid artery has a peak systolic velocity of 83 cm/sec. The external carotid artery has a peak systolic velocity of 98cm/sec. There is antegrade flow in the right vertebral artery. Within the left carotid arterial system, there is minimal atheromatous plaque at the distal left common carotid artery. The Doppler velocities and waveforms are normal with a peak systolic velocity of 75 cm/s in the mid internal carotid artery. The ICA/CCA ratio is 0.8.The common carotid artery has a peak systolic velocity of 98 cm/sec. The external carotid artery has a peak systolic velocity of 103 cm/sec. There is antegrade flow in the left vertebral artery. Impression: 1. Normal ICA velocities-no evidence for high-grade stenosis. Degree of stenosis (%) ? normal: o ICA PSV is <125 cm/sec and no plaque or intimal thickening is visible sonographically o additional criteria include ICA/CCA PSV ratio <2.0 and ICA EDV <40 cm/sec ? <50% ICA stenosis: o ICA PSV is <125 cm/sec and plaque or intimal thickening is visible sonographically o additional criteria include ICA/CCA PSV ratio <2.0 and ICA EDV <40 cm/sec ? 50-69% ICA stenosis: o ICA PSV is 125-230 cm/sec and plaque is visible sonographically o additional criteria include ICA/CCA PSV ratio of 2.0-4.0 and ICA EDV of 40-100 cm/sec ? ?70% ICA stenosis but less than near occlusion: o ICA PSV is >230 cm/sec and visible plaque and luminal narrowing are seen at robert-scale and colour Doppler ultrasound (the higher the Doppler parameters lie above the threshold of 230 cm/sec, the greater the likelihood of severe disease) o additional criteria include ICA/CCA PSV ratio >4 and ICA EDV >100 cm/sec ? near occlusion of the ICA: o velocity parameters may not apply, since velocities may be high, low, or undetectable o diagnosis is established primarily by demonstrating a markedly narrowed lumen at colour or power Doppler ultrasound ? total occlusion of the ICA: o no detectable patent lumen at robert-scale US and no flow with spectral, power, and colour Doppler ultrasound o there may be compensatory increased velocity in the contralateral carotid [PSV = peak systolic velocity;?EDV = end diastolic velocity; ICA = internal carotid artery; CCA = common carotid artery] Electronically signed by: Sekou Moulton MD (05/22/2018 8:41 AM) [facility]
[2018-05-22] MEDS: ATENOLOL 25 MG TABLET. PO SCH (08:49)
[2018-05-22] MEDS: GABAPENTIN 100 MG CAPSULE. PO SCH ×4 (08:49→20:51)
[2018-05-22] MEDS: ASPIRIN 325 MG TABLET PO SCH (08:49)
[2018-05-22] MEDS: PANTOPRAZOLE 40 MG TABLET.DR. PO SCH (08:49)
[2018-05-22] MEDS ORDERED: hydroCHLOROthiazide 12.5 MG CAPSULE PO SCH (09:00)
[2018-05-22] MEDS ORDERED: LOSARTAN POTASSIUM 50 MG TABLET. PO SCH (09:00)
[2018-05-22] MEDS ORDERED: NON FORMULARY ITEM (Losartan/Hydrochlorothiazide (Losartan-Hctz 50-12.5 Mg Tab) 1 TAB) PO SCH (09:00)
[2018-05-22] MEDS: DOXAZOSIN MESYLATE 1 MG TABLET. PO SCH (10:00)
--- NOTE | 2018-05-22 10:11 | PDOC ---
Provider Note Provider Note [id number] JOHN BARAJAS MD May 22, 2018 10:11
[2018-05-22 11:00] VITALS: BP 114/80
--- NOTE | 2018-05-22 11:09 | HP ---
ADMIT DATE: 05/22/2018 CHIEF COMPLAINT: Chest pain and dizziness. HISTORY OF PRESENT ILLNESS: A 52-year-old white male who is followed in our office for chronic neck pain as well as high blood pressure and some prostate symptoms. He is having what appeared to be some overall dizzy spells and body rushes and had some chest pain as well. Previous cardiac testing has been normal and his cardiac enzymes are all normal here. He has had no further symptoms of note since admission. PAST MEDICAL HISTORY: Listed per the chart. MEDICATIONS: [place] per the chart. He takes losartan/HCT and doxazosin for blood pressure and prostate. ALLERGIES: PENICILLIN. SOCIAL HISTORY: Nonsmoker, employed, and physically active. FAMILY HISTORY: Unremarkable. REVIEW OF SYSTEMS: No other complaints. OBJECTIVE: ENT: All within normal limits. NECK: No carotid bruits, nodes, thyroid enlargement or masses. LUNGS: Clear. CARDIOVASCULAR: Regular rate. No irregular beat or murmur. ABDOMEN: Benign, soft and nontender. EXTREMITIES: Excellent pedal and radial pulses. No joint or skin findings. NEUROLOGIC: Physiologic and nonfocal. Alert, anxious, oriented. ASSESSMENT: Episodes of chest pain and dizziness that are nonspecific in nature. His blood pressure is borderline low in the hospital and he may be having some orthostatic/hypotensive reactions. Doubt this is central neurologic in origin. PLAN: We will hold losartan and HCTZ for now. Check a sed rate. See his echo looks regarding the chest pain. An MRI of the head has been ordered. JOSUE GARRIDO MD DR: SONY/rebecca JOB#: [id number] / [id number]
[2018-05-22] MEDS: traMADol 50 MG TABLET PO PRN ×2 (11:10→19:03)
[2018-05-22] MEDS ORDERED: GADOBUTROL 10 MMOL/10 ML VIAL IV ONE (13:15)
--- NOTE | 2018-05-22 13:58 | PDOC ---
PROGRESS NOTES Assessment Problems Medical Problems: (1) Anxiety Status: Acute (2) Chest pain Status: Acute (3) Numbness and tingling in both hands Status: Acute Patient's had about 8 spells where is sensation of a esqueda goes through his body lasting about 5 seconds. The symptoms are bilateral. I have reviewed the initial images available on MRI which did not reveal evidence of an acute stroke. The carotid Doppler did not reveal hemodynamically significant stenosis. The echocardiogram did not reveal a cardioembolic source. The cause of the symptoms is not clear but could potentially be related to anxiety. A seizure would be unlikely but possible. He could have an outpatient sleep deprived EEG. (4) Numbness and tingling of foot Status: Acute As above Plan He may be dismissed from a neurologic perspective when medically stable. I await the radiologic interpretation of the MRI brain. A sleep deprived EEG could be performed as an outpatient. He can follow-up with Dr. Solano following the study. Subjective I have had one spell since I've been here. It feels like a dizzy esqueda sensation through my body which starts in my head and works its way down my arms and legs and lasts about 5 seconds. Objective Vital Signs Date Time Temp Pulse Resp B/P (MAP) Pulse Ox O2 Delivery O2 Flow Rate FiO2 05/22/18 12:57 18 96 Room Air 05/22/18 11:00 98.1 57 114/80 (91) 98.1 Intake and Output 05/22/18 07:01 Intake Total 900 ml Balance 900 ml Intake Oral 900 ml # Voids 4 PHYSICAL EXAM He was alert, awake and cooperative. The speech was fluent and clear. He had a good fund of recent and remote knowledge. Attention and concentration was intact. He was well-groomed and well-nourished. He was fully oriented. Examination of the cranial nerves revealed visual montgomery were full to confrontation. Extraocular movements were intact. The eyes were conjugate. Pursuit movements were smooth and saccadic movements were without dysmetria. The pupils were 3 millimeters and reacted to light. There was no afferent pupillary defect. Facial sensation was intact. The muscles of mastication and facial expression were powerful symmetrically. Hearing was intact to finger rub. The palate arch symmetrically and the tongue was midline with full range of motion. Sternocleidomastoid and trapezius were powerful bilaterally. Muscle bulk and tone was normal. There was no arm drift or abnormal movement. The power was full and symmetric in the upper and lower extremities. Reflexes were 2 /4 and symmetric in the upper and lower extremities. The toes were downgoing bilaterally. Coordination testing with finger to nose, heel to beasley, fine motor and rapid alternating movements was well performed. The sensory examination was intact to pain and light touch. There was no extinction to double simultaneous stimulation. Peripheral pulses are 2/4 at the wrists and feet. There was no edema or cyanosis of the extremities. Review of Relevant I have reviewed the following items princess (where applicable) has been applied. Labs Laboratory Tests Test 05/21/18 08:15 05/21/18 09:00 05/21/18 12:14 05/21/18 16:20 White Blood Count 9.8 x10^3/uL (4.0-11.0) Red Blood Count 4.95 x10^6/uL (4.30-5.70) Hemoglobin 16.0 g/dL (13.0-17.5) Hematocrit 45.7 % (39.0-53.0) Mean Corpuscular Volume 92 fL (79-100) Mean Corpuscular Hemoglobin 32 pg (25-35) Mean Corpuscular Hemoglobin Concent 35 g/dL (31-37) Red Cell Distribution Width 13.6 % (11.5-14.5) Platelet Count 271 x10^3/uL (140-400) Neutrophils (%) (Auto) 75 % (31-73) Lymphocytes (%) (Auto) 18 % (24-48) Monocytes (%) (Auto) 5 % (0-9) Eosinophils (%) (Auto) 1 % (0-3) Basophils (%) (Auto) 1 % (0-3) Neutrophils # (Auto) 7.4 x10^3uL (1.8-7.7) Lymphocytes # (Auto) 1.8 x10^3/uL (1.0-4.8) Monocytes # (Auto) 0.5 x10^3/uL (0.0-1.1) Eosinophils # (Auto) 0.1 x10^3/uL (0.0-0.7) Basophils # (Auto) 0.0 x10^3/uL (0.0-0.2) Sodium Level 138 mmol/L (136-145) Potassium Level 3.6 mmol/L (3.5-5.1) Chloride Level 99 mmol/L (98-107) Carbon Dioxide Level 30 mmol/L (21-32) Anion Gap 9 (6-14) Blood Urea Nitrogen 11 mg/dL (8-26) Creatinine 0.8 mg/dL (0.7-1.3) Estimated GFR (Cockcroft-Gault) 102.3 BUN/Creatinine Ratio 14 (6-20) Glucose Level 95 mg/dL (70-99) Calcium Level 9.6 mg/dL (8.5-10.1) Magnesium Level 1.9 mg/dL (1.8-2.4) Total Bilirubin 0.6 mg/dL (0.2-1.0) Aspartate Amino Transf (AST/SGOT) 20 U/L (15-37) Alanine Aminotransferase (ALT/SGPT) 35 U/L (16-63) Alkaline Phosphatase 157 U/L (46-116) Troponin I Quantitative < 0.017 ng/mL (0.000-0.055) < 0.017 ng/mL (0.000-0.055) < 0.017 ng/mL (0.000-0.055) AH-Npv-N-Type Natriuretic Peptide 20 pg/mL (0-124) Total Protein 8.0 g/dL (6.4-8.2) Albumin 3.6 g/dL (3.4-5.0) Albumin/Globulin Ratio 0.8 (1.0-1.7) Lipase 172 U/L (73-393) Vitamin B12 Level 565 pg/mL (247-911) Thyroid Stimulating Hormone (TSH) 0.815 uIU/mL (0.358-3.74) Urine Collection Type Unknown Urine Color Yellow Urine Clarity Clear Urine pH 6.0 Urine Specific [place] 1.010 Urine Protein Negative mg/dL (NEG-TRACE) Urine Glucose (UA) Negative mg/dL (NEG) Urine Ketones (Stick) Negative mg/dL (NEG) Urine Blood Negative (NEG) Urine Nitrite Negative (NEG) Urine Bilirubin Negative (NEG) Urine Urobilinogen Dipstick 0.2 mg/dL (0.2 mg/dL) Urine Leukocyte Esterase Negative (NEG) Urine RBC Rare /HPF (0-2) Urine WBC Rare /HPF (0-4) Urine Squamous Epithelial Cells Occ /LPF Urine Bacteria Few /HPF (0-FEW) Urine Opiates Screen Neg (NEG) Urine Methadone Screen Neg (NEG) Urine Barbiturates Neg (NEG) Urine Phencyclidine Screen Neg (NEG) Urine Amphetamine/Methamphetamine Neg (NEG) Urine Benzodiazepines Screen Neg (NEG) Urine Cocaine Screen Neg (NEG) Urine Cannabinoids Screen Neg (NEG) Urine Ethyl Alcohol Neg (NEG) Test 05/22/18 05:00 05/22/18 12:17 White Blood Count 7.3 x10^3/uL (4.0-11.0) Red Blood Count 4.61 x10^6/uL (4.30-5.70) Hemoglobin 14.7 g/dL (13.0-17.5) Hematocrit 43.0 % (39.0-53.0) Mean Corpuscular Volume 93 fL (79-100) Mean Corpuscular Hemoglobin 32 pg (25-35) Mean Corpuscular Hemoglobin Concent 34 g/dL (31-37) Red Cell Distribution Width 13.4 % (11.5-14.5) Platelet Count 235 x10^3/uL (140-400) Neutrophils (%) (Auto) 70 % (31-73) Lymphocytes (%) (Auto) 20 % (24-48) Monocytes (%) (Auto) 7 % (0-9) Eosinophils (%) (Auto) 3 % (0-3) Basophils (%) (Auto) 1 % (0-3) Neutrophils # (Auto) 5.1 x10^3uL (1.8-7.7) Lymphocytes # (Auto) 1.4 x10^3/uL (1.0-4.8) Monocytes # (Auto) 0.5 x10^3/uL (0.0-1.1) Eosinophils # (Auto) 0.2 x10^3/uL (0.0-0.7) Basophils # (Auto) 0.0 x10^3/uL (0.0-0.2) Sodium Level 140 mmol/L (136-145) Potassium Level 3.8 mmol/L (3.5-5.1) Chloride Level 103 mmol/L (98-107) Carbon Dioxide Level 31 mmol/L (21-32) Anion Gap 6 (6-14) Blood Urea Nitrogen 12 mg/dL (8-26) Creatinine 0.8 mg/dL (0.7-1.3) Estimated GFR (Cockcroft-Gault) 102.3 Glucose Level 92 mg/dL (70-99) Calcium Level 8.8 mg/dL (8.5-10.1) Triglycerides Level 104 mg/dL (0-150) Cholesterol Level 216 mg/dL (0-200) LDL Cholesterol, Calculated 147 mg/dL (0-100) VLDL Cholesterol, Calculated 21 mg/dL (0-40) Non-HDL Cholesterol Calculated 168 mg/dL (0-129) HDL Cholesterol 48 mg/dL (40-60) Cholesterol/HDL Ratio 4.5 Erythrocyte Sedimentation Rate 6 (0-15) Laboratory Tests Test 05/21/18 16:20 05/22/18 05:00 05/22/18 12:17 Troponin I Quantitative < 0.017 ng/mL (0.000-0.055) White Blood Count 7.3 x10^3/uL (4.0-11.0) Red Blood Count 4.61 x10^6/uL (4.30-5.70) Hemoglobin 14.7 g/dL (13.0-17.5) Hematocrit 43.0 % (39.0-53.0) Mean Corpuscular Volume 93 fL (79-100) Mean Corpuscular Hemoglobin 32 pg (25-35) Mean Corpuscular Hemoglobin Concent 34 g/dL (31-37) Red Cell Distribution Width 13.4 % (11.5-14.5) Platelet Count 235 x10^3/uL (140-400) Neutrophils (%) (Auto) 70 % (31-73) Lymphocytes (%) (Auto) 20 % (24-48) Monocytes (%) (Auto) 7 % (0-9) Eosinophils (%) (Auto) 3 % (0-3) Basophils (%) (Auto) 1 % (0-3) Neutrophils # (Auto) 5.1 x10^3uL (1.8-7.7) Lymphocytes # (Auto) 1.4 x10^3/uL (1.0-4.8) Monocytes # (Auto) 0.5 x10^3/uL (0.0-1.1) Eosinophils # (Auto) 0.2 x10^3/uL (0.0-0.7) Basophils # (Auto) 0.0 x10^3/uL (0.0-0.2) Sodium Level 140 mmol/L (136-145) Potassium Level 3.8 mmol/L (3.5-5.1) Chloride Level 103 mmol/L (98-107) Carbon Dioxide Level 31 mmol/L (21-32) Anion Gap 6 (6-14) Blood Urea Nitrogen 12 mg/dL (8-26) Creatinine 0.8 mg/dL (0.7-1.3) Estimated GFR (Cockcroft-Gault) 102.3 Glucose Level 92 mg/dL (70-99) Calcium Level 8.8 mg/dL (8.5-10.1) Triglycerides Level 104 mg/dL (0-150) Cholesterol Level 216 mg/dL (0-200) LDL Cholesterol, Calculated 147 mg/dL (0-100) VLDL Cholesterol, Calculated 21 mg/dL (0-40) Non-HDL Cholesterol Calculated 168 mg/dL (0-129) HDL Cholesterol 48 mg/dL (40-60) Cholesterol/HDL Ratio 4.5 Erythrocyte Sedimentation Rate 6 (0-15) Medications Current Medications Aspirin ([employer] Aspirin) 325 mg 1X ONCE PO Last administered on 05/21/18at 08:36 ; Start 05/21/18 at 08:30; Stop 05/21/18 at 08:31; Status DC Morphine Sulfate (Morphine Sulfate) 2 mg 1X ONCE IV Last administered on at 09:04; Start 05/21/18 at 08:45; Stop 05/21/18 at 08:46; Status DC Ondansetron HCl (Zofran) 4 mg 1X ONCE IV Last administered on 05/21/18at 09:13 ; Start 05/21/18 at 09:15; Stop 05/21/18 at 09:16; Status DC Ondansetron HCl (Zofran) 4 mg PRN Q8HRS PRN IV NAUSEA/VOMITING Last administered on 05/22/18at 03:58; Start 05/21/18 at 12:00; Stop 05/22/18 at 11:59 ; Status DC Morphine Sulfate (Morphine Sulfate) 4 mg PRN Q2HR PRN IV PAIN Last administered on 05/22/18at 08:52; Start 05/21/18 at 12:00; Stop 05/22/18 at 10:08 ; Status DC Nitroglycerin (Nitrostat) 0.4 mg PRN Q5MIN PRN SL CHEST PAIN Last administered on 05/21/18at 16:50; Start 05/21/18 at 12:00; Stop 05/22/18 at 11:59; Status DC Perflutren Protein Type A Microsphe (Optison) 0.66 mg STK-MED ONCE IV ; Start at 14:56; Stop 05/21/18 at 14:58; Status DC Perflutren Protein Type A Microsphe (Optison) 0.66 mg PRN 1X PRN IV SEE COMMENTS; Start 05/21/18 at 15:15; Stop 05/22/18 at 11:26; Status DC Atenolol (Tenormin) 25 mg DAILY PO Last administered on 05/22/18at 08:49; Start 05/22/18 at 09:00 Non-Formulary Medication (Losartan/ Hydrochlorothiazide (Losartan-Hctz 50-12.5 Mg Tab)) 1 tab DAILY PO ; Start 05/22/18 at 09:00; Status UNV Pantoprazole Sodium (Protonix) 40 mg DAILYAC PO Last administered on 05/22/18 08:49; Start 05/22/18 at 07:30 Losartan Potassium (Cozaar) 50 mg DAILY PO Last administered on 05/22/18at 08:50 ; Start 05/22/18 at 09:00; Stop 05/22/18 at 10:08; Status DC Hydrochlorothiazide (Microzide) 12.5 mg DAILY PO Last administered on 08:49; Start 05/22/18 at 09:00; Stop 05/22/18 at 10:08; Status DC Aspirin (Polly Aspirin) 325 mg DAILYWBKFT PO Last administered on 05/22/18 08: 49; Start 05/22/18 at 08:00 Gabapentin (Neurontin) 100 mg TID PO Last administered on 05/22/18 08:49; Start 05/21/18 at 21:00 Lorazepam (Ativan) 2 mg 1X ONCE IV Last administered on 05/22/18at 12:52; Start 05/22/18 at 09:45; Stop 05/22/18 at 09:47; Status DC Doxazosin Mesylate (Cardura) 2 mg DAILY PO ; Start 05/22/18 at 10:00 Tramadol HCl (Ultram) 50 mg PRN Q6HRS PRN PO PAIN Last administered on at 11:10; Start 05/22/18 at 10:00 Gadobutrol (Gadavist) 10 mmol 1X ONCE IV Last administered on 05/22/18at 13:24 ; Start 05/22/18 at 13:15; Stop 05/22/18 at 13:19; Status DC Active Scripts Active Atenolol 25 Mg Tablet 1 Tab PO DAILY Reported Modafinil 100 Mg Tablet 200 Mg PO DAILY Protonix (Pantoprazole Sodium) 20 Mg Tablet.dr 40 Mg PO DAILY Losartan-Hctz 50-12.5 Mg Tab (Losartan/Hydrochlorothiazide) 1 Each Tablet 1 Tab PO DAILY Doxazosin Mesylate 2 Mg Tablet 1 Tab PO DAILY Vitals/I & O Vital Sign - Last 24 Hours 05/21/18 05/21/18 05/21/18 05/21/18 15:19 15:30 16:50 19:04 Temp 98.2 98.2 Pulse 63 59 Resp 20 B/P (MAP) 126/70 (88) 118/73 Pulse Ox 96 O2 Delivery Room Air Room Air Room Air 05/21/18 05/21/18 05/21/18 05/21/18 19:20 20:00 20:42 23:52 Temp 98.0 98.0 98.0 98.0 Pulse 59 57 Resp 18 18 18 B/P (MAP) 121/70 (87) 96/55 (69) Pulse Ox 98 96 96 O2 Delivery Room Air Room Air Room Air Room Air 05/21/18 05/22/18 05/22/18 05/22/18 23:57 03:49 03:58 06:15 Temp 97.3 97.3 Pulse 73 Resp 18 18 18 20 B/P (MAP) 116/80 (92) Pulse Ox 96 98 98 98 O2 Delivery Room Air Room Air Room Air Room Air 05/22/18 05/22/18 05/22/18 05/22/18 06:45 07:00 08:00 08:49 Temp 98.5 98.5 Pulse 58 58 Resp 18 18 B/P (MAP) 108/65 (79) 108/65 Pulse Ox 98 96 O2 Delivery Room Air Room Air Room Air 05/22/18 05/22/18 05/22/18 05/22/18 08:50 08:52 10:00 11:00 Temp 98.1 98.1 Pulse 58 58 57 Resp 16 14 B/P (MAP) 108/65 108/65 114/80 (91) Pulse Ox 96 96 O2 Delivery Room Air Room Air 05/22/18 05/22/18 11:10 12:57 Resp 18 Pulse Ox 96 96 O2 Delivery Room Air Room Air Intake and Output 05/21/18 05/21/18 05/22/18 15:01 23:01 07:01 Intake Total 400 ml 500 ml Balance 400 ml 500 ml FIDELINA MOULTON MD May 22, 2018 13:58
[2018-05-22 15:00] VITALS: BP 102/64
--- NOTE | 2018-05-22 15:10 | RAD ---
MRI brain with and without contrast dated 05/22/2018. Comparison made to 04/10/2017. CLINICAL INDICATION: Recurrent numbness in all extremities. Possible CVA. Possible multiple sclerosis. TECHNIQUE: Routine multiplanar multisequence MR imaging of brain performed with and without the administration of 10 cc Gadavist. FINDINGS: Ventricles and sulci are stable. No midline shift or mass effect. Brain parenchyma is of normal signal intensity. No hemorrhage or extra-axial collection. Posterior fossa and brainstem unremarkable. No evidence of acute diffusion restriction. Major intracranial flow-voids are present. Postcontrast imaging shows no abnormal enhancement or mass. No significant white matter lesions. Visualized paranasal sinuses and mastoid air cells are clear. No apparent calvarial abnormality. There is minimal mucosal thickening of the sphenoid sinuses and ethmoid air cells. IMPRESSION: No evidence of acute intracranial abnormality. Electronically signed by: Riley Karu MD (05/22/2018 3:06 PM) [facility] [place]
[2018-05-22 19:35] VITALS: BP 96/68
[2018-05-22] MEDS ORDERED: ACETAMINOPHEN 325 MG TABLET. PO PRN (22:15)
[2018-05-22] MEDS ORDERED: ONDANSETRON PF 4 MG/2 ML VIAL. IV PRN (22:15)
--- NOTE | 2018-05-22 22:16 | NUR ---
Patient c/o of nausea and BACK. Patient is A/O x 4. Moves all extremities. VSS. Skin warm and dry. No emesis noted at this time. Spoke with Dr Troncoso and obtained orders for Zofran and Tylenol PRN. Meds given as ordered. Patient in bed. Call light at hand.
[2018-05-22 22:43] VITALS: BP 91/57
[2018-05-23] MEDS: traMADol 50 MG TABLET PO PRN ×2 (01:28→08:31)
[2018-05-23 03:44] VITALS: BP 104/63
[2018-05-23 05:33] VITALS: BP 125/78
--- NOTE | 2018-05-23 05:37 | NUR ---
Patient c/o left chest pain, tingle in arms. C/O BACK. Patient describes this as "coming in waves that go thru him like a train and then it is gone and he is left in the wind". VSS. BP 125/78, HR 54, O2Sat 98% RA. Skin warm and dry. Patient given Tylenol 650 po, Ultram 50mg twice and Neurontin 100 mg once so far this shift. Patient request to call doctor and ask for "something else". Spoke with Dr Troncoso and obtained orders for Xanax 0.5 TID prn.
[2018-05-23] MEDS ORDERED: ALPRAZolam 0.5 MG TABLET PO PRN (05:45)
[2018-05-23 07:00] VITALS: BP 99/68
[2018-05-23] MEDS: DOXAZOSIN MESYLATE 1 MG TABLET. PO SCH (08:28)
[2018-05-23 08:29] VITALS: BP 125/78
[2018-05-23] MEDS: ATENOLOL 25 MG TABLET. PO SCH (08:29)
[2018-05-23] MEDS: PANTOPRAZOLE 40 MG TABLET.DR. PO SCH (08:29)
[2018-05-23] MEDS: ASPIRIN 325 MG TABLET PO SCH (08:29)
[2018-05-23] MEDS: GABAPENTIN 100 MG CAPSULE. PO SCH (08:29)
--- NOTE | 2018-05-23 09:45 | DISCH ---
DISCHARGE INSTRUCTIONS Condition on Discharge Condition on Discharge: Stable Activity After Discharge Activity Instructions for Disc: No restrictions Diet after Discharge Diet after Discharge: Regular, Low Sodium 4 gm Contacting the after DC Call your doctor for: If your condition worsens Follow-Up Follow up with: dr pineda 2 w Treatment/Equipment after DC Adaptive Equipment Issued: None JOHN BARAJAS MD May 23, 2018 09:45
--- NOTE | 2018-05-23 09:48 | PDOC ---
Provider Note Provider Note [id number] JOHN BARAJAS MD May 23, 2018 09:48
--- NOTE | 2018-05-23 10:48 | DS ---
DATE OF DISCHARGE: 05/23/2018 HOSPITAL SUMMARY: The patient came in with dizziness of nonspecific nature with rushes down his body. CBC, chemistry profile, urine drug screen, B12, TSH, urinalysis were all unremarkable. MRI of the head was normal, as was carotid Doppler studies, head CT and a chest x-ray. His blood pressure was mildly low in the hospital, so we held his losartan HCT and he is feeling a little better at this time. No other etiologies for these symptoms were found. We discussed an outpatient management and plan for the blood pressure meds and we will follow up as an outpatient. FINAL DIAGNOSES: Dizziness, likely secondary to orthostatic hypotension. OPERATIONS, PROCEDURES, COMPLICATIONS: None. CONSULTATIONS: Dr. Solano. DISPOSITION: He will hold losartan HCT for 2 days, then take a half tablet daily instead of 1 tablet daily. Rest of meds remain the same. Good fluid intake. Activity as tolerated. Office followup in 2 weeks to see if his symptoms have improved and follow his blood pressure. May need to switch to either losartan or HCT by itself, depends on response. PROGNOSIS: Good. JOHN BARAJAS MD DR: SINCERE/rebecca JOB#: [id number] / [id number]
--- NOTE | 2018-05-23 12:12 | NUR ---
Discharge Note: AMBREEN ABDULLAHI Discharge instructions and discharge home medications reviewed with Patient and a copy given. All questions have been answered and understanding verbalized. Instructions and handouts were given. Discontinued lines and drains. Patient discharged to home self care.
--- NOTE | 2018-05-24 15:35 | HP ---
ADMIT DATE: 05/22/2018 CHIEF COMPLAINT: Chest pain and dizziness. HISTORY OF PRESENT ILLNESS: A 52-year-old white male who is followed in our office for chronic neck pain as well as high blood pressure and some prostate symptoms. He is having what appeared to be some overall dizzy spells and body rushes and had some chest pain as well. Previous cardiac testing has been normal and his cardiac enzymes are all normal here. He has had no further symptoms of note since admission. PAST MEDICAL HISTORY: Listed per the chart. MEDICATIONS: Channing per the chart. He takes losartan/HCT and doxazosin for blood pressure and prostate. ALLERGIES: PENICILLIN. SOCIAL HISTORY: Nonsmoker, employed, and physically active. FAMILY HISTORY: Unremarkable. REVIEW OF SYSTEMS: No other complaints. OBJECTIVE: ENT: All within normal limits. NECK: No carotid bruits, nodes, thyroid enlargement or masses. LUNGS: Clear. CARDIOVASCULAR: Regular rate. No irregular beat or murmur. ABDOMEN: Benign, soft and nontender. EXTREMITIES: Excellent pedal and radial pulses. No joint or skin findings. NEUROLOGIC: Physiologic and nonfocal. Alert, anxious, oriented. ASSESSMENT: Episodes of chest pain and dizziness that are nonspecific in nature. His blood pressure is borderline low in the hospital and he may be having some orthostatic/hypotensive reactions. Doubt this is central neurologic in origin. PLAN: We will hold losartan and HCTZ for now. Check a sed rate. See his echo looks regarding the chest pain. An MRI of the head has been ordered. JOHN BARAJAS MD DR: SINCERE/rebecca JOB#: [id number] / [id number]
== END 2018-05-23 10:40 | disposition home or self-care (01) | DRG 312 ==
LOC: ER 08:02 → 2 NORTH 11:27
PROVIDERS: ADMIT Family Medicine; ATTEND Family Medicine
DX: I95.1 Orthostatic hypotension (principal); E78.00 Pure hypercholesterolemia, unspecified; R16.0 Hepatomegaly, not elsewhere classified; F41.9 Anxiety disorder, unspecified; I10 Essential (primary) hypertension; E78.5 Hyperlipidemia, unspecified; E66.9 Obesity, unspecified; G89.29 Other chronic pain; R07.89 Other chest pain; E11.9 Type 2 diabetes mellitus without complications; G56.00 Carpal tunnel syndrome, unspecified upper limb; K21.9 Gastro-esophageal reflux disease without esophagitis; Z82.49 Family history of ischemic heart disease and other diseases of the circulatory system; Z72.0 Tobacco use; Z90.49 Acquired absence of other specified parts of digestive tract; Z68.30 Body mass index [BMI] 30.0-30.9, adult; K22.2 Esophageal obstruction
CPT/HCPCS: 99285; C8929; 36415; 70450; 70553; 71045; 80048; 80053; 80061; 80307; 81001; 82607; 83690; 83735; 83880; 84443; 84484; 85025; 85651; 93005; 93880; 96374; 96375; A9585; J2060; J2270; J2405; Q9956; G0378

== ENCOUNTER → 2018-06-18 | Outpatient (CLI) | payer OTHER ==
[2018-05-23 08:29] VITALS: BP 125/78
[~2018-06-18] MED LIST changes: +BUPIVACAINE MPF 0.25% 10 ML VIAL. ONE; +IOHEXOL 180 MG/ML 10 ML VIAL. ONE; +PANT40TA3 PO; +PANT40TA5 PO; -PANT40TA77 PO; +TIZA4TAB PO; -TIZA4TAB2 PO; +methylPREDNISolone ACETATE 40 MG/ML VIAL. ONE; +methylPREDNISolone ACETATE 80 MG/ML VIAL. ONE
--- NOTE | 2018-06-18 18:01 | PAIN ---
DATE OF SERVICE: 06/18/2018 DIAGNOSES: 1. Lumbar radiculopathy with lumbar degenerative disk disease. 2. Cervical radiculopathy with cervical degenerative disk disease. 3. Myofascial pain. HISTORY OF PRESENT ILLNESS: The patient is a 52-year-old male who returns for a followup status post lumbar epidural steroid injection x 2. The patient did very well with about a 50-75% improvement of pain in low back and left greater than right lower extremity. The patient reports pain is returning now in the low back and left leg, mostly in the posterior gluteus, posterior lateral thigh, lateral anterior thigh, medial thigh on the left side greater than the right; worse with walking, standing, changing positions; better with sitting or lying down. The patient reports the pain is a 10 on scale of 10 at its worst, 8 on average, 8 at its least and is an 8 today, but it is aching, sharp, dull, shooting, stabbing, radiating, becoming more constant, sometimes unbearable when he is on his feet for more than about an hour. The patient reports it can be severe as well across the low back and into the posterior gluteus, more on the left than the right. The patient reports no new motor or sensory deficits, no new bowel or bladder incontinence or other complaints. Sleeping fairly well, awakens him from sleep occasionally, but not every night, mostly he is sleeping 6-7 hours at a time. PHYSICAL EXAMINATION: VITAL SIGNS: The patient's blood pressure is 124/85, pulse 70, respirations are 20, temperature is 98.0 degrees Fahrenheit, height is 6 feet, weight is 233 pounds. GENERAL: The patient is awake, alert, oriented, appropriate, very pleasant demeanor. HEENT: Shows normocephalic, atraumatic. Extraocular movements are intact and symmetrical. Oral cavity shows mucous membranes moist and pink. Dentition is intact. NECK: Shows anterior throat supple without palpable lymphadenopathy noted. Swallow reflex is symmetrical. CHEST: Shows normal with inspection. Breath sounds clear to auscultation bilaterally. HEART: Shows S1, S2 clear. No murmurs auscultated. ABDOMEN: Soft, nontender, nondistended. No palpable organomegaly is noted. MUSCULOSKELETAL: Back shows spine grossly in the midline. Cervical paraspinous muscle shows symmetrical on inspection with some moderate tenderness diffusely throughout the upper, middle and lower distribution of paraspinous musculature, but without specific radiation. The patient's lumbar paraspinous muscle shows symmetrical on inspection, with palpation shows some moderate tenderness more on the left than the right, but symmetrical without evidence of atrophy or hypertrophy in this region as well. No trigger points, no radiation of pain in the lumbar distribution. The patient has good rotational motion of the lumbar spine, both laterally as well as extension and flexion without significant difficulty. Lower extremities show deep tendon reflexes 2+ in the patellar and tendo-calcaneus tendons are 1+ bilaterally. Motor exam is strong with 5/5 dorsiflexion, extension, quadriceps and hamstring flexion, equal. Peripheral pulses are 1+ posterior tibial. No peripheral edema is noted. PLAN: Options were discussed with the patient. The patient's old chart was reviewed as his current medication regimen and updated. Current review of systems updated today as well. We will proceed with a third in the series of lumbar epidural steroid injection today with fluoroscopic guidance. Risks were again discussed including, but not limited to, bleeding, infection, possibility of epidural hematoma, subsequent neurological compromise, dural puncture, headaches, spinal cord and/or nerve damage, side effects of steroid medication and poor results regarding pain control. The patient understands and wished to proceed. He will return to clinic in approximately 2 weeks for a followup, was counseled on return appointment, activity level and side effects to be aware of. DIAGNOSIS: Lumbar radiculopathy with lumbar degenerative disk disease. PROCEDURE: Lumbar epidural steroid injection, translaminar approach at the L4-L5 level using C-arm fluoroscopic guidance under sterile prep and drape using local anesthetic. MEDICATION INJECTED: A total of 120 mg Depo-Medrol plus 10 mL of preservative-free normal saline and 2 mL of Isovue for contrast. CONDITION AT DISCHARGE: Stable. The patient tolerated the procedure well, had no complications. WAYNE MARTIN MD DR: NI/rebecca JOB#: [id number] / [id number]
== END ==
LOC: PNCL 07:47
PROVIDERS: ATTEND Anesthesiology
DX: M51.16 Intervertebral disc disorders with radiculopathy, lumbar region (principal); M50.10 Cervical disc disorder with radiculopathy, unspecified cervical region
CPT/HCPCS: 62323; J1030; J1040; J3490; Q9965

== ENCOUNTER → 2018-07-02 | Outpatient (CLI) | payer OTHER ==
[~2018-07-02] MED LIST changes: -IOHEXOL 180 MG/ML 10 ML VIAL. ONE; -methylPREDNISolone ACETATE 40 MG/ML VIAL. ONE; -methylPREDNISolone ACETATE 80 MG/ML VIAL. ONE
--- NOTE | 2018-07-02 22:03 | PAIN ---
DATE OF SERVICE: 07/02/2018 PROGRESS NOTE FOR PAIN CLINIC DIAGNOSES: 1. Myofascial pain. 2. Cervical radiculopathy with cervical degenerative disk disease. 3. Lumbar radiculopathy with lumbar degenerative disk disease. HISTORY OF PRESENT ILLNESS: The patient is a 52-year-old male who returns for followup status post trigger point injection as well as cervical and lumbar epidural steroid injection. The patient had lumbar epidural injection on June 18. The patient did very well with 80% improvement. The patient reports his chief complaint now is pain in the base of the neck and shoulders, upper back as it has been in the past. The patient reports he did do well with the Medrol pack, which he took about a week ago, which decreased the neck pain temporarily. The patient reports it has been awakening him from sleep occasionally with his neck pain. The back is doing much better, still small amount of pain in the right side. The patient reports his pain in the neck and shoulder is a 9 on a scale of 10 at its worst, 7 on average, 6 at its least and is a 6 today. The patient reports it is stabbing, aching, sharp, shooting and radiating into the shoulders, slightly worse on the left side but more tender and tight on the right side in the neck. The patient reports no new motor or sensory deficits and no new changes. PHYSICAL EXAMINATION: VITAL SIGNS: The patient's blood pressure 121/83, pulse 72, respirations are 16 and temperature 98.3 degrees Fahrenheit. Height 6 feet and weight is 223 pounds. GENERAL: The patient is awake, alert, oriented, appropriate and very pleasant demeanor. HEENT: Shows normocephalic and atraumatic. Extraocular movements are intact and symmetrical. Oral cavity: Mucous membranes moist and pink. Dentition is intact. NECK: Shows anterior throat supple without palpable lymphadenopathy noted. Swallow reflex symmetrical. CHEST: Shows normal on inspection. Breath sounds clear to auscultation bilaterally. HEART: Shows S1 and S2 clear. No murmurs auscultated. ABDOMEN: Obese, soft, nontender and nondistended. No palpable organomegaly is noted. No rebound or guarding demonstrated. BACK: Shows spine grossly in the midline. Cervical paraspinous musculature shows symmetrical on inspection with normal cervical lordotic curvature, normal thoracic kyphotic curvature and normal appearing lumbar lordotic curvature. Paraspinous muscles in the cervical distribution on inspection are symmetrical with palpation shows some very firm rope-like musculature throughout the upper, middle, lower distribution of the cervical paraspinous muscles as well as into the right greater than left trapezius musculature, also extending more on the right in the thoracic paraspinous musculature and the rhomboid on the right side, very firm rope-like musculature consistent with trigger point areas of muscle, very tender but without significant radiation. The patient shows good rotational motion of the cervical spine, somewhat guarded with extension, but not forward flexion. EXTREMITIES: The patient's upper extremities show deep tendon reflexes 2+ in the biceps and triceps tendons. Motor exam is strong with corn detasseler strength rated 5/5 as is bicep and tricep flexion. Peripheral pulses are 2+ radial distribution. No peripheral edema is noted bilaterally. Options were discussed with the patient. The patient's old chart was reviewed as well as his current medication regimen updated. Current review of systems updated today as well. We will proceed with trigger point injections of the aforementioned musculature. Risks were again discussed including, but not limited to bleeding, infection, possibility of intravascular injection sequelae, spread of local anesthetic and numbness, pneumothorax, side effects of steroid medication and poor results regarding pain control. The patient understands and wished to proceed. The patient will return to the clinic in approximately 2 weeks for followup, was counseled as to return appointment, activity level and side effects to be aware of. DIAGNOSIS: Myofascial pain. PROCEDURE: Trigger point injections, bilateral cervical paraspinous musculature, bilateral trapezius musculature, bilateral thoracic paraspinous musculature under sterile prep and drape using local anesthetic. MEDICATION INJECTED: A total of 10 mL of 0.25% bupivacaine after negative aspiration at each injection site. CONDITION AT DISCHARGE: Stable. The patient tolerated the procedure well and had no complications. WAYNE MARTIN MD DR: NI/rebecca JOB#: [id number] / [id number]
== END | disposition home or self-care (01) ==
LOC: PNCL 07:43
PROVIDERS: ATTEND Anesthesiology
DX: M79.18 Myalgia, other site (principal); M51.16 Intervertebral disc disorders with radiculopathy, lumbar region; M50.10 Cervical disc disorder with radiculopathy, unspecified cervical region; Z88.0 Allergy status to penicillin
CPT/HCPCS: 20553; J3490

== ENCOUNTER → 2018-08-10 | Outpatient (CLI) | payer OTHER ==
[~2018-08-10] MED LIST changes: -BUPIVACAINE MPF 0.25% 10 ML VIAL. ONE; +BUPIVACAINE MPF 0.25% 30 ML VIAL. ONE; +methylPREDNISolone ACETATE 40 MG/ML VIAL. ONE
--- NOTE | 2018-08-10 22:29 | PAIN ---
DATE OF SERVICE: 08/10/2018 PROGRESS NOTE FOR PAIN CLINIC DIAGNOSES: 1. Myofascial pain. 2. Cervical radiculopathy with cervical degenerative disk disease. 3. Lumbar radiculopathy with lumbar degenerative disk disease. HISTORY OF PRESENT ILLNESS: The patient is a 52-year-old male who returns for followup status post trigger point injections on his last visit. The patient reports he did very well about 70% improvement for the first 3 weeks or so. Basically, the pain has returned in the base of the neck, now shoulders, upper back, mid back and also in the low back. The patient reports it is a 10 on a scale of 10 at its worst, 7 on average, 7 at its least and is 7 today. The patient reports it is aching, tight, shooting, stabbing, radiating, becoming more severe, more constant, more unbearable at times, worse in the mornings, wakes him up at night from the pain in the neck and the base of the shoulders. The patient reports no specific radiation in the upper extremities, although some low back pain with radiation to the lower extremities as he had previously. The patient reports no new motor or sensory deficits and no new bowel or bladder incontinence or other complaints. PHYSICAL EXAMINATION: VITAL SIGNS: Today, the patient's blood pressure is 123/86, pulse 59, respirations 18 and temperature 98.4 degrees Fahrenheit. Height is 6 feet 0 inches and weight is 221 pounds. GENERAL: The patient is awake, alert, oriented, appropriate and very pleasant demeanor. HEENT: Head shows normocephalic and atraumatic. Extraocular movements are intact and symmetrical. Oral cavity: Mucous membranes moist and pink. Dentition is intact. NECK: Shows anterior throat supple without palpable lymphadenopathy noted. Swallow reflex symmetrical. CHEST: Shows normal with inspection. Breath sounds clear to auscultation bilaterally. HEART: Shows S1 and S2 clear. No murmurs auscultated. ABDOMEN: Obese, soft, nontender and nondistended. No palpable organomegaly is noted. No rebound or guarding demonstrated. BACK: Shows spine grossly in the midline. Normal appearing thoracic kyphosis and cervical lordotic curvature as well as lumbar lordotic curvature is slightly flattened. Paraspinous muscle shows symmetrical on inspection of the cervical distribution, very firm rope-like musculature consistent with trigger point areas muscles in the superior, medial and inferior aspect of the cervical paraspinous musculature bilaterally, slightly worse on the right than the left and more tender with palpation, very tender in the trapezius muscles, more right than left, again symmetrical with rope-like musculature palpable bilaterally as well. This is true into the superior aspect of the thoracic paraspinous musculature in the rhomboid distribution with more discernible rope-like musculature, very firm, tender without radiation. Lumbar paraspinous musculature shows symmetrical on inspection with palpation, some moderate tenderness again with moderate areas of rope-like musculature, very firm and tender with the consistency of trigger point areas of musculature in the lumbar, bilateral paraspinous muscles also. EXTREMITIES: The patient's upper extremities show deep tendon reflexes 2+ in the biceps, triceps tendons. Motor exam is strong with facility maintenance worker strength rated at 5/5 as is bicep and tricep flexion. Lower extremities show deep tendon reflexes 2+ in the patellar, 1+ tendo-calcaneus tendons. Motor exam is strong with 5/5 dorsiflexion and extension. Peripheral pulses are 2+ radial and 1+ posterior tibial. Options were discussed with the patient. The patient's old chart was reviewed as well as his current medication regimen updated. Current review of systems updated today as well. We will proceed with trigger point injections of the aforementioned musculature. Risks were again discussed including, but not limited to bleeding, infection, possibility of intravascular injection sequelae, spread of local anesthetic and numbness, side effects of steroid medication, pneumothorax as well as poor results regarding pain control. The patient understands and wished to proceed. The patient will return to the clinic in approximately 2 weeks for followup, was counseled as to return appointment, activity level and side effects to be aware of. DIAGNOSIS: Myofascial pain. PROCEDURE: Trigger point injections, bilateral cervical paraspinous musculature, bilateral trapezius musculature, bilateral thoracic paraspinous musculature and bilateral lumbar paraspinous musculature under sterile prep and drape using local anesthetic. MEDICATION INJECTED: A total of 14 mL of 0.25% bupivacaine after negative aspiration at each injection site and a total of 40 mg Depo-Medrol. CONDITION AT DISCHARGE: Stable. The patient tolerated the procedure well and had no complications. WAYNE MARTIN MD DR: NI/rebecca JOB#: [id number] / [id number]
== END | disposition home or self-care (01) ==
LOC: PNCL 07:40
PROVIDERS: ATTEND Anesthesiology
DX: M79.18 Myalgia, other site (principal); M51.16 Intervertebral disc disorders with radiculopathy, lumbar region; M50.10 Cervical disc disorder with radiculopathy, unspecified cervical region; Z88.0 Allergy status to penicillin
CPT/HCPCS: 20553; J1030; J3490

== ENCOUNTER → 2018-08-24 | Outpatient (CLI) | payer OTHER ==
[~2018-08-24] MED LIST changes: +BUPIVACAINE MPF 0.25% 10 ML VIAL. ONE; -BUPIVACAINE MPF 0.25% 30 ML VIAL. ONE
--- NOTE | 2018-08-24 15:11 | PAIN ---
DATE OF SERVICE: 08/24/2018 PROGRESS NOTE FOR PAIN CLINIC DIAGNOSES: 1. Lumbar radiculopathy with lumbar degenerative disk disease. 2. Cervical radiculopathy with cervical degenerative disk disease. 3. Myofascial pain. HISTORY OF PRESENT ILLNESS: The patient is a 52-year-old male who returns for followup status post trigger point injections as well as lumbar epidural steroid injections, most recently, the patient did very well with each of these. Again with his lumbar epidural steroid injection, he had about 80% improvement. His last one was 06/18/2018. He had some trigger point injections about once a month for the last 2 months. This has been about 2 weeks ago, on 08/10/2018. He did very well with these as well, reporting about a 60% improvement after the last injections. The patient reports no new motor or sensory deficits or other complaints, still pain in the base of the neck, shoulders, upper back, mid back, low back, mostly in the low back associated with some radiation now reportedly again going into the left lower extremity in the lateral anterior thigh, anterior medial thigh, medial lower leg as well and into the knee. The patient reports his pain is a 10 on a scale of 10 at its worst, 6 on average, 6 at its least and is 6 today. The patient reports it is sharp, dull, tight, shooting, constant, severe, unbearable also in the base of the neck and shoulders, more in the neck and shoulders as well as the mid back, upper back and the low back. The patient reports the mornings are worse. When he gets moving around, it does seem to decrease his pain. Usually, it does not awaken him from sleep, however. The patient reports no new motor or sensory deficits, no bowel or bladder incontinence. PHYSICAL EXAMINATION: VITAL SIGNS: The patient's blood pressure 121/82, pulse 74, respirations 18, temperature 98.2 degrees Fahrenheit, height is 6 feet, weight is 220 pounds. GENERAL: The patient is awake, alert, oriented, appropriate, very pleasant demeanor. HEENT: Shows normocephalic, atraumatic. Extraocular muscles are intact and symmetrical. Oral cavity: Mucous membranes are moist and pink. Dentition is intact. NECK: Shows anterior throat supple without palpable lymphadenopathy noted. Swallow reflex symmetrical. CHEST: Shows normal on inspection. Breath sounds clear to auscultation bilaterally. HEART: Shows S1, S2 clear. No murmurs auscultated. ABDOMEN: Soft, nontender, nondistended. No palpable organomegaly is noted. No rebound or guarding demonstrated. BACK: The patient's back shows spine grossly in the midline, normal appearing thoracic kyphosis and lumbar lordotic curvature and cervical lordotic curvature. Paraspinous muscle shows symmetrical, but with palpation shows some very firm rope-like musculature throughout the middle and lower distribution of the cervical paraspinous musculature, trapezius bilaterally as well as the paraspinous muscles in the thoracic and lumbar distribution as on previous exam slightly more on the left than the right in the lumbar distribution, but without radiation, very firm rope-like musculature consistent with trigger point areas of muscle in all these regions. The patient does show good rotational motion of cervical spine, both laterally as well as extension and flexion lumbar spine as well with good rotation 10 degrees, right and left lateral as well as extension 10 degrees, forward flexion 45 degrees without significant disruption or pain. EXTREMITIES: The patient's extremities show upper extremity deep tendon reflexes 2+ in the biceps, triceps tendons. Motor exam is strong with tobacco sweeper strength rated 5/5. Peripheral pulses are 2+ in radial distribution. Lower extremities show deep tendon reflexes 2+patellar, 1+ tendo-calcaneus tendons. Motor exam is strong with 5/5 dorsiflexion, extension. Peripheral pulses are 1+ posterior tibia. No peripheral edema is noted. PLAN: Options were discussed with the patient. The patient's old chart was reviewed as his current medication regimen updated. Current review of systems updated today as well. We will proceed with trigger point injections of the aforementioned musculature. Risks were again discussed including, but not limited to bleeding, infection, possibility of intravascular injection sequelae, pneumothorax, side effects of steroid medication, spread of local anesthetic and numbness as well as poor results regarding pain control. The patient understands and wished to proceed. The patient will return to clinic in approximately 2 weeks for followup, was counseled on return appointment, activity level and side effects to be aware of. DIAGNOSIS: Myofascial pain. PROCEDURE: Trigger point injections, bilateral cervical paraspinous musculature, bilateral trapezius musculature, bilateral thoracic paraspinous musculature and bilateral lumbar paraspinous musculature under sterile prep and drape using local anesthetic. MEDICATION INJECTED: A total of 40 mg Depo-Medrol plus total of 14 mL of 0.25% bupivacaine after negative aspiration at each injection site. CONDITION AT DISCHARGE: Stable. The patient tolerated the procedure well, had no complications. WAYNE MARTIN MD DR: NI/rebecca JOB#: [id number] / [id number]
== END | disposition home or self-care (01) ==
LOC: PNCL 07:37
PROVIDERS: ATTEND Anesthesiology
DX: M79.18 Myalgia, other site (principal); M51.16 Intervertebral disc disorders with radiculopathy, lumbar region; M50.10 Cervical disc disorder with radiculopathy, unspecified cervical region; Z88.0 Allergy status to penicillin
CPT/HCPCS: 20553; J1030; J3490

== ENCOUNTER → 2018-09-07 | Outpatient (CLI) | payer OTHER ==
--- NOTE | 2018-09-07 18:35 | PAIN ---
DATE OF SERVICE: 09/07/2018 DIAGNOSES: 1. Cervical radiculopathy with cervical degenerative disk disease. 2. Lumbar radiculopathy with lumbar degenerative disk disease. 3. Myofascial pain. HISTORY OF PRESENT ILLNESS: The patient is a 52-year-old male who returns for followup status post trigger point injections as well as lumbar and cervical epidural steroid injections. The patient reports doing fairly well. He had trigger point injections on his last visit, which was 08/10/2018. The patient did very well with this, reports about 75% improvement. His headaches have been less and increase with movement, still has some stiffness and rigidity and spasms in the neck and shoulders, upper back, mid back and low back, but doing much better. The patient reports he has been increasing his activity at work as well as at home, distance walking, doing better with sleeping. He has changed to a more firm mattress, which seems to help his low back as well. The patient reports his pain now is mainly in the base of the neck and shoulders as well as the upper and mid back region at 8 on a scale of 10 at its worst, 6 on average and a 5 at its least over the past week and is a 6 today. The patient reports it is aching, dull, shooting, constant spasm, stabbing and cramping at times. The patient reports no new motor or sensory deficits, no new bowel or bladder incontinence or other complaints. PHYSICAL EXAMINATION: VITAL SIGNS: The patient's blood pressure 121/82, pulse 62, respirations 18, temperature 98.0 degrees Fahrenheit, height is 6 feet, weight is 218 pounds. GENERAL: The patient is awake, alert, oriented, appropriate, very pleasant demeanor. HEENT: Head is normocephalic, atraumatic. Extraocular movements are intact, symmetrical. Oral cavity: Mucous membranes moist and pink. Dentition is intact. NECK: Shows anterior throat supple without palpable lymphadenopathy noted. Swallow reflex is symmetrical. CHEST: Shows normal on inspection. Breath sounds are clear to auscultation bilaterally. HEART: Shows S1, S2 clear. No murmurs auscultated. ABDOMEN: Soft, nontender, nondistended. No palpable organomegaly is noted. No rebound or guarding demonstrated. BACK: Shows spine grossly in the midline. Cervical paraspinous musculature shows symmetrical on inspection with palpation shows some very firm rope-like musculature, very tender to the touch, consistent with trigger point areas of musculature bilaterally. This is true into the superior medial and lateral trapezius, slightly more tender on the left than the right, but without specific radiation, but very firm rope-like musculature consistent with trigger point areas of muscles bilaterally. This is true into the rhomboid distribution thoracic paraspinous musculature as well as into the bilateral lumbar paraspinous muscles with very firm rope-like musculature as well, again without specific radiation, but very firm and tender with direct palpation in the muscles consistent with trigger point areas of musculature. EXTREMITIES: The patient's lower extremities show deep tendon reflexes at 2+ in the patellar, 1+ tendo-calcaneus tendons. Motor exam is strong with 5/5 dorsiflexion and extension. Upper extremities show deep tendon reflexes 2+ bilaterally with biceps and triceps tendons. Hydrogeologist strength is strong at 5/5 as is bicep and tricep flexion bilaterally. Peripheral pulses are 2+ radial, 1+ posterior tibia. No peripheral edema is noted. Options were discussed with the patient. The patient's old chart was reviewed as his current medication regimen and updated. Current review of systems is updated today as well and we will proceed with trigger point injections of the identified musculature. Risks were again discussed including, but not limited to bleeding, infection, possibility of intravascular injection sequelae, spread of local anesthetic and numbness, pneumothorax, side effects of steroid medication and poor results regarding pain control. The patient understands and wished to proceed. The patient will return to the clinic in approximately two weeks for followup, was counseled on return appointment, activity level and side effects to be aware of. DIAGNOSIS: Myofascial pain. PROCEDURE: Trigger point injections, bilateral cervical paraspinous musculature, bilateral trapezius musculature, bilateral thoracic paraspinous musculature, bilateral lumbar paraspinous musculature under sterile prep and drape using local anesthetic. MEDICATION INJECTED: A total of 19 mL of 0.25% bupivacaine and total of 40 mg Depo-Medrol and negative aspiration at each injection site. CONDITION AT DISCHARGE: Stable. The patient tolerated procedure well, had no complications. WAYNE MARTIN MD DR: NI/rebecca JOB#: [id number] / [id number]
== END | disposition home or self-care (01) ==
LOC: PNCL 07:37
PROVIDERS: ATTEND Anesthesiology
DX: M79.18 Myalgia, other site (principal); M51.16 Intervertebral disc disorders with radiculopathy, lumbar region; M50.10 Cervical disc disorder with radiculopathy, unspecified cervical region; Z88.0 Allergy status to penicillin
CPT/HCPCS: 20553; J1030; J3490

== ENCOUNTER → 2018-09-21 | Outpatient (CLI) | payer OTHER ==
--- NOTE | 2018-09-21 09:48 | PAIN ---
DATE OF SERVICE: 09/21/2018 DIAGNOSES: 1. Cervical radiculopathy with cervical degenerative disk disease. 2. Lumbar radiculopathy with lumbar degenerative disk disease. 3. Myofascial pain. HISTORY OF PRESENT ILLNESS: The patient is a 52-year-old male who returns for followup status post both cervical and lumbar epidural steroid injections and trigger point injections. The patient has done very well with these, lasting about 2 weeks ago, did very well with about a 90% improvement in the neck and about 75% improvement in his back after injection. The patient reports he was increasing his activity at his was doing some activity over the last weekend with the pain beginning to return now, mainly in the base of the neck, shoulders, upper back and into the low back, but the mid back is doing much better. The patient reports his pain is an 8 on a scale of 10 at its worst over the past week, 6 on average, 5 at its least, and is a 5 today. The patient reports it is aching, dull, shooting at times, sometimes radiating into the lower extremities as well as the neck and shoulders and the arms, mostly in the base of the neck, upper back, spastic and tight feeling as well as the low back, which is becoming more and more tight. The patient reports no new motor or sensory deficits. No new bowel or bladder incontinence or other complaints. PHYSICAL EXAMINATION: VITAL SIGNS: The patient's blood pressure is 125/85, pulse 71, respirations are 16, temperature 98.2 degrees Fahrenheit, height is 6 feet 0 inches, weight is 217 pounds. GENERAL: The patient is awake, alert, oriented, appropriate, very pleasant demeanor. HEENT: Shows normocephalic, atraumatic. Extraocular movements are intact and symmetrical. Oral cavity: Mucous membranes moist and pink. Dentition is intact. NECK: Shows anterior throat supple. CHEST: Shows normal on inspection. Breath sounds are clear to auscultation bilaterally. HEART: Shows S1, S2 clear. ABDOMEN: Soft, nontender, nondistended. BACK: Shows spine grossly in the midline. Cervical paraspinous muscle shows symmetrical on inspection. On palpation shows some moderate tenderness and very firm rope-like musculature in the middle and lower distribution of the cervical paraspinous muscles, also into the trapezius muscles, worse on the left than the right, but very firm rope-like musculature consistent with trigger point areas of muscles bilaterally and is true into rhomboid distribution as well as the upper and mid thoracic distribution. Lower thoracic distribution is not as tender as on previous exam without specific trigger points; however, the lumbar distribution shows symmetrical paraspinous musculature and on palpation shows a very firm rope-like musculature bilaterally, more in the lower distribution of the left than the right lumbar paraspinous muscles, but very firm rope-like musculature without radiation consistent with trigger point areas of muscle into the ric-sacral region as well bilaterally. EXTREMITIES: The patient's upper extremities show deep tendon reflexes 2+ in the biceps and triceps tendons. Institution Director strength is 5/5 with bicep and tricep flexion 5/5 as well. Peripheral pulses are 2+ radial distribution. Lower extremities show deep tendon reflexes 1+ in the patellar tendons. Motor exam is strong with 5/5 dorsiflexion, extension and equal. Peripheral pulses are 1+ posterior tibial. No peripheral edema is noted in any of the extremities. Options were discussed with the patient. The patient's old chart was reviewed as was his current medication regimen updated. Current review of systems is updated today as well. We will proceed with trigger point injections of the identified musculature. Risks were again discussed including, but not limited to bleeding, infection, possibility of intravascular injection sequelae, spread of local anesthetic and numbness, pneumothorax, side effects of steroid medication and poor results regarding pain control. The patient understands and wished to proceed. The patient will return to the clinic in approximately 2 weeks for followup, was counseled on return appointment, activity level and side effects to be aware of. DIAGNOSIS: Myofascial pain. PROCEDURE: Trigger point injections, bilateral cervical paraspinous musculature, bilateral trapezius musculature, bilateral thoracic paraspinous musculature, bilateral lumbar paraspinous musculature under sterile prep and drape using local anesthetic. MEDICATION INJECTED: A total of 40 mg Depo-Medrol and total of 15 mL of 0.25% bupivacaine after negative aspiration at each injection site. CONDITION AT DISCHARGE: Stable. The patient tolerated the procedure well, had no complications. WAYNE MARTIN MD DR: NI/rebecca JOB#: [id number] / [id number]
== END | disposition home or self-care (01) ==
LOC: PNCL 07:39
PROVIDERS: ATTEND Anesthesiology
DX: M79.18 Myalgia, other site (principal); M51.16 Intervertebral disc disorders with radiculopathy, lumbar region; M50.10 Cervical disc disorder with radiculopathy, unspecified cervical region; Z88.0 Allergy status to penicillin
CPT/HCPCS: 20553; J1030; J3490

== ENCOUNTER → 2018-10-05 | Outpatient (CLI) | payer OTHER ==
[~2018-10-05] MED LIST changes: -methylPREDNISolone ACETATE 40 MG/ML VIAL. ONE
--- NOTE | 2018-10-05 19:38 | PAIN ---
DATE OF SERVICE: 10/05/2018 DIAGNOSES: 1. Cervical radiculopathy with cervical degenerative disk disease. 2. Lumbar radiculopathy with lumbar degenerative disk disease. 3. Myofascial pain. HISTORY OF PRESENT ILLNESS: The patient is a 52-year-old male who returns for followup status post trigger point injections, last seen 09/21/2018. The patient did very well with about 60% improvement in the base of the neck, shoulders, upper back, mid back and low back. The patient reports he has been increasing activity, they are doing some [employer] projects at home as well as doing some work on his [employer] house and he has been traveling quite a bit and working quite a bit as well as increased activity lately has been dealing with greater ease and comfort over the past week or so, the pain is beginning to return base of neck and shoulder, specifically in the low back, more on the left than the right shoulder as well as the low back. The patient reports pain is a 9 on a scale of 10 at its worst, 7 on average, 6 at its least over the past week and is a 6 today. The patient reports it is aching and sharp type shooting, stabbing at times, radiating into the lower extremities occasionally and across the low back. The patient reports no new motor or sensory deficits, no new bowel or bladder incontinence or other complaints. PHYSICAL EXAMINATION: VITAL SIGNS: The patient's blood pressure 132/93, pulse 70, respirations are 18, temperature 98.4 degrees Fahrenheit, height is 6 feet, weight is 217 pounds. GENERAL: The patient is awake, alert, oriented, appropriate, very pleasant demeanor. HEENT: Head shows normocephalic, atraumatic. Extraocular movements intact and symmetrical. Oral cavity: Mucous membranes are moist and pink. Dentition is intact. NECK: Shows anterior throat supple without palpable lymphadenopathy noted. Neck shows full rotation of the cervical spine, both laterally as well as extension and flexion without difficulty. CHEST: Shows normal with inspection. Breath sounds clear to auscultation bilaterally. HEART: Shows S1, S2 clear. No murmurs auscultated. ABDOMEN: Soft, nontender, nondistended. BACK: Shows spine grossly in the midline. Cervical paraspinous muscle shows symmetrical on inspection with normal cervical lordotic curvature and is normal thoracic kyphotic curvature and lumbar lordotic curvature. On inspection the paraspinous musculature of the cervical distribution is symmetrical, with palpation shows some moderate tenderness and very firm rope-like musculature in the inferior aspect of the cervical paraspinous muscles bilaterally, worse on the left than the right, also into the superior medial trapezius with very firm rope-like musculature consistent with trigger point areas of muscle bilaterally, again more numerous and more tender on the left side, but without radiation. This is present with her trigger point areas of very firm rope-like musculature in the lumbar distribution of the thoracic paraspinous muscles and most significantly in the lower left lumbar paraspinous musculature, very firm palpation and tenderness significantly more on the left than the right inferior aspect of the paraspinous muscles, again present bilaterally, but very firm and rope-like, very tender, but without radiation. The patient has good rotational motion of both the thoracic and lumbar spine without significant increase in pain with extension, flexion, right or left lateral rotation. EXTREMITIES: Upper extremity deep tendon reflexes 2+ in the biceps, triceps tendons. Motor exam is strong with title i teacher strength rated at 5/5 and equal. Lower extremities show deep tendon reflexes 1+ in the patellar and tendo calcaneus tendons. Motor exam is strong with 5/5 dorsiflexion and extension. Peripheral pulses are 2+ radial, 1+ posterior tibial. No peripheral edema is noted bilaterally. Options were discussed with the patient. The patient's old chart was reviewed as his current medication regimen updated. Current review of systems [facility]. We will proceed with trigger point injections of the identified musculature. Risks were discussed including but not limited to bleeding, infection, possibility of intravascular injection sequelae, spread of local anesthetic and numbness, pneumothorax, side effects of steroid medication and poor results regarding pain control. The patient understands and wished to proceed. The patient will return to clinic in approximately 2 weeks for followup, was counseled on return appointment, activity level, side effects to be aware of. DIAGNOSIS: Myofascial pain. PROCEDURE: Trigger point injections, bilateral cervical paraspinous musculature, bilateral trapezius musculature, bilateral thoracic paraspinous musculature, bilateral lumbar paraspinous musculature in under sterile prep and drape using local anesthetic. MEDICATION INJECTED: A total of 17 mL of 0.25% bupivacaine with negative aspiration at each injection site. CONDITION AT DISCHARGE: Stable. The patient tolerated procedure well, had no complications. WAYNE MARTIN MD DR: NI/rebecca JOB#: [id number] / [id number]
== END ==
LOC: PNCL 07:44
PROVIDERS: ATTEND Anesthesiology
DX: M79.18 Myalgia, other site (principal); M51.16 Intervertebral disc disorders with radiculopathy, lumbar region; M50.10 Cervical disc disorder with radiculopathy, unspecified cervical region
CPT/HCPCS: 20553; J3490

== ENCOUNTER → 2018-10-28 | Outpatient (CLI) | payer OTHER ==
[~2018-10-28] MED LIST changes: -BUPIVACAINE MPF 0.25% 10 ML VIAL. ONE; +IOHEXOL 180 MG/ML 10 ML VIAL. ONE; -PANT40TA3 PO; -PANT40TA5 PO; +PANT40TA77 PO; +methylPREDNISolone ACETATE 40 MG/ML VIAL. ONE; +methylPREDNISolone ACETATE 80 MG/ML VIAL. ONE
--- NOTE | 2018-10-28 11:20 | PAIN ---
DATE OF SERVICE: 10/28/2018 DIAGNOSES: 1. Cervical radiculopathy with cervical degenerative disk disease. 2. Lumbar radiculopathy with lumbar degenerative disk disease. 3. Myofascial pain. HISTORY OF PRESENT ILLNESS: The patient is a 53-year-old male who returns for followup status post trigger point injections as well as lumbar epidural steroid injection and cervical injection. The patient reports he has done very well with his trigger points within about a month ago. The patient returns with significant pain in the low back and left lower extremity, radiating into the posterior gluteus, posterior lateral thigh, lateral anterior thigh on the left side, the medial lower leg, some on the right as well, but mostly on the left side. The patient reports he was working on his vehicle a few days ago with bending, stooping a lot and getting up and down and had some significant pain across the low back into the lower extremities, mostly on the left side as it was previously. The patient reports that he had to stop working on his car immediately and was limping and was bracing his back. The patient reports it has gotten slightly better over the past few days, but still significant in the low back, radiating to left lower extremity. The patient reports it is a 10 on a scale of 10 at its worst in the past week, 8 on average, 8 at its least, and is an 8 today. He reports it is shooting, aching, sharp, burning, stabbing, radiating, becoming more constant, more severe with walking, standing, awakens him from sleep about 2-3 times a night over the past few days. The patient reports no new motor or sensory deficits, no bowel or bladder incontinence. PHYSICAL EXAMINATION: VITAL SIGNS: The patient's blood pressure 150/110, pulse 76, respirations 16, temperature 98.4 degrees Fahrenheit. Height 6 feet, weight is 210 pounds. GENERAL: The patient is awake, alert, oriented, appropriate, very pleasant demeanor. HEENT: Head is normocephalic, atraumatic. Extraocular movements intact and symmetrical. Oral cavity: Mucous membranes are moist and pink. Dentition is intact. NECK: Shows anterior throat supple without palpable lymphadenopathy noted. Swallow reflex symmetrical. CHEST: Shows normal on inspection. Breath sounds are clear bilaterally. HEART: Shows S1, S2 clear. ABDOMEN: Soft, nontender, nondistended. BACK: Shows spine grossly in the midline, normal appearing thoracic kyphosis and lumbar lordotic curvature. Lumbar paraspinous muscle shows symmetrical on inspection, on palpation shows some moderate tenderness diffusely in the low lumbar distribution bilaterally, but good rotational motion both laterally as well as extension and flexion without difficulty. EXTREMITIES: Lower extremities show deep tendon reflexes 2+ in patellar and 1+ tendo calcaneus tendons. Motor exam is strong with 5/5 dorsiflexion, extension, quadriceps and hamstring flexion and symmetrical. Peripheral pulses are 1+ posterior tibia. No peripheral edema is noted. Options were discussed with the patient. The patient's old chart was reviewed as his current medication regimen updated. Current review of systems updated today as well. We will proceed with a lumbar epidural steroid injection today with fluoroscopic guidance. Risks were again discussed including, but not limited to bleeding, infection, possibility of epidural hematoma, subsequent neurological compromise, dural puncture headaches, spinal cord and/or nerve damage, side effects of steroid medication and poor results regarding pain control. The patient understands and wished to proceed. The patient will return to clinic in approximately 2 weeks for followup, was counseled on return appointment, activity level and side effects to be aware of. DIAGNOSES: Lumbar radiculopathy with lumbar degenerative disk disease. PROCEDURE: Lumbar epidural steroid injection, translaminar approach at L4-L5 level using C-arm fluoroscopic guidance under sterile prep and drape using local anesthetic. MEDICATION INJECTED: A total of 120 mg Depo-Medrol plus 10 mL of preservative-free normal saline and 2 mL of Isovue for contrast. CONDITION AT DISCHARGE: Stable. The patient tolerated the procedure well, had no complications. WAYNE MARTIN MD DR: NI/rebecca JOB#: [id number] / [id number]
== END ==
LOC: PNCL 07:27
PROVIDERS: ATTEND Anesthesiology
DX: M51.16 Intervertebral disc disorders with radiculopathy, lumbar region (principal); M50.120 Mid-cervical disc disorder, unspecified level; M79.18 Myalgia, other site
CPT/HCPCS: 62323; J1030; J1040; Q9965

== ENCOUNTER → 2018-12-02 | Outpatient (CLI) | payer OTHER ==
[~2018-12-02] MED LIST changes: +BUPIVACAINE MPF 0.25% 10 ML VIAL. ONE; -IOHEXOL 180 MG/ML 10 ML VIAL. ONE; -TIZA4TAB PO; +TIZA4TAB2 PO; -methylPREDNISolone ACETATE 80 MG/ML VIAL. ONE
--- NOTE | 2018-12-02 09:47 | PAIN ---
DATE OF SERVICE: 12/02/2018 PROGRESS NOTE FOR PAIN CLINIC DIAGNOSES: 1. Myofascial pain. 2. Lumbar radiculopathy with lumbar degenerative disk disease. 3. Cervical radiculopathy with cervical degenerative disk disease. HISTORY OF PRESENT ILLNESS: The patient is a 53-year-old male who returns for followup status post lumbar epidural steroid injection x 1 from 10/28/2018. The patient did very well with this, reports about 50% improvement until he bent over about 2 weeks ago and felt a large pop and audibly heard a pop in his low back, which his reportedly heard across the room as well. The patient reports the pain is increased in the left side in the low back since that time rated a 10 on a scale of 10 at its worst, 8 on average, 8 at its least and is an 8 today. The patient reports it is stabbing, sharp, shooting, radiating, constant, severe, unbearable with walking, standing, changing positions, awakening him from sleep at night. The patient reports it is difficult with bending and flexing, although it gotten better since that happened a few weeks ago. The pain is still significant. The patient reports no new motor or sensory deficits, no new bowel or bladder incontinence. The patient was hospitalized for about a week with dehydration over the past month as well, but this has resolved. PHYSICAL EXAMINATION: VITAL SIGNS: The patient's blood pressure 110/68, pulse 60, respirations 16, temperature 98.0 degrees Fahrenheit, height 6 feet, weight is 212 pounds. GENERAL: The patient is awake, alert, oriented, appropriate, very pleasant demeanor. HEENT: Shows normocephalic, atraumatic. Extraocular movements are intact and symmetrical. Oral cavity: Mucous membranes moist and pink. Dentition is intact. NECK: Shows anterior throat supple without palpable lymphadenopathy noted. Swallow reflex symmetrical. CHEST: Shows normal on inspection. Breath sounds are clear to auscultation bilaterally. HEART: Shows S1, S2 clear. No murmurs auscultated. ABDOMEN: Soft, nontender, nondistended. BACK: Shows spine grossly in the midline. Normal-appearing cervical lordotic curvature. Some slight increased thoracic kyphotic curvature, mild flattening of the lumbar lordotic curvature. Paraspinous musculature in the cervical distribution shows very firm rope-like musculature in the inferior aspect of the cervical paraspinous muscles, also into the superior medial and lateral trapezius and the middle trapezius medially, superiorly with very firm rope-like muscles consistent with trigger point areas of musculature. This is present in the bilateral thoracic paraspinous musculature as well, somewhat worse on the left than the right, but very firm, very tender without radiation. Lumbar paraspinous musculature on the left is exquisitely tender with the patient jumping away from the examining hand, even moderate palpation in the middle and lower distribution of the left paraspinous musculature in the lumbar distribution, right side is tender as well to a moderate extent with rope-like musculature consistent with trigger point areas in both areas of the lumbar spine, left and right as well. EXTREMITIES: The patient's lower extremities show deep tendon reflexes, 1+ in the patellar and tendo calcaneus tendons. Motor exam is strong with 5/5 dorsiflexion and extension. Upper extremities show deep tendon reflexes 2+ in the biceps and triceps tendons. Motor exam is strong with magistrate strength rated at 5/5 and equal. Options were discussed with the patient. The patient's old chart was reviewed as his current medication regimen updated. Current review of systems updated today as well. We will proceed with trigger point injections of the identified musculature. Risks were again discussed including, but not limited to bleeding, infection, possibility of intravascular injection sequelae, spread of local anesthetic and numbness, pneumothorax, side effects of steroid medication and poor results regarding pain control. The patient understands and wished to proceed. The patient will return to clinic in approximately 2 weeks for followup. He was counseled on return appointment, activity level and side effects to be aware of. DIAGNOSIS: Myofascial pain. PROCEDURE: Trigger point injections, bilateral cervical paraspinous musculature, bilateral trapezius musculature, bilateral thoracic paraspinous musculature and bilateral lumbar paraspinous musculature under sterile prep and drape using local anesthetic. MEDICATION INJECTED: A total of 14 mL of 0.25% bupivacaine after negative aspiration at each injection site with total of 40 mg Depo-Medrol. CONDITION AT DISCHARGE: Stable. The patient tolerated procedure well, had no complications. WAYNE MARTIN MD DR: NI/rebecca JOB#: [id number] / [id number]
== END ==
LOC: PNCL 07:57
PROVIDERS: ATTEND Anesthesiology
DX: M79.18 Myalgia, other site (principal); M51.16 Intervertebral disc disorders with radiculopathy, lumbar region; M50.10 Cervical disc disorder with radiculopathy, unspecified cervical region
CPT/HCPCS: 20553; J1030; J3490

== ENCOUNTER → 2018-12-16 | Outpatient (CLI) | payer OTHER ==
--- NOTE | 2018-12-16 08:53 | PN ---
DATE: 12/16/2018 PROGRESS NOTE FOR PAIN CLINIC DIAGNOSES: 1. Cervical radiculopathy with cervical degenerative disk disease. 2. Lumbar radiculopathy with lumbar degenerative disk disease. 3. Myofascial pain. HISTORY OF PRESENT ILLNESS: The patient is a 53-year-old male who returns for followup status post lumbar epidural steroid injection as well as trigger point injections. The patient has been doing very well with trigger point injections and the lumbar injections as well as epidurals most recently on 10/28/2018. The patient did very well with about 50% improvement overall. The patient reports that the pain in his neck and shoulders is beginning to increase with spasticity and tightness sensation, also in the low back and mid back. The patient reports it is a 9 on a scale of 10 at its worst in the past week, 8 on average, 7 at its least worse with activity, worse with walking, standing on his feet for longer periods during the day working, but he has been increasing his activities at work as well as household activities with greater ease and comfort after the injections. The patient reports have been sleeping better, better with lying down or sitting and has been sleeping without disruption. The patient reports it is an aching pain, sharp, can be shooting, stabbing, constant in the base of the neck and shoulder as well as the mid back, upper back and low back. The patient reports no new motor or sensory deficits, no new bowel or bladder incontinence. PHYSICAL EXAMINATION: VITAL SIGNS: The patient's blood pressure 117/79, pulse 59, respirations 16, temperature 97.9 degrees Fahrenheit, height 6 feet 0 inches, weight is 209 pounds. GENERAL: The patient is awake, alert, oriented, appropriate, very pleasant demeanor. HEENT: Shows normocephalic, atraumatic. Extraocular movements are intact and symmetrical. Oral cavity: Mucous membranes moist and pink. Dentition is intact. NECK: Shows anterior throat supple without palpable lymphadenopathy noted. Swallow reflex symmetrical. CHEST: Shows normal on inspection. Breath sounds clear to auscultation bilaterally. HEART: Shows S1, S2 clear. No murmurs auscultated. ABDOMEN: Soft, nontender, nondistended. No palpable organomegaly is noted. No rebound or guarding demonstrated. BACK: Shows spine grossly in the midline. Normal appearing cervical lordotic curvature, thoracic kyphotic curvature slightly increased and some slight flattening of lumbar lordotic curvature with palpation shows multiple areas of very firm rope-like musculature in the cervical paraspinous musculature, slightly more on the left than the right. This is true into the superior, medial and lateral trapezius, again more on the left than the right, very firm rope-like muscles, very tender with palpation. The patient has full rotational motion of the cervical spine; however, both laterally as well as extension and flexion without significant increase in pain. The patient's lower back and mid back shows thoracic paraspinous musculature as well as lumbar paraspinous muscles with very firm rope-like muscles, again worse on the left than the right in the lumbar distribution as well, but without radiation. The patient has good rotation of the lumbar spine, both laterally as well as extension and flexion without significant limitation. EXTREMITIES: The patient's upper extremities show deep tendon reflexes at 2+ in the biceps and triceps tendons. Lower extremities are 1+ patellar and tendo calcaneus tendons. Motor exam is strong with radio interference investigator strength, bicep and tricep flexion as well as dorsiflexion, extension, quadriceps and hamstring flexion all 5/5 and equal. Peripheral pulses are 2+ radial, 1+ posterior tibial. Options were discussed with the patient. The patient's old chart was reviewed as his current medication regimen updated. Current review of systems updated today as well. We will proceed with trigger point injections of the identified musculature. Risks were again discussed including, but not limited to bleeding, infection, possibility of intravascular injection sequelae, spread of local anesthetic and numbness, side effects of steroid medication, pneumothorax as well as poor results regarding pain control. The patient understands and wished to proceed. The patient will return to clinic in approximately 2 weeks for followup. She was counseled on return appointment, activity level and side effects to be aware of. DIAGNOSIS: Myofascial pain. PROCEDURE: Trigger point injections, bilateral cervical paraspinous muscles, bilateral trapezius musculature, bilateral lumbar paraspinous musculature under sterile prep and drape using local anesthetic. MEDICATION INJECTED: A total of 14 mL of 0.25% bupivacaine and 40 mg total Depo-Medrol after negative aspiration at each injection site. CONDITION AT DISCHARGE: Stable. The patient tolerated the procedure well, had no complications. WAYNE MARTIN MD DR: Cyndy JOB#: [id number] / [id number]
== END ==
LOC: PNCL 07:35
PROVIDERS: ATTEND Anesthesiology
DX: M79.18 Myalgia, other site (principal); M51.16 Intervertebral disc disorders with radiculopathy, lumbar region; M50.10 Cervical disc disorder with radiculopathy, unspecified cervical region
CPT/HCPCS: 20553; J1030; J3490

== ENCOUNTER → 2019-01-06 | Outpatient (CLI) | payer OTHER ==
[~2019-01-06] MED LIST changes: +DEXL60CA2 PO; +DICY10CA3 PO; +LIPA1CAP12 PO; +MAG30ORA2 PO; +ONDA4TAB12 PO; +TRAM50TA PO
--- NOTE | 2019-01-06 08:43 | PAIN ---
DATE OF SERVICE: 01/06/2019 PROGRESS NOTE FOR PAIN CLINIC DIAGNOSES: 1. Cervical radiculopathy with cervical degenerative disk disease. 2. Lumbar radiculopathy with lumbar degenerative disk disease. 3. Myofascial pain. HISTORY OF PRESENT ILLNESS: The patient is a 53-year-old male who returns for followup status post lumbar epidural steroid injection as well as trigger point injections versus most recently seen on 12/16/2018. The patient had trigger point injection, has done very well with about 50% improvement. The patient reports that he is seeing a chiropractor as well with some good manipulation with his neck, which he has been doing quite well with. Also significant decrease in pain after the injections in the low back and left leg or the injections for his low back and left leg with epidural injections. He is quite pleased with his prognosis. The patient reports the pain still in the base of the neck and shoulders, upper back, mid back, low back, rates as 9 on a scale of 10 at its worst in the past week, 7 on average, 6 at its least and is a 7 today. The patient reports no new motor or sensory deficits, awakening him from sleep occasionally, but not every night. The patient reports more stiffness, tugging and pulling, pain in the base of the neck and shoulders as well as the upper back, more than the low back. PHYSICAL EXAMINATION: VITAL SIGNS: The patient's blood pressure 112/76, pulse 73, respirations 16, temperature 97.9 degrees Fahrenheit, height is 6 feet, weight is 212 pounds. GENERAL: The patient is awake, alert, oriented, appropriate, very pleasant demeanor. HEENT: Shows normocephalic, atraumatic. Extraocular movements intact and symmetrical. Oral cavity: Mucous membranes moist and pink. Dentition is intact. NECK: Shows anterior throat supple without palpable lymphadenopathy noted. Swallow reflex symmetrical. CHEST: Shows normal on inspection. Breath sounds clear to auscultation bilaterally. HEART: Shows S1, S2 clear. No murmurs auscultated. ABDOMEN: Soft, nontender, nondistended. No palpable organomegaly is noted. No rebound or guarding demonstrated. BACK: The patient's neck shows very firm rope-like musculature throughout the middle, upper and lower cervical paraspinous musculature, very firm rope-like tenderness consistent with trigger point areas of musculature. This is towards the trapezius as well as somewhat more on the left than the right, but also in the thoracic paraspinous musculature with firm rope-like musculature and tender areas of muscle with trigger point consistency. This is towards the middle and lower thoracic distribution, slightly more on the right than the left, and also in the lumbar paraspinous muscles, which is very firm and tender throughout the upper, middle and lower distribution of paraspinous muscles, very firm rope-like musculature, worse on the left than the right in the lumbar distribution, but present bilaterally without significant radiation. The patient does show good rotational motion of cervical spine, both laterally as well as extension and flexion without significant increase in pain. This is towards lumbar spine as well with good rotation laterally greater than 10 degrees as well as extension and forward flexion without significant limitation. EXTREMITIES: The patient's upper extremities show deep tendon reflexes 2+ in the biceps, triceps tendons. Motor exam is strong with linoleum layer apprentice strength rated at 5/5. Lower extremities show deep tendon reflexes 1+ in the patellar tendons. Motor exam is strong with 5/5 dorsiflexion and extension bilaterally. Peripheral pulses are 2+ radial, 1+ posterior tibial. Options were discussed with the patient. The patient's old chart was reviewed as his current medication regimen updated. Current review of systems updated today as well. We will proceed with trigger point injections of the identified musculature. Risks were again discussed including, but not limited to bleeding, infection, possibility of intravascular injection sequelae, spread of local anesthetic and numbness, pneumothorax, side effects of steroid medication and poor results regarding pain control. The patient understands and wished to proceed. The patient will return to clinic in approximately 2 weeks for followup. She was counselled on return appointment, activity level and side effects to be aware of. DIAGNOSES: Myofascial pain. PROCEDURE: Trigger point injections, bilateral cervical paraspinous musculature, bilateral trapezius musculature, bilateral thoracic paraspinous musculature and bilateral lumbar paraspinous musculature under sterile prep and drape using local anesthetic. MEDICATION INJECTED: The patient received a total of 15 mL of 0.25% bupivacaine after negative aspiration. CONDITION AT DISCHARGE: Stable. The patient tolerated the procedure well, had no complications. WAYNE MARTIN MD DR: NI/rebecca JOB#: [id number] / [id number]
== END ==
LOC: PNCL 07:30
PROVIDERS: ATTEND Anesthesiology
DX: M51.16 Intervertebral disc disorders with radiculopathy, lumbar region (principal); M79.18 Myalgia, other site; M50.10 Cervical disc disorder with radiculopathy, unspecified cervical region
CPT/HCPCS: 20553; J3490; J1030

== ENCOUNTER → 2019-01-13 | Outpatient (CLI) | payer OTHER ==
[~2019-01-13] MED LIST changes: -BUPIVACAINE MPF 0.25% 10 ML VIAL. ONE; -methylPREDNISolone ACETATE 40 MG/ML VIAL. ONE
--- NOTE | 2019-01-13 17:38 | KCIC ---
Thyroid sonogram Clinical indications: Follow-up study COMPARISON: August 06, 2017. FINDINGS: The longitudinal AP and transverse dimensions of the right lobe are 5.7 cm and 1.8 cm and 2.1 cm respectively. The right lobe is homogeneous. The longitudinal and AP and transverse dimensions of left lobe are 5.0 cm and 1.6 cm and 2.2 cm respectively. There is a complex cyst within the lower pole left lobe measuring 12 mm in greatest dimension. Inferior to this is a small nodule with a coarse calcification measuring 7 mm in size. These findings are unchanged. The isthmus is homogeneous and measures 5 mm in thickness. IMPRESSION: Stable left lobe thyroid nodules. Electronically signed by: Donnie Alvarado MD (01/13/2019 5:35 PM) [place] [id number]
== END | disposition home or self-care (01) ==
LOC: KCIC US 08:44
PROVIDERS: ATTEND Otolaryngology
DX: E04.1 Nontoxic single thyroid nodule (principal); F40.240 Claustrophobia
CPT/HCPCS: 76536

== ENCOUNTER → 2019-01-14 | Outpatient (CLI) | payer OTHER ==
[~2019-01-14] MED LIST changes: +GADOTERATE 7.5 MMOL/15ML VIAL. IVP ONE; -NITR0.4T SL; +NITR0.4T24 SL
--- NOTE | 2019-01-14 14:16 | KCIC ---
MRI Brain with and without contrast History: Asymmetrical sensorineural hearing loss, hearing loss bilaterally left greater than right for about 3 years Technique: Multiplanar, multi sequential pre and postcontrast MR imaging was performed of the brain dedicated images of internal auditory canals also obtained. Comparison: May 22, 2018 Findings: There is some motion degradation. There is no evidence of recent infarct or cytotoxic edema. The ventricles, sulci, and cisterns are within normal limits in size and configuration. There is no significant midline shift, intraaxial mass effect, or focal abnormal extra-axial fluid collection. Allowing for motion, there is no new significant signal abnormality of the brain parenchyma. There is no nodular parenchymal or leptomeningeal enhancement. There is preservation of the major intracranial flow-voids at the skull base. The cerebellar tonsils are normal in location. There is no significant abnormality of the pineal gland or pituitary gland. There is patchy mild bilateral ethmoid air cell and anterior sphenoid sinus mucosal thickening. The mastoid air cells are aerated. There is preserved marrow signal of the clivus. There is no nodular enhancement of the cerebellopontine angles or the internal auditory canals. Impression: 1. There is no evidence of recent infarct or abnormal intracranial enhancement. There is no nodular enhancement of the cerebellopontine angles or the internal auditory canals. Electronically signed by: Zac Crook MD (01/14/2019 2:13 PM) [id number]
== END | disposition home or self-care (01) ==
LOC: KCIC MRI 09:27
PROVIDERS: ATTEND Otolaryngology
DX: H90.3 Sensorineural hearing loss, bilateral (principal)
CPT/HCPCS: 70553; A9575

== ENCOUNTER → 2019-01-20 | Outpatient (CLI) | payer OTHER ==
[~2019-01-20] MED LIST changes: +BUPIVACAINE MPF 0.25% 10 ML VIAL. ONE; -GADOTERATE 7.5 MMOL/15ML VIAL. IVP ONE
--- NOTE | 2019-01-20 09:20 | PAIN ---
DATE OF SERVICE: 01/20/2019 PROGRESS NOTE FOR PAIN CLINIC DIAGNOSES: 1. Cervical radiculopathy with cervical degenerative disc disease. 2. Lumbar radiculopathy with lumbar degenerative disc disease. 3. Myofascial pain. HISTORY OF PRESENT ILLNESS: The patient is a 53-year-old male who returns for followup status post trigger point injections approximately 2 weeks ago. The patient reports he did very well with this with about a 75% improvement with some spasticity increasing over the past few days in the base of the neck especially and into the low back. The patient reports it is in the mid back as well, worse with work activities of standing, walking, and changing positions, does not generally awaken him from sleep, better with lying down or sitting. He has been doing increased work at his job as well as yard work at home when he has increased the pain to a moderate extent. He has been doing it more comfortably he reports when he is active. The patient reports it comes and goes in the mid back, upper back, and lower back is significantly painful. The patient describes it as aching, dull, tight, shooting, radiating at times across the back, but not into the extremities. The patient reports at its worst pain is 9 on a scale of 10 over the past week and average is 7 and least is 5, and it has been 7 today. The patient reports no new motor or sensory deficits, no new bowel or bladder incontinence. The patient has been seeking chiropractic help for 3 days a week, which he feels does help as well. PHYSICAL EXAMINATION: VITAL SIGNS: The patient's blood pressure is 129/86, pulse 77, respirations 16, temperature 98.3 degrees Fahrenheit, weight is 215 pounds. GENERAL: The patient is awake, alert, oriented, appropriate, very pleasant demeanor. HEENT: Head shows normocephalic and atraumatic. Extraocular movements are intact and symmetrical. Oral cavity: Mucous membranes moist and pink. Dentition is intact. NECK: Shows anterior throat supple. CHEST: Shows normal on inspection. Breath sounds are clear bilaterally. HEART: Shows S1 and S2 clear. No murmurs auscultated. ABDOMEN: Soft, nontender, nondistended. BACK: Shows spine grossly in the midline. There is some significant tenderness to palpation in the cervical paraspinous musculature, which is symmetrical on inspection, but very firm rope-like musculature in the inferior aspect of the cervical paraspinous musculature, also into the trapezius muscles bilaterally, essentially equal right and left with very firm rope-like musculature consistent with trigger point areas of muscle that also familia into the trapezius muscle in the rhomboid distribution and the thoracic paraspinous muscles to a moderate extent. Lumbar paraspinous muscle shows symmetrical on inspection and with palpation, some very significant tenderness and rope-like musculature, very firm consistent with trigger point areas of muscle once again in the low lumbar distribution bilaterally, essentially equal right and left without radiation. EXTREMITIES: The patient's lower extremities show deep tendon reflexes 1+ in the patellar and tendo calcaneus tendons. Motor exam is strong with 5/5 dorsiflexion, extension, quadriceps, and hamstring flexion. PLAN: Options were discussed with the patient. The patient's old chart was reviewed and his current medication regimen updated. Current review of systems updated today as well. We will proceed with trigger point injections of the identified musculature. Risks were again discussed including, but not limited to bleeding, infection, possibility of intravascular injection sequelae, pneumothorax, side effects of local anesthetic absorption and toxicity as well as poor results regarding pain control. The patient understands and wished to proceed. The patient will return to clinic in approximately 2 weeks for followup. He was counseled on return appointment, activity level, and side effects to be aware of. The patient will continue with chiropractic treatment, also doing stretching and strengthening exercises on his own. We discussed heat and massage techniques as well to the muscles. WAYNE MARTIN MD DR: NI/rebecca JOB#: [id number] / [id number]
== END ==
LOC: PNCL 07:40
PROVIDERS: ATTEND Anesthesiology
DX: M51.16 Intervertebral disc disorders with radiculopathy, lumbar region (principal); M50.10 Cervical disc disorder with radiculopathy, unspecified cervical region; M79.18 Myalgia, other site
CPT/HCPCS: 20553; J3490

== ENCOUNTER → 2019-02-03 | Outpatient (CLI) | payer OTHER ==
--- NOTE | 2019-02-03 08:49 | PAIN ---
DATE OF SERVICE: 02/03/2019 PROGRESS NOTE FOR PAIN CLINIC DIAGNOSES: 1. Cervical radiculopathy with cervical degenerative disk disease. 2. Lumbar radiculopathy with lumbar degenerative disk disease. 3. Myofascial pain. HISTORY OF PRESENT ILLNESS: The patient is a 53-year-old male who returns for followup status post trigger point injections, last seen 01/20. The patient did very well with about 50% improvement overall with the trigger point injections. The patient had previously had lumbar epidural steroid injections as well, most recently 10/28/2018 with about 75% improvement at that time. The patient reports pain is returning now in his low back significantly radiating to posterior gluteus, posterior thighs bilaterally, worse with walking and standing, changing positions, better with sitting or lying down, but still significant pain in the low back and into the lower extremities in a radicular fashion with activity, worse with standing and walking, better with sitting or lying down again, but occasionally awakens him from sleep as well. The patient reports it is in the lateral thighs, posterior thighs, anterior thighs, medial thighs, into the medial lower legs with extended walking or standing. The patient reports also significant tenderness and tightness in the base of the neck, shoulders, upper back, mid back and low back as he has had previously. The patient reports his pain as a 10 on a scale of 10 at its worst over the past week, 7 on average, 6 at its least and is a 7 today. The patient reports it is dull, shooting, stabbing, radiating in the lower extremities, becoming more constant and more severe with activity, walking and standing, waking from sleep only very rarely. The patient reports no new motor or sensory deficits, no new bowel or bladder incontinence or other complaints. PHYSICAL EXAMINATION: VITAL SIGNS: Today, the patient's blood pressure is 129/90, pulse 64, respirations 18, temperature 97.8 degrees Fahrenheit, height 6 feet, weight is 212 pounds. GENERAL: The patient is awake, alert, oriented, appropriate, very pleasant demeanor. HEENT: Shows normocephalic, atraumatic. Extraocular movements are intact and symmetrical. The patient wears eye glasses. Oral cavity shows mucous membranes moist and pink. Dentition is intact. NECK: Shows anterior throat supple without palpable lymphadenopathy noted. Swallow reflex symmetrical. CHEST: Shows normal on inspection. Breath sounds clear to auscultation bilaterally. HEART: Shows S1, S2 clear. No murmurs auscultated. ABDOMEN: Soft, nontender, nondistended. No palpable organomegaly is noted. No rebound or guarding demonstrated. BACK: Shows spine grossly in the midline. Normal appearing thoracic kyphosis, cervical lordotic curvature and some minor flattening of lumbar lordotic curvature. Lumbar paraspinous muscle shows symmetrical on inspection, on palpation shows some moderate tenderness throughout with very firm rope-like musculature in the upper, middle and lower distribution of the paraspinous muscles, more on the left than the right with tenderness. The patient shows 8 trigger point areas as well in the cervical distribution in the superior, medial and inferior aspect of the cervical paraspinous muscles, also into the trapezius musculature bilaterally, somewhat worse on the right than the left, but very firm rope-like musculature, very tender consistent with trigger point areas of musculature bilaterally. This is true into the thoracic paraspinous muscles, more on the right than the left, once again very firm, rope-like tender musculature in this region as well, but without radiation on palpation. EXTREMITIES: The patient's lower extremities show deep tendon reflexes at 1+ in the patellar and tendo calcaneus tendons. Motor exam is strong with 5/5 dorsiflexion, extension, quadriceps and hamstring flexion and symmetrical. Peripheral pulses are 1+ posterior tibia, and no peripheral edema is noted. Options were discussed with the patient. The patient's old chart was reviewed as his current medication regimen updated. Current review of systems updated today as well. We will plan on trigger point injections today. Also, we will have the patient preauthorized for a lumbar epidural steroid injection on his next visit as he has done very well with these in the past and it has been several months since he had an injection. He has done quite well with pain returning now in a radicular fashion at L4-L5 dermatomal distribution in the bilateral lower extremities. We will plan on return for lumbar epidural steroid injection at L4-L5 level after today's visit. DIAGNOSIS: Myofascial pain. PROCEDURE: Trigger point injections bilateral cervical paraspinous musculature, bilateral trapezius musculature, bilateral thoracic paraspinous musculature and bilateral lumbar paraspinous musculature under sterile prep and drape using local anesthetic. MEDICATION INJECTED: A total of 16 mL of 0.25% bupivacaine after negative aspiration at each injection. CONDITION AT DISCHARGE: Stable. The patient tolerated procedure well, had no complications. WAYNE MARTIN MD DR: NI/rebecca JOB#: [id number] / [id number]
== END ==
LOC: PNCL 07:33
PROVIDERS: ATTEND Anesthesiology
DX: M79.18 Myalgia, other site (principal); M51.16 Intervertebral disc disorders with radiculopathy, lumbar region; M50.10 Cervical disc disorder with radiculopathy, unspecified cervical region
CPT/HCPCS: 20553; J3490

== ENCOUNTER → 2019-02-17 | Outpatient (CLI) | payer OTHER ==
[~2019-02-17] MED LIST changes: +methylPREDNISolone ACETATE 40 MG/ML VIAL. ONE
--- NOTE | 2019-02-18 01:10 | PAIN ---
DATE OF SERVICE: 02/17/2019 PROGRESS NOTE FOR PAIN CLINIC DIAGNOSES: 1. Cervical radiculopathy with cervical degenerative disk disease. 2. Lumbar radiculopathy with lumbar degenerative disk disease. 3. Myofascial pain. HISTORY OF PRESENT ILLNESS: The patient is a 53-year-old male who returns for followup status post trigger point injections seen approximately 2 weeks ago. The patient did very well, reports about 50% improvement overall with pain returning now in the base of the neck, shoulders, upper back, mid back, especially in the low back, and left lower extremity. The patient has some significant radiculopathy as well on the left lower extremity at the L4-L5 level with radiating pain in the posterior gluteus, lateral thigh, anterior thigh, medial thigh, and medial lower leg. The patient reports still significant tightness in the low back as well, worse with walking, standing, changing positions, worse at work. After the last injection, he did very well for about a week and then the pain began to return over the past week. The patient reports the pain is radiating, constant, becoming more severe, stabbing, aching, sharp and shooting in the back as well as in the base of the shoulders and neck. The patient reports it is a 10 on a scale of 10 at its worst in the past week, 7 on average, 5 at its least, and is 7 today. The patient reports no new motor or sensory deficits. No new bowel or bladder incontinence or other complaints. PHYSICAL EXAMINATION: VITAL SIGNS: The patient's blood pressure 130/91, pulse 57, respirations 18, temperature 98.0 degrees Fahrenheit, height 6 feet, weight is 208 pounds. GENERAL: The patient is awake, alert, oriented, appropriate, very pleasant demeanor. HEENT: Head shows normocephalic, atraumatic. Extraocular movements are intact and symmetrical. Oral cavity: Mucous membranes moist and pink. Dentition is intact. NECK: Shows anterior throat supple without palpable lymphadenopathy noted. Swallow reflex is symmetrical. CHEST: Shows normal on inspection. Breath sounds are clear to auscultation bilaterally. HEART: Shows S1, S2 clear. No murmurs auscultated. ABDOMEN: Soft, nontender, nondistended. No palpable organomegaly is noted. No rebound or guarding demonstrated. BACK: Shows spine grossly in the midline. Normal appearing thoracic kyphosis and lumbar lordotic curvature, and cervical lordotic curvature. Cervical paraspinous muscle shows symmetrical on inspection, on palpation shows some moderate tenderness diffusely bilaterally going diffusely without significant radiation. The patient shows some very firm rope-like musculature, however, in bilateral cervical paraspinous distribution as well as into the trapezius, rhomboid and superior thoracic distribution, less so in the middle thoracic distribution and in the lumbar distribution, very firm rope-like musculature, very tender with some mild radiation on the left into the posterior gluteus, but only into the gluteus. The patient shows good rotational motion of both the cervical spine as well as the lumbar spine without significant increase in pain. EXTREMITIES: The patient's extremities show upper extremity deep tendon reflexes 2+ in the biceps and triceps tendons. 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 Lower extremities show deep tendon reflexes 2+ in the patellar and 1+ tendo calcaneus tendons. Motor exam is strong with 5/5 dorsiflexion, extension, quadriceps, and hamstring flexion. Peripheral pulses are 2+ radial, 1+ posterior tibia. No peripheral edema is noted bilaterally. Options were discussed with the patient. The patient's old chart was reviewed as his current medication regimen updated. Current review of systems updated today as well and we will proceed with trigger point injections of the aforementioned musculature. Risks were again discussed including, but not limited to bleeding, infection, possibility of intravascular injection sequelae, spread of local anesthetic and numbness, pneumothorax, side effects of steroid medication, and poor results regarding pain control. The patient understands and wished to proceed. The patient will return to clinic in approximately 2 weeks for followup. She was counseled on return appointment, activity level and side effects to be aware of. DIAGNOSIS: Myofascial pain. PROCEDURE: Trigger point injections, bilateral cervical paraspinous musculature, bilateral trapezius musculature, bilateral rhomboid musculature, bilateral thoracic paraspinous musculature, and bilateral lumbar paraspinous musculature under sterile prep and drape using local anesthetic. MEDICATION INJECTED: The patient received a total of 18 mL of 0.25% bupivacaine after negative aspiration at each site. CONDITION AT DISCHARGE: Stable. The patient tolerated procedure well, had no complications. WAYNE MARTIN MD DR: Cyndy JOB#: [id number] / [id number]
== END ==
LOC: PNCL 07:40
PROVIDERS: ATTEND Anesthesiology
DX: M79.18 Myalgia, other site (principal); M50.10 Cervical disc disorder with radiculopathy, unspecified cervical region; M51.16 Intervertebral disc disorders with radiculopathy, lumbar region
CPT/HCPCS: 20553; J3490; J1030

== ENCOUNTER → 2019-03-03 | Outpatient (CLI) | payer OTHER ==
[~2019-03-03] MED LIST changes: +SIMV10TA15 PO; -SIMV10TA3 PO; -methylPREDNISolone ACETATE 40 MG/ML VIAL. ONE
--- NOTE | 2019-03-03 08:56 | PAIN ---
DATE OF SERVICE: 03/03/2019 PROGRESS NOTE FOR PAIN CLINIC DIAGNOSES: 1. Cervical radiculopathy with cervical degenerative disk disease. 2. Lumbar radiculopathy with lumbar degenerative disk disease. 3. Myofascial pain. HISTORY OF PRESENT ILLNESS: The patient is a 53-year-old male who returns for followup status post trigger point injections about 2 weeks ago. The patient reports he is doing very well with this with approximately 50% improvement overall in the base of the neck, shoulders, upper back and mid back. The patient is waiting for preauthorization for lumbar epidural steroid injections, last was in October of this year and he is having some discussion with his insurance provider regarding qualifications. The patient reports otherwise the myofascial pain is fairly significant and the trigger point injections do help for about 2 weeks. The patient reports pain in the base of the neck, shoulders, upper back, mid back, low back, rated 10 on a scale of 10 at its worst over the past week, 8 on average, 7 at its least and is a 7 today. The patient reports it is aching, sharp, dull, shooting at times, stabbing, radiating, constant with activity, worse with strenuous activity or more activity during the day and it is worse at night. The patient reports it does not awaken him from sleep, generally sleeps fairly well. No new motor or sensory deficits, no new bowel or bladder incontinence or other complaints. PHYSICAL EXAMINATION: VITAL SIGNS: The patient's blood pressure 129/88, pulse 64, respirations 18, temperature 97.9 degrees Fahrenheit, height is 6 feet, weight is 207 pounds. GENERAL: The patient is awake, alert, oriented, appropriate, very pleasant demeanor. HEENT: Head shows normocephalic, atraumatic. Extraocular movements are intact and symmetrical. Oral cavity, mucous membranes are moist and pink. Dentition is intact. NECK: Shows anterior throat supple without palpable lymphadenopathy noted. Swallow reflex symmetrical. CHEST: Shows normal on inspection. Breath sounds clear bilaterally. HEART: Shows S1, S2 clear. No murmurs auscultated. ABDOMEN: Soft, nontender. BACK: Shows spine grossly in the midline. Cervical paraspinous muscle shows symmetrical with palpation, some very firm rope-like musculature in the middle and lower distribution, worse on the left than the right in the musculature consistent with trigger point areas of muscle as on previous exam. This is true into the trapezius muscles bilaterally, again left greater than right, but very firm rope-like musculature, very tender to palpation. These are present in the upper thoracic distribution as well as into the middle and lower lumbar distribution with very firm rope-like musculature most tender on the left near the sacroiliac region on the left side, but in the myofascial tissue with very firm rope-like musculature consistent with trigger point areas of muscle again without specific radiation, but very tender with palpation bilaterally. EXTREMITIES: The patient's upper extremities show deep tendon reflexes 2+ in biceps, triceps tendons. 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 Peripheral pulses are 2+ radial. Lower extremities show deep tendon reflexes 2+/4 in the patellar, 1+ tendo-calcaneus tendons. Motor exam is strong with 5/5 dorsiflexion, extension, quadriceps and hamstring flexion. Peripheral pulses are 1+ posterior tibia. No peripheral edema is noted bilaterally in the upper or lower extremities. Options were discussed with the patient. The patient's old chart was reviewed as his current medication regimen updated. Current review of systems updated today as well. We will proceed with trigger point injections of the identified musculature. Risks were again discussed including, but not limited to bleeding, infection, possibility of intravascular injection sequelae, spread of local anesthetic and numbness, pneumothorax, side effects of steroid medication and poor results regarding pain control. The patient understands and wished to proceed. The patient will return to clinic in approximately 2 weeks for followup. He was counseled on return appointment, activity level and side effects to be aware of. DIAGNOSIS: Myofascial pain. PROCEDURE: Trigger point injections, bilateral cervical paraspinous musculature, bilateral trapezius musculature, bilateral thoracic paraspinous musculature and bilateral lumbar paraspinous musculature under sterile prep and drape using local anesthetic. MEDICATION INJECTED: A total of 12 mL of 0.25% bupivacaine and after negative aspiration at each injection site, no steroid administered today. CONDITION AT DISCHARGE: Stable. The patient tolerated the procedure well, had no complications. WAYNE MARTIN MD DR: NI/rebecca JOB#: [id number] / [id number]
== END ==
LOC: PNCL 07:34
PROVIDERS: ATTEND Anesthesiology
DX: M79.18 Myalgia, other site (principal); M51.16 Intervertebral disc disorders with radiculopathy, lumbar region; M50.10 Cervical disc disorder with radiculopathy, unspecified cervical region
CPT/HCPCS: 20553; J3490

== ENCOUNTER → 2019-03-22 | Outpatient (CLI) | payer OTHER ==
--- NOTE | 2019-03-22 09:46 | PAIN ---
DATE OF SERVICE: 03/22/2019 PROGRESS NOTE FOR PAIN CLINIC DIAGNOSES: 1. Cervical radiculopathy with cervical degenerative disk disease. 2. Lumbar radiculopathy with lumbar degenerative disk disease. 3. Myofascial pain. HISTORY OF PRESENT ILLNESS: The patient is a 53-year-old male who returns for followup status post trigger point injections as well as epidural steroid injections with good results. The patient reports he does well for about a week and a half after each of these trigger point injections with spasticity, increasing in the low back especially, but also in the mid back, upper back, neck and shoulders. The patient reports once medicine wears off, it is about a 10 on a scale of 10 at its worst over the past week, 8 on average, 7 on a scale of 10 at its least and is a 7 today. The patient reports it is stabbing, aching, shooting, radiating, constant, severe, also radiating to the lower extremities bilaterally as well as neck and shoulders. The patient reports no new motor or sensory deficits. Reports it awakens him from sleep about every 3-4 hours after a week and a half passes after his injections. The patient reports no new motor or sensory deficits, no new bowel or bladder incontinence or other complaints. PHYSICAL EXAMINATION: VITAL SIGNS: The patient's blood pressure 140/98, pulse 63, respirations 16, temperature is 98.2 degrees Fahrenheit, weight is 207 pounds. GENERAL: The patient is awake, alert, oriented, appropriate, very pleasant demeanor. HEENT: Head shows normocephalic, atraumatic. Extraocular movements are intact and symmetrical. Oral cavity shows mucous membranes moist and pink. Dentition is intact. NECK: Shows anterior throat supple without palpable lymphadenopathy noted. Swallow reflex symmetrical. CHEST: Shows normal on inspection. Breath sounds clear bilaterally. HEART: Shows S1, S2 clear. No murmurs auscultated. ABDOMEN: Soft, nontender, nondistended. No palpable organomegaly is noted. No rebound or guarding demonstrated. BACK: Shows spine grossly in the midline. Normal appearing thoracic kyphosis, some minor flattening of lumbar lordotic curvature, normal cervical lordotic curvature with palpation. There is significant tenderness and very firm rope-like musculature in the inferior aspect of the cervical paraspinous musculature as well as the bilateral trapezius, very firm rope-like musculature, but without radiation on palpation. The patient has good rotational motion of cervical spine both laterally as well as extension and flexion without significant difficulty. The patient's thoracic paraspinous muscle shows more on the left than the right, but present very firm rope-like musculature bilaterally consistent with trigger point areas of muscle in this region as well as in the inferior thoracic paraspinous musculature again more on the left than the right and bilateral and the lumbar paraspinous muscle shows very firm rope-like musculature bilaterally, tender with palpation, easily palpable with rope-like quality and very firm trigger point areas of musculature worse in the lower lumbar distribution more on the left than the right once again, but present bilaterally again without radiation. The patient has good rotational motion of lumbar spine both laterally as well as extension and flexion without significant difficulty. EXTREMITIES: Lower extremities show deep tendon reflexes at 2+ in the patellar, 1+ tendo-calcaneus tendons. Motor exam is strong with 5/5 dorsiflexion, extension, quadriceps and hamstring flexion. Peripheral pulses are 1+ posterior tibia. No peripheral edema is noted bilaterally. Options were discussed with the patient. The patient's old chart was reviewed as his current medication regimen updated. Current review of systems updated today as well. We will proceed with trigger point injections of the identified musculature. Risks were again discussed including, but not limited to bleeding, infection, possibility of intravascular injection sequelae, spread of local anesthetic and numbness, side effects of steroid medication, pneumothorax as well as poor results regarding pain control. The patient understands and wished to proceed. The patient will return to clinic in approximately 2 weeks for followup. He was counseled as to return appointment, activity level and side effects to be aware of. DIAGNOSIS: Myofascial pain. PROCEDURE: Trigger point injections, bilateral trapezius, bilateral cervical paraspinous musculature, bilateral thoracic paraspinous musculature, bilateral lumbar paraspinous musculature under sterile prep and drape using local anesthetic. MEDICATION INJECTED: A total of 12 mL of 0.25% bupivacaine after negative aspiration at each injection site. CONDITION AT DISCHARGE: Stable. The patient tolerated the procedure well, had no complications. WAYNE MARTIN MD DR: NI/rebecca JOB#: [id number] / [id number]
== END ==
LOC: PNCL 07:42
PROVIDERS: ATTEND Anesthesiology
DX: M79.18 Myalgia, other site (principal); M51.16 Intervertebral disc disorders with radiculopathy, lumbar region; M50.10 Cervical disc disorder with radiculopathy, unspecified cervical region
CPT/HCPCS: 20553; J3490

== ENCOUNTER → 2019-04-05 | Outpatient (CLI) | payer OTHER ==
--- NOTE | 2019-04-05 09:27 | PAIN ---
DATE OF SERVICE: 04/05/2019 PROGRESS NOTE FOR PAIN CLINIC DIAGNOSES: 1. Cervical radiculopathy with cervical degenerative disk disease. 2. Lumbar radiculopathy with lumbar degenerative disk disease. 3. Myofascial pain. HISTORY OF PRESENT ILLNESS: The patient is a 53-year-old male who returns for followup status post trigger point injections, has done very well with this with about a 75% improvement. The patient reports the pain continues to decrease, but did have some spasticity in the base of the neck and shoulders, more on the left, also in the mid upper back and in the low back on the left side greater than right, but present bilaterally. The patient reports it is 8 on a scale of 10 at its worst over the past week, 6 on average, 5 at its least and is a 5 today. The patient reports it is aching, dull, shooting, cramping, radiating at times, constant, also pain in the low back and left lower extremity in a radicular fashion as he has had previously, with myofascial pain doing much better after trigger point injections. He has been doing some stretching and strengthening as well as heat application in the base of neck and shoulders as well as the mid upper back and the low back, which he reports does help and stretching at home as well helps also. The patient reports no new motor or sensory deficits, no new bowel or bladder incontinence or other complaints. PHYSICAL EXAMINATION: VITAL SIGNS: The patient's blood pressure is 129/83, pulse 67, respirations 16, temperature is 98.2 degrees Fahrenheit, height is 6 feet 0 inches, weight is 209 pounds. GENERAL: The patient is awake, alert, oriented, appropriate, very pleasant demeanor. HEENT: Shows normocephalic, atraumatic. Extraocular movements are intact and symmetrical. Oral cavity, mucous membranes: Mucous membranes moist and pink. Dentition is intact. NECK: Shows anterior throat supple without palpable lymphadenopathy noted. Swallow reflex symmetrical. CHEST: Shows normal on inspection. Breath sounds clear to auscultation bilaterally. HEART: Shows S1, S2 clear. No murmurs auscultated. ABDOMEN: Soft, nontender, and nondistended. BACK: Shows spine grossly in the midline. Cervical paraspinous muscle shows symmetrical on inspection, on palpation shows some moderate tenderness diffusely bilaterally going diffusely with some very firm rope-like musculature in the inferior aspect of the cervical paraspinous musculature and into the superior medial trapezius, greater on the left than the right with very firm rope-like musculature consistent with trigger point areas of musculature. This is true into the rhomboid distribution of paraspinous musculature and thoracic distribution as well as the lumbar distribution, again worse on the left than the right with very firm rope-like, very tender musculature consistent with trigger point areas of muscle throughout. EXTREMITIES: The patient's upper extremities show deep tendon reflexes 2+ in biceps, triceps tendons. Lower extremities showed 2+ patellar and 1+ tendo calcaneus tendons. Motor exam is strong with 5/5 dorsiflexion, extension, quadriceps and hamstring flexion as well as mds nurse strength, biceps and triceps flexion. Peripheral pulses are 2+ radial and 1+ posterior tibial. No peripheral edema is noted bilaterally. Options were discussed with the patient. The patient's old chart was reviewed as his current medication regimen updated. Current review of systems updated today as well. We will proceed with trigger point injections of the identified musculature. Risks were discussed including but not limited to bleeding, infection, possibility of intravascular injection sequelae, spread of local anesthetic and numbness, pneumothorax as well as poor results regarding pain control. The patient understands and wished to proceed. The patient will return to clinic in approximately 2 weeks for followup. He was counseled on return appointment, activity level and side effects to be aware of. DIAGNOSIS: Myofascial pain. PROCEDURE: Trigger point injections, bilateral cervical paraspinous musculature, bilateral trapezius musculature, bilateral thoracic paraspinous musculature, bilateral lumbar paraspinous musculature under sterile prep and drape using local anesthetic. MEDICATION INJECTED: A total of 12 mL of 0.25% bupivacaine after negative aspiration at each injection site. CONDITION AT DISCHARGE: Stable. The patient tolerated procedure well, had no complications. WAYNE MARTIN MD DR: NI/rebecca JOB#: [id number] / [id number]
== END ==
LOC: PNCL 07:31
PROVIDERS: ATTEND Anesthesiology
DX: M79.18 Myalgia, other site (principal); M51.16 Intervertebral disc disorders with radiculopathy, lumbar region; M50.10 Cervical disc disorder with radiculopathy, unspecified cervical region
CPT/HCPCS: 20553; J3490

== ENCOUNTER → 2019-04-25 | Outpatient (CLI) | payer OTHER ==
[~2019-04-25] MED LIST changes: -BUPIVACAINE MPF 0.25% 10 ML VIAL. ONE
--- NOTE | 2019-04-25 13:02 | PAIN ---
DATE OF SERVICE: 04/25/2019 PROGRESS NOTE FOR PAIN CLINIC DIAGNOSES: 1. Cervical radiculopathy with cervical degenerative disk disease. 2. Lumbar radiculopathy with lumbar degenerative disk disease. 3. Myofascial pain. HISTORY OF PRESENT ILLNESS: The patient is a 53-year-old male who returns for followup status post trigger point injections on 04/05/2019. The patient reports he did fairly well with these for about a week, decrease in pain by about 75%, now has about 50% improvement in the base of the neck and shoulders, upper back, mid back, especially in the low back. The patient reports that the trigger points are not lasting as long as it had and his low back is his main complaint today with some radiation into the left lower extremity into the lateral anterior thigh as well as the posterior gluteus and lateral medial lower leg and calf. The patient reports it is worse with walking, standing, changing positions, worse with work duties, getting in and out of the car, sitting for prolonged periods. The patient reports the pain is aching, sharp, stabbing, radiating, becoming more constant, more severe in the low back, especially on the left side. The patient reports it is a 10 on a scale of 10 at its worst over the past week, 8 on average and a 7 at its least and is an 8 today. The patient reports no new motor or sensory deficits, no new bowel or bladder incontinence or other complaints. PHYSICAL EXAMINATION: VITAL SIGNS: The patient's blood pressure is 146/100, pulse 63, respirations 16, temperature 98.5 degrees Fahrenheit, height 6 feet, weight is 210 pounds. GENERAL: The patient is awake, alert, oriented, appropriate, very pleasant demeanor. HEENT: Shows normocephalic, atraumatic. Extraocular movements are intact and symmetrical. Oral cavity: Mucous membranes moist and pink. Dentition is intact. NECK: Shows anterior throat supple without palpable lymphadenopathy noted. Swallow reflex symmetrical. CHEST: Shows normal with inspection. Breath sounds clear to auscultation bilaterally. HEART: Shows S1, S2 clear. No murmurs auscultated. ABDOMEN: Soft, nontender, nondistended. BACK: Shows spine grossly in the midline, normal-appearing cervical lordotic curvature and thoracic kyphotic curvature, minor flattening of lumbar lordotic curvature. Cervical paraspinous muscle shows symmetrical with inspection, with very firm rope-like musculature in the inferior aspect of the cervical paraspinous muscles as well as into the superior medial trapezius bilaterally, firm and tender, significant with qualities of trigger point musculature. This is true into the rhomboid distribution of the upper and middle thoracic paraspinous musculature, but only more mildly. The patient's lower thoracic paraspinous musculature is firm, but without specific trigger points. The patient's lumbar paraspinous muscle shows very firm rope-like musculature throughout the upper, middle and lower distribution of paraspinous muscles bilaterally and again moderately to significantly tender, more on the left side than the right, but without specific radiation. The patient shows good rotational motion of the cervical spine as well as lumbar spine without significant pain reported with rotation or extension or flexion. EXTREMITIES: The patient's upper extremities show deep tendon reflexes 2+ in the biceps and triceps tendons. 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 Lower extremities show deep tendon reflexes 2+ in the patellar, 1+ tendo-calcaneus tendons. Motor exam is strong with 5/5 dorsiflexion, extension, quadriceps and hamstring flexion. Peripheral pulses are 1+ posterior tibia. No peripheral edema is noted bilaterally. Options were discussed with the patient. The patient's old chart was reviewed as his current medication regimen updated. Current review of systems updated today as well and we will preauthorize the patient for lumbar epidural steroid injection as he did well with his most recent injection that is 10/28/2018 with a 75-80% improvement and then after about a month coming down to about a 50% improvement overall. The patient will continue to do stretching and strength exercises at home. He will continue with walking and exercise as tolerated. We will preauthorize the patient for a lumbar epidural steroid injection at the L4-L5, left-sided radiculopathy for a translaminar approach at the L4-L5 level. He has done well with these in the past. We reviewed his insurance policy with him regarding his trigger point injections as well and he is only approved for 6 of these within a minimal interval of 2 months, not to exceed 12 months total. We discussed this with him today as well and again discussed the trigger points have been less effective over the last 1 or 2 sessions. We discussed the option of massage and heat therapy and stretching as well as physical therapy. He is not interested in physical therapy formally at this time. We will preauthorize the patient for lumbar epidural steroid injections. He has done well with these in the past. Once approval is obtained, we will have him return and plan on injection at that time. WAYNE MARTIN MD DR: NI/rebecca JOB#: [id number] / [id number]
== END | disposition home or self-care (01) ==
LOC: PNCL 07:36
PROVIDERS: ATTEND Anesthesiology
DX: M50.10 Cervical disc disorder with radiculopathy, unspecified cervical region (principal); M51.16 Intervertebral disc disorders with radiculopathy, lumbar region; M79.18 Myalgia, other site
CPT/HCPCS: G0463

== ENCOUNTER → 2019-05-05 | Outpatient (CLI) | payer OTHER ==
[~2019-05-05] MED LIST changes: -BUPR300T4 PO; +BUPR300T92 PO; -SUCR1ORA11 PO; +SUCR1ORA14 PO
--- NOTE | 2019-05-05 14:04 | KCIC ---
MRI of the lumbar spine without contrast 05/05/2019 CLINICAL HISTORY: Low back pain which radiates down the left leg. TECHNIQUE: Unenhanced T1-weighted and T2-weighted sagittal and axial and inversion recovery sagittal images of the lumbar spine were obtained. FINDINGS: Comparison study is dated 12/03/2017. The patient is again noted to have transitional vertebral anatomy. For the purposes of this dictation 5 lumbar vertebrae have been assumed. The last reasonly well-defined lumbar-appearing disc space will be referred to as L5-S1. L5 is partially sacralized. Degenerative signal changes are seen involving the L2-3, L3-4, L4-5 and L5-S1 discs. Degenerative signal changes are seen within the marrow surrounding these discs. The conus medullaris is normal morphology, position, and signal characteristics. At the L1-2 disc space there is a minimal generalized disc bulge. Degenerative changes are seen involving the facet joints bilaterally. These findings do not result in significant central spinal canal or neural foraminal stenosis. At the L2-3 disc space there is a mild generalized disc bulge. Superimposed on this disc bulge is a left lateral focal disc protrusion. This measures 4 mm in AP diameter. Degenerative changes are seen involving the facet joints bilaterally. There are small facet joint effusions bilaterally. There is mild ligamentum flavum hypertrophy bilaterally. These findings when combined do not result in significant central spinal canal or neural foraminal stenosis. At the L3-4 disc space there is a mild generalized disc bulge. Superimposed on this disc bulge is a right lateral focal disc protrusion. This measures 4 mm in AP diameter. Degenerative changes are seen involving the facet joints bilaterally. There are small facet joint effusions bilaterally. There is mild ligamentum flavum hypertrophy bilaterally. These findings when combined do not result in significant central spinal canal stenosis. Mild right neural foraminal stenosis is seen. The left neural foramen is patent. At the L4-5 disc space there is a mild generalized disc bulge. Superimposed on this disc bulge is a central/right paracentral focal disc protrusion. This measures 4 mm in AP diameter. Degenerative changes are seen involving the facet joints bilaterally. There is mild ligamentum flavum hypertrophy bilaterally. These findings when combined do not result in significant central spinal canal or neural foraminal stenosis. At the L5-S1 disc space there is a minimal generalized disc bulge. Degenerative changes are seen involving the facet joints bilaterally. These findings do not result in significant central spinal canal or neural foraminal stenosis. Since the previous examination there has been no significant interval change. IMPRESSION: The changes of degenerative disc disease are seen throughout the lumbar spine. These findings do not result in significant central spinal canal stenosis at any level. Mild right neural foraminal stenosis is seen at L3-4. Electronically signed by: Prateek Salinas MD (05/05/2019 2:01 PM) [email or web address]
--- NOTE | 2019-05-05 14:06 | KCIC ---
MRI of the cervical spine without contrast 05/05/2019 CLINICAL HISTORY: Chronic neck pain. Arm numbness. TECHNIQUE: Unenhanced T1-weighted, T2-weighted and inversion recovery sagittal and gradient echo axial images of the cervical spine were obtained. FINDINGS: Minimal lateral curvature of the cervical spine is seen convex to the right. There is straightening of the normal cervical lordosis. Degenerative signal changes are seen involving all of the disks of the cervical spine. Degenerative signal changes are seen within the marrow surrounding these discs. No area of abnormal signal intensity is seen involving the cervical spinal cord. On the axial images throughout the cervical spine, degenerative changes are seen consisting of minimal to mild generalized disc bulges and degenerative changes involving the uncovertebral and facet joints. These findings do not result in significant central spinal canal or neural foraminal stenosis at any level. IMPRESSION: Degenerative changes are seen throughout the cervical spine. These findings do not result in significant central spinal canal or neural foraminal stenosis. Electronically signed by: Prateek Salinas MD (05/05/2019 2:03 PM) [email or web address]
== END | disposition home or self-care (01) ==
LOC: KCIC MRI 11:43
PROVIDERS: ATTEND Physician Assistant Medical
DX: M51.37 Other intervertebral disc degeneration, lumbosacral region (principal); M47.812 Spondylosis without myelopathy or radiculopathy, cervical region; M48.061 Spinal stenosis, lumbar region without neurogenic claudication; M50.20 Other cervical disc displacement, unspecified cervical region; M99.81 Other biomechanical lesions of cervical region; M99.83 Other biomechanical lesions of lumbar region
CPT/HCPCS: 72141; 72148

== ENCOUNTER → 2019-07-08 | Outpatient (CLI) | payer OTHER ==
[~2019-07-08] MED LIST changes: +IOHEXOL 180 MG/ML 10 ML VIAL. ONE; +methylPREDNISolone ACETATE 40 MG/ML VIAL. ONE; +methylPREDNISolone ACETATE 80 MG/ML VIAL. ONE
--- NOTE | 2019-07-08 12:06 | PAIN ---
DATE OF SERVICE: 07/08/2019 PROGRESS NOTE FOR PAIN CLINIC DIAGNOSES: 1. Lumbar radiculopathy with lumbar degenerative disk disease. 2. Cervical radiculopathy with cervical degenerative disk disease. 3. Myofascial pain. HISTORY OF PRESENT ILLNESS: The patient is a 53-year-old male who returns for followup, status post lumbar epidural steroid injections, most recently in 10/2018, also, trigger point injections and reports that we had seen him on 04/25/2019 with significant increase in pain and radicular pain in the left lower extremity and an L4-L5 dermatomal distribution. The patient waited for preauthorization. He has obtained that now and would like to proceed with lumbar epidural steroid injection. He has done very well with these in the past. The patient reports the pain is increasing in the low back, left lower extremity, mostly in the posterior gluteus, posterior lateral thigh, anterior thigh and medial lower leg on the left side. The patient reports it is aching, sharp, shooting, stabbing, constant, radiating, becoming more severe with walking, standing, changing positions and a sharper pain in the back itself. The patient reports it is a 10 on a scale of 10 at its worst in the past week, 7 on average, 6 at its least and is a 7 today. The patient reports no new motor or sensory deficits, no new bowel or bladder incontinence or other complaints. PHYSICAL EXAMINATION: VITAL SIGNS: The patient's blood pressure 142/98, pulse 66, respirations 18, temperature 97.9 degrees Fahrenheit, weight is 217 pounds. GENERAL: The patient is awake, alert, oriented, appropriate, very pleasant demeanor. HEENT: Shows normocephalic, atraumatic. Extraocular movements are intact and symmetrical. Oral cavity: Mucous membranes are moist and pink. Dentition is intact. NECK: Shows anterior throat supple without palpable lymphadenopathy noted. Swallow reflex symmetrical. CHEST: Shows normal on inspection. Breath sounds clear to auscultation bilaterally. HEART: Shows S1, S2 clear. ABDOMEN: Soft, nontender, nondistended. BACK: Shows spine grossly in the midline. Normal-appearing thoracic kyphosis, some minor flattening of lumbar lordotic curvature. Lumbar paraspinous muscle shows symmetrical on inspection, on palpation shows some moderate tenderness diffusely bilaterally, but only diffusely without significant radiation. EXTREMITIES: The patient's lower extremities show deep tendon reflexes 2+ in the patellar, 1+ tendo-calcaneus tendons. Motor exam is strong with 5/5 dorsiflexion, extension, quadriceps, hamstring flexion and symmetrical. Peripheral pulses are 1+ posterior tibia. No peripheral edema is noted bilaterally. Options were discussed with the patient. The patient's old chart was reviewed as his current medication regimen updated. Current review of systems updated today as well. We will proceed with a lumbar epidural steroid injection, today is the first in this series with fluoroscopic guidance. Risks were again discussed including, but not limited to bleeding, infection, possibility of epidural hematoma, subsequent neurological compromise, dural puncture, headaches, spinal cord and/or nerve damage, side effects of steroid medication and poor results regarding pain control. The patient understands and wished to proceed. The patient will return to clinic in approximately 2 weeks for followup. He was counseled on return appointment, activity level and side effects to be aware of. DIAGNOSIS: Lumbar radiculopathy with lumbar degenerative disk disease. PROCEDURE: Lumbar epidural steroid injection, translaminar approach at L4-L5 level using C-arm fluoroscopic guidance under sterile prep and drape using local anesthetic. MEDICATION INJECTED: A total of 120 mg Depo-Medrol plus 10 mL of preservative-free normal saline and 2 mL of contrast. CONDITION AT DISCHARGE: Stable. The patient tolerated the procedure well, had no complications. WAYNE MARTIN MD DR: NI/rebecca JOB#: [id number] / [id number]
== END ==
LOC: PNCL 07:40
PROVIDERS: ATTEND Anesthesiology
DX: M51.16 Intervertebral disc disorders with radiculopathy, lumbar region (principal); M50.10 Cervical disc disorder with radiculopathy, unspecified cervical region; M79.18 Myalgia, other site
CPT/HCPCS: 62323; J1030; J1040; Q9965

== ENCOUNTER → 2019-07-12 | Outpatient (CLI) | payer OTHER ==
[~2019-07-12] MED LIST changes: -IOHEXOL 180 MG/ML 10 ML VIAL. ONE; -methylPREDNISolone ACETATE 40 MG/ML VIAL. ONE; -methylPREDNISolone ACETATE 80 MG/ML VIAL. ONE
--- NOTE | 2019-07-12 14:12 | KCIC ---
HAND BILAT 3V 07/12/2019 12:00 AM INDICATION: Bilateral hand pain COMPARISON: None available. TECHNIQUE: 3 views of the left and 3 views of the right hand are provided. FINDINGS/ IMPRESSION: There is no acute fracture or dislocation. Joint spaces are maintained. Bone mineralization is within normal limits. Regional soft tissues are within normal limits. There is no soft tissue gas or osseous erosion. No radiopaque foreign body. Electronically signed by: Anna Rosario MD (07/12/2019 2:09 PM) [id number]
== END ==
LOC: KCIC 12:36
PROVIDERS: ATTEND Physician Assistant Medical
DX: M79.642 Pain in left hand (principal); M79.641 Pain in right hand
CPT/HCPCS: 73130

== ENCOUNTER → 2019-11-22 | Outpatient (CLI) | payer OTHER ==
[~2019-11-22] MED LIST changes: +IOHEXOL 180 MG/ML 10 ML VIAL. ONE; +methylPREDNISolone ACETATE 40 MG/ML VIAL. ONE; +methylPREDNISolone ACETATE 80 MG/ML VIAL. ONE
--- NOTE | 2019-11-22 08:28 | PAIN ---
DATE OF SERVICE: 11/22/2019 PROGRESS NOTE FOR PAIN CLINIC DIAGNOSES: 1. Cervical radiculopathy with cervical degenerative disk disease. 2. Lumbar radiculopathy with lumbar degenerative disk disease. 3. Myofascial pain. HISTORY OF PRESENT ILLNESS: The patient is a 54-year-old male who returns for followup status post lumbar epidural steroid injection x 1 on 07/08/2019. The patient reports he did very well with this with about a 50% improvement overall in low back and left greater than right lower extremity pain. The patient reports still significant pain in low back and left leg, mostly in the posterior gluteus, posterolateral thigh, lateral anterior thigh, medial thigh and into the medial lower leg. The patient reports it is radiating, becoming more severe, tingling, stabbing, worse with walking, standing with aching and sharp in quality in the back and shooting into the left leg greater than the right. The patient reports it is a 10 on a scale of 10 at its worse over the past week, 6 on average and 4 at its least and is a 6 today. The patient reports no new motor or sensory deficits, no new bowel or bladder incontinence or other complaints. PHYSICAL EXAMINATION: VITAL SIGNS: The patient's blood pressure 115/68, pulse 61, respirations 16, temperature 98.2 degrees Fahrenheit, height is 6 feet, weight is 213 pounds. GENERAL: The patient is awake, alert, oriented, appropriate, very pleasant demeanor. HEENT: Shows normocephalic, atraumatic. Extraocular movements are intact and symmetrical. Oral cavity: Mucous membranes moist and pink. Dentition is intact. NECK: Shows anterior throat supple without palpable lymphadenopathy noted. Swallow reflex symmetrical. CHEST: Shows normal on inspection. Breath sounds are clear bilaterally. HEART: Shows S1, S2 clear. No murmurs auscultated. ABDOMEN: Soft, nontender, nondistended. BACK: Shows spine grossly in the midline. Normal appearing thoracic kyphosis and minor flattening of lumbar lordotic curvature. Lumbar paraspinous muscle shows symmetrical on inspection, with palpation shows some moderate tenderness diffusely bilaterally going diffusely without significant radiation. The patient has good rotational motion of lumbar spine, both laterally as well as extension and flexion without significant difficulty. EXTREMITIES: Lower extremities show deep tendon reflexes at 2+ patellar, 1+ tendo-calcaneus tendons. Motor exam is strong with 5/5 dorsiflexion, extension, quadriceps and hamstring flexion symmetrical. Peripheral pulses are 1+ posterior tibia. No peripheral edema is noted. Options were discussed with the patient. The patient's old chart was reviewed as his current medication regimen updated. Current review of systems updated today as well and we will proceed with a second in a series of lumbar epidural steroid injection today with fluoroscopic guidance. Risks were again discussed including, but not limited to bleeding, infection, possibility of epidural hematoma, subsequent neurological compromise, dural puncture, headaches, spinal cord and/or nerve damage, side effects of steroid medication and poor results regarding pain control. The patient understands and wished to proceed. The patient will return to clinic in approximately 2 weeks for followup. He was counseled on return appointment, activity level and side effects to be aware of. DIAGNOSIS: Lumbar radiculopathy with lumbar degenerative disk disease. PROCEDURE: Lumbar epidural steroid injection, translaminar approach at L4-L5 level using C-arm fluoroscopic guidance under sterile prep and drape using local anesthetic. MEDICATION INJECTED: A total of 120 mg Depo-Medrol plus 10 mL of preservative-free normal saline and 2 mL of contrast. CONDITION AT DISCHARGE: Stable. The patient tolerated the procedure well, had no complications. WAYNE MARTIN MD DR: NI/rebecca JOB#: [id number] / [id number]
== END | disposition home or self-care (01) ==
LOC: PNCL 07:33
PROVIDERS: ATTEND Anesthesiology
DX: M51.16 Intervertebral disc disorders with radiculopathy, lumbar region (principal); M50.10 Cervical disc disorder with radiculopathy, unspecified cervical region; M79.18 Myalgia, other site; Z82.49 Family history of ischemic heart disease and other diseases of the circulatory system; Z98.890 Other specified postprocedural states; Z79.899 Other long term (current) drug therapy; Z88.0 Allergy status to penicillin
CPT/HCPCS: 62323; J1030; J1040; Q9965

== ENCOUNTER → 2020-01-16 | Outpatient (CLI) | payer OTHER ==
[~2020-01-16] MED LIST changes: -ASPI-612 PO; +ASPI-886 PO
--- NOTE | 2020-01-16 08:53 | PDOC ---
Progress Note - Pain Clinic Date of Service: DOS: DATE: 01/16/20 TIME: 08:49 Diagnosis: Dx: Lumbar radiculopathy with lumbar degenerative disc disease Cervical radiculopathy with cervical degenerative disc disease Myofascial pain History or Present Illness: HPI: 54-year-old male returns follow-up status post lumbar epidural straight injections x2 and trigger point injections. Patient reports he did very well approximately 50% improvement overall initially about 75% improvement. Is now chief complaint is low back pain bilateral lower extremities more on the left than the right present in the posterior gluteus posterior lateral thigh lateral anterior thighs with tingling and burning more on the left than the right patient reports is worse with walking standing changing positions better with sitting or laying down generalized not awaken him from sleep but over the past few weeks it has begun to every 5-6 hours. Patient reports pain is a 9 on a scale of 10 is worse over the past week 6 on average 6 its least is a 6 today describes aching sharp dull across the back with some shooting pain that can be severe in the low back with extended standing or activity. Patient reports no new motor or sensory deficits no new bowel or bladder incontinence or other complaints. Physical Exam: VS: Blood pressure is 154/107 pulse 84 respiration 16 temperature is 98.5 F height is 6 foot weight is 223 pounds PE: PHYSICAL EXAMINATION: GENERAL: The patient is awake, alert, oriented, appropriate, very pleasant demeanor HEENT: Shows normocephalic, atraumatic. Extraocular movements are intact and symmetrical. Oral cavity: Mucous membranes moist and pink. NECK: Shows anterior throat supple without palpable lymphadenopathy noted. Swallow reflex symmetrical. CHEST: Shows normal on inspection. Breath sounds are clear bilaterally, no rales rhonchi or wheezes auscultated. HEART: Shows S1, S2 clear. No murmurs auscultated. ABDOMEN: Soft, nontender, nondistended. No palpable organomegaly is noted. No rebound or guarding demonstrated. BACK: Shows spine grossly in the midline. Normal-appearing cervical lordotic curvature. There is slightly increased thoracic kyphosis, some minor flattening of the lumbar lordotic curvature. Lumbar paraspinous muscles show symmetrical on inspection, on palpation shows some moderate tenderness diffusely throughout the upper, middle and lower distribution of the paraspinous muscles bilaterally, but without specific trigger points, without radiation of pain. The patient has good rotational motion of the lumbar spine, both laterally as well as extension and flexion without significant difficulty. No tenderness over the spinous processes, sacrum or sacroiliac regions. EXTREMITIES: Lower extremities show deep tendon reflexes 2+ in the patellar and tendo calcaneus tendons. Motor exam is 5 on a scale of 5 with right dorsiflexion, extension, quadriceps and hamstring flexion and 5/5 on the left. Peripheral pulses are 1+ posterior tibial. No peripheral edema is noted bilate rally. Lower extremities are warm and dry to touch, equal in color and appearance. SKIN: Shows warm and dry, good turgor. No edema. No sores, rashes or bruising throughout. Procedure: Procedure: Options were discussed with the patient. Patient chart was reviewed his current medication regimen updated current review of systems updated today as well. We will proceed with a third in a series lumbar epidural steroid injection today with fluoroscopic guidance. Risks were discussed including but not limited to: Bleeding, infection, possibility of epidural hematoma and subsequent neurological compromise, dural puncture, headaches, spinal cord and/or nerve damage, side effects of steroid medication, and poor results regarding pain control. Patient understands wished to proceed. Patient return to clinic in approximate 2 weeks for follow-up was counseled as to return appointment activity level and side effects to be aware of. Medication Injected: Med Injected: Procedure is lumbar epidural steroid injection under local anesthetic using sterile prep and drape at the L4-5 level using C-arm fluoroscopic guidance in both AP and lateral views medications injected is 120 mg Depo-Medrol + 10 mL preservative-free normal saline and 2 mL contrast- condition at discharge is stable patient tolerated procedure well had no complications. Condition at Discharge: Condition at Discharge: Condition at discharge is stable patient tolerated procedure well had no complications. WAYNE MARTIN MD Jan 16, 2020 08:53
== END | disposition home or self-care (01) ==
LOC: PNCL 08:02
PROVIDERS: ATTEND Anesthesiology
DX: M51.16 Intervertebral disc disorders with radiculopathy, lumbar region (principal); M50.10 Cervical disc disorder with radiculopathy, unspecified cervical region; M79.18 Myalgia, other site; I10 Essential (primary) hypertension; E11.9 Type 2 diabetes mellitus without complications; Z88.0 Allergy status to penicillin; Z82.49 Family history of ischemic heart disease and other diseases of the circulatory system; Z79.899 Other long term (current) drug therapy
CPT/HCPCS: 62323; J1030; J1040; Q9965

== ENCOUNTER → 2020-09-13 | Outpatient (CLI) | payer OTHER ==
[~2020-09-13] MED LIST changes: +AMLO-186 PO; -AMLO5TAB10 PO; +BARIUM SULFATE 40% (APPLE) 148 GM PWD. PO ONE; -IOHEXOL 180 MG/ML 10 ML VIAL. ONE; -methylPREDNISolone ACETATE 40 MG/ML VIAL. ONE; -methylPREDNISolone ACETATE 80 MG/ML VIAL. ONE
--- NOTE | 2020-09-13 11:05 | RAD ---
VIDEO FLUOROSCOPIC SWALLOWING STUDY History: Dysphagia, oral pharyngeal phase. Total fluoroscopic time: 0.8 minutes. Total fluoroscopic spot images: 1. Findings: A video fluoroscopic swallowing study was performed with the speech pathologist present. Sw allowing is normal and no laryngeal penetration or aspiration is seen. No vallecular/piriform sinus p ooling or residue is seen. Impression: Normal study. Full report to follow by speech pathology. Electronically signed by: Donnie Alvarado MD (09/13/2020 11:02 AM) [id number]
== END ==
LOC: RAD 09:34
DX: R13.10 Dysphagia, unspecified (principal)
CPT/HCPCS: 74230; 92526-GN; 92611-GN

== ENCOUNTER → 2020-11-15 | Outpatient (CLI) | payer OTHER ==
[~2020-11-15] MED LIST changes: -BARIUM SULFATE 40% (APPLE) 148 GM PWD. PO ONE; -DOCU-150 PO; +DOCU-158 PO
--- NOTE | 2020-11-15 16:19 | KCIC ---
EXAMINATION: XR BILATERAL HIP (WITH OR WITHOUT PELVIS) LEFT 2 VIEWS CLINICAL HISTORY: Chronic left hip pain TECHNIQUE: XR BILATERAL HIP (WITH OR WITHOUT PELVIS) LEFT 2 VIEWS Number of Images/Views: 3 COMPARISON: None FINDINGS: Joint spaces and alignment are relatively well-maintained and the left hip with tiny marginal osteoph ytes. Similar-appearing changes in the right hip, incompletely evaluated. Pubic symphysis maintained. Transitional lumbosacral vertebra with partial versus complete fusion of the left transverse process and sacrum. No acute fracture. Pelvic phleboliths. IMPRESSION: Minimal degenerative changes left hip. Electronically signed by: Harshil Harkins DO (11/15/2020 4:17 PM) [id number]
== END ==
LOC: KCIC 11:05
PROVIDERS: ATTEND Physician Assistant Medical
DX: M16.12 Unilateral primary osteoarthritis, left hip (principal); M25.752 Osteophyte, left hip
CPT/HCPCS: 73502

== ENCOUNTER → 2021-04-25 | Outpatient (CLI) | payer OTHER ==
[~2021-04-25] MED LIST changes: +CYCL10TA19 PO; -CYCL10TA2 PO; +DICY20TA PO; -DICY20TA3 PO; -LIPA1CAP12 PO; +LIPA1CAP31 PO; +REGADENOSON 0.4 MG/5 ML DISP.SYRIN. IV ONE; +TIZA-75 PO; -TIZA4TAB2 PO
--- NOTE | 2021-04-25 15:24 | CARD ---
MR#: [id number] Date of Study: 04/25/2021 Ordering Physician: ARUN DUPONT, Referring Physician: ARUN DUPONT Tech: Reshma Truong EZEKIEL APPROVED REPORT EXAM: Two-dimensional and M-mode echocardiogram with Doppler and color Doppler. Other Information Quality : Technically LimitedHR: 79bpm Rhythm : NSR INDICATION Dyspnea RISK FACTORS Hypertension 2D DIMENSIONS Left Atrium(2D)3.5 (1.6-4.0cm)IVSd1.3 (0.7-1.1cm) Aortic Root(2D)3.9 (2.0-3.7cm)LVDd5.1 (3.9-5.9cm) LVOT Diameter2.4 (1.8-2.4cm)PWd1.3 (0.7-1.1cm) LVDs3.1 (2.5-4.0cm)FS (%) 40.5 % SV88.9 ml Aortic Valve AoV Peak Gerald.129.9cm/sAoV VTI22.7cm AO Peak GR.6.8mmHgLVOT Peak Gerald.103.4cm/s AO Mean GR.3mmHgAVA (VMAX)3.49cm2 Mitral Valve MV E Wlrklpux33.4cm/sMV DECEL LEDI737qe MV A Btxmgrmn35.0cm/sE/A Ratio0.7 Pulmonary Valve PV Peak Uqvwaebk695.3cm/s LEFT VENTRICLE The left ventricle is normal size. There is borderline concentric left ventricular hypertrophy. The l eft ventricular systolic function is normal and the ejection fraction is within normal range. LV eje ction fraction is 55 to 60%. There is normal LV segmental wall motion. Transmitral Doppler flow luisana cristofer is Grade I-abnormal relaxation pattern. RIGHT VENTRICLE The right ventricle is normal size. There is normal right ventricular wall thickness. The right ventr icular systolic function is normal. ATRIA The left atrium size is normal. The right atrium size is normal. The interatrial septum is intact wit h no evidence for an atrial septal defect or patent foramen ovale as noted on 2-D or Doppler imaging. AORTIC VALVE The aortic valve is normal in structure and function. Doppler and Color Flow revealed no significant aortic regurgitation. There is no significant aortic valvular stenosis. MITRAL VALVE The mitral valve is normal in structure and function. There is no evidence of mitral valve prolapse. There is no mitral valve stenosis. Doppler and Color Flow revealed no mitral valve regurgitation note d. TRICUSPID VALVE The tricuspid valve is normal in structure and function. Doppler and Color Flow revealed no tricuspid valve regurgitation noted. There is no tricuspid valve stenosis. PULMONIC VALVE The pulmonary valve is normal in structure and function. Doppler and Color Flow revealed no pulmonic valvular regurgitation. GREAT VESSELS The aortic root is normal in size. The ascending aorta is normal in size. The IVC is normal in size a nd collapses >50% with inspiration. PERICARDIAL EFFUSION There is no evidence of significant pericardial effusion. Critical Notification Critical Value: No <Conclusion> The left ventricle is normal size. The left ventricular systolic function is normal and the ejection fraction is within normal range. LV ejection fraction is 55 to 60%. There is borderline concentric left ventricular hypertrophy. Doppler and Color Flow revealed no significant aortic regurgitation. There is no significant aortic valvular stenosis. Doppler and Color Flow revealed no mitral valve regurgitation noted. Doppler and Color Flow revealed no tricuspid valve regurgitation noted. Signed by : Live Ken MD Electronically Approved : 04/25/2021 15:24:07
--- NOTE | 2021-04-25 16:07 | RAD ---
MR#: [id number] Date of Study: 04/25/2021 Ordering Physician: ARUN DUPONT, Referring Physician: MONICA AMES Tech: RT Kaylie (R) (N) APPROVED REPORT Test Type: Pharmacological Stress Nurse/Tech: Booker Zarco RN Test Indications: BOJORQUEZ Cardiac History: HTN, PVD Medications: See Electronic Medical Record Medical History: See Electronic Medical Record Resting ECG: SR PAC Resting Heart Rate: 75 bpm Resting Blood Pressure: 117/71mmHg Pretest Chest Pain: None Nurse/Tech Notes Lungs CTA, S1S2 Consent: The procedure was explained to the patient in lay terms. Informed consent was witnessed. Anders eout was entered into [employer]. History and Stress Test performed by DEVONTE Perez, ARRT (R) (N) Pharm. Details Pharmacologic stress testing was performed using 0.4mg per 5ml of regadenoson given intravenously ove r 7-10 seconds. Stress Symptoms No chest pain or symptoms. POST EXERCISE Reason for Termination: Infusion complete Max HR: 94 bpm Max Blood Pressure: 129/82mmHg Blood Pressure response to exercise: Normal blood pressure response during stress. Heart Rate response to exercise: normal response Chest Pain: No. Arrhythmia: No. ST Change: No. INTERPRETATION Stress EKG Conclusion: The resting EKG shows a sinus rhythm with nonspecific ST-T wave changes. The stress EKG shows no significant changes from baseline. No EKG evidence of stress-induced ischemia. Imaging Protocol IMAGE PROTOCOL: Rest Tc-99m/stress Tc-99m 1 day Rest: Stress: Viability: Radiopharm.Tc99m ClnrmuzekPw98d Sestamibi Xmrt99vIq 31.5mCi Duration 15min. 15min. Img Date 04/25/2021 04/25/2021 Inj-Img [id number]. 60min. Rest Admin Site:IV - Right AntecubitalAdministrator:JACKY Haywood Stress Admin Site: IV - Right AntecubitalAdministrator: RT Kaylie (R)(N) STRESS DATA End Diast. Vol.109.0mlAv. Heart Rate79.0bpm End Syst. Vol.33.0mlCO Index BSA0.0L/min Myocardial Osfu303.0gEject. Hobvagym64.0% Stress Rates Pk. Fill Rate3.15EDV/secLVtime Pk. Fill 232.36msec Pk. Empty Rate5.01ESV/secLVtime Pk. Msnpb392.95msec 1/3 Pk. Fill1.32EDV/sec Stress Scores Regional WT1.00Summed WT9.00 Regional WM0.00Summed WM0.00 LV Perfusion The stress scans showed no significant defects. The rest scans showed no significant defects. Nuclear imaging shows no reversible ischemia or infarct. Wall Motion Left ventricular systolic function is normal with an ejection fraction of 70%. LV Perf. Quant 17 Seg. SSS0.00 17 Seg. SRS3.00 17 Seg. SDS0.00 Stress Defect Extent (% LAD)0.00Rest Defect Extent (% LAD)0.00Rev. Defect Extent (% LAD)0.00 Stress Defect Extent (% LCX) 5.00Rest Defect Extent (% LCX)22.50Rev. Defect Extent (% LCX)0.00 Stress Defect Extent (% RCA)0.00Rest Defect Extent (% RCA)0.00Rev. Defect Extent (% RCA)0.00 Stress Defect Extent (% ARLIN)0.90Rest Defect Extent (% ARLIN)5.00Rev. Defect Extent (% ARLIN)0.00 Conclusion 1. No EKG evidence of stress-induced ischemia. 2. Nuclear imaging shows no reversible ischemia or infarct. 3. Intact LV systolic function with an ejection fraction of 70%. 4. Low risk Lexiscan nuclear stress test. Signed by : Live Ken MD Electronically Approved : 04/25/2021 16:07:07
== END ==
LOC: NM 09:16
PROVIDERS: ATTEND Internal Medicine Cardiovascular Disease
DX: R06.09 Other forms of dyspnea (principal)
CPT/HCPCS: 78452; 93017; 93306; A9500; J2785

== ENCOUNTER → 2021-06-12 | Outpatient (CLI) | payer OTHER ==
[~2021-06-12] MED LIST changes: +BUPIVACAINE MPF 0.25% 10 ML VIAL. ONE; +BUPIVACAINE MPF 0.25% 30 ML VIAL. ONE; +IOHEXOL 180 MG/ML 10 ML VIAL. ONE; -REGADENOSON 0.4 MG/5 ML DISP.SYRIN. IV ONE; +methylPREDNISolone ACETATE 80 MG/ML VIAL. ONE
--- NOTE | 2021-06-12 09:42 | PDOC ---
Progress Note - Pain Clinic Date of Service: DOS: DATE: 06/12/21 TIME: 09:36 Diagnosis: Dx: Cervical radiculopathy with cervical degenerative disc disease Lumbar radiculopathy with lumbar degenerative disease Myofascial pain Bilateral hip joint pain with osteoarthritis bilateral hips History or Present Illness: HPI: 55-year-old male returns last seen January 2020 patient had lumbar epidural steroid injection with very good results about 75% to 100% improvement for about 5 months patient reports pain gradually began to return over the past year in the low back and into the primarily right lower extremity and is still significant radiating into the low back and the lower extremity on the right side and L4-5 dermatomal distribution. Patient reports his chief complaint today however is left hip joint pain patient had some recent x-rays showing a mild to moderate degenerative change in the left hip joint. Patient reports the pain is a 10 on scale 10 is worst 8 on average 8 its least is an 8 today with walking standing specially putting on his weight on his left side such as stepping up a stair or curb putting all of his weight on the left hip patient r eports is radiating into the groin describes aching sharp stabbing severe can be unbearable at times patient reports still significant pain across the low back but this is secondary compared to the left hip joint pain he is having currently. Patient did have a appointment with interventional radiology but preferred to be seen with a clinic he is familiar with and presents today. Patient reports no loss of motor function with significant fatigability of both lower extremities especially in the left groin with walking and standing with some radiation to the anterior thigh as well. Patient has been doing physical therapy exercises on his own and walking daily as he can and has been working or is mostly on his feet during his working day as well. Patient reports it wakes him from sleep at least once or twice a night no bowel or bladder incontinence. Patient is taking [id number] Tylenol as well as ibuprofen decreases the pain but only minimally. Physical Exam: VS: Blood pressure is 121/78 pulse 81 respirations 18 temperature 98.1 F height is 6 foot weight is 256 pounds. PE: PHYSICAL EXAMINATION: GENERAL: The patient is awake, alert, oriented, appropriate, very pleasant in demeanor HEENT: Shows normocephalic, atraumatic. Extraocular movements are intact and symmetrical. Oral cavity: Mucous membranes moist and pink. Dentition is intact. NECK: Shows anterior throat supple without palpable lymphadenopathy noted. Swallow reflex symmetrical. CHEST: Shows normal on inspection. Breath sounds are clear bilaterally, no rales or rhonchi auscultated. HEART: Shows S1, S2 clear. No murmurs auscultated. ABDOMEN: Soft, nontender, nondistended. No palpable organomegaly is noted. BACK: Shows spine grossly in the midline. Normal-appearing cervical lordotic curvature. There is slightly increased thoracic kyphosis, some flattening of th e lumbar lordotic curvature. Lumbar paraspinous muscles show symmetrical on inspection, on palpation shows some moderate tenderness diffusely throughout the upper, middle and lower distribution of the paraspinous muscles without specific trigger points, without radiation of pain. The patient has good rotational motion of the lumbar spine, both laterally as well as extension and flexion without significant difficulty. No tenderness over the spinous processes, sacrum or sacroiliac regions. EXTREMITIES: Lower extremities show deep tendon reflexes 2+ in the patellar and tendo calcaneus tendons. Motor exam is 5 on a scale of 5 with right dorsiflexion, extension, quadriceps and hamstring flexion and 5/5 on the left. Peripheral pulses are 1+ posterior tibial. No peripheral edema is noted bilaterally. Lower extremities are warm and dry to touch, equal in color and appearance. Patient has positive Carlos's maneuver on the left with external rotation and posterior displacement of the left hip, right side is negative. Straight leg raise noted to be positive on the right at approximate 45 degrees decreased with knee flexion and is negative on the left. SKIN: Shows warm and dry, good turgor. No edema. No sores, rashes or bruising throughout. Procedure: Procedure: Options were discussed with patient. Patient's old chart was viewed as his current medication regimen updated current review of systems updated today as well. We will proceed with a left intra-articular hip joint injection today with fluoroscopic guidance. Risk discussed including but not limited to bleeding infection possibility of intravascular injection sequelae spread of local anesthetic numbness side effects steroid medication exposure to fluoroscopy and poor results regarding pain control. Patient understands wished to proceed. Patient return to the clinic in approximately 2 weeks for follow- up. Patient has clinical radiculopathy in L4-5 dermatomal distribution in the right lower extremity, and we will have preauthorization for lumbar epidural steroid injection with fluoroscopic guidance at the L4-5 level upon return. In the meantime, patient continue with stretching strength exercise, walking daily as tolerated, as well as oral analgesics as currently. Medication Injected: Med Injected: Under sterile prep and drape patient in supine position patient's left hip was visualized using C-arm fluoroscopic guidance. Using 1% lidocaine area lateral to the hip joint was anesthetized and using direct fluoroscopic vision 22-gauge 5 inch Quincke needle with stylette was then advanced under direct fluoroscopic guidance into the left intra-articular hip joint. 3 cc of contrast was used to show good spread within the hip joint itself and without washout or uptake. At this time, 3 cc 0.25% bupivacaine and 80 mg Depo-Medrol was then injected into the hip joint. Needle was withdrawn and sterile bandage was applied. Patient tolerated procedure well and had no complications. Condition at Discharge: Condition at Discharge: Condition at discharge stable, paced tolerated the procedure well and had no complications. WAYNE MARTIN MD Jun 12, 2021 09:42
--- NOTE | 2021-06-12 09:43 | PDOC4 ---
Procedure Note: ICD 10 Code: ICD 10 Code: M2 5.552 M16.12 Procedure Note: Patient was consented for left intra-articular hip joint injection with fluoroscopic guidance. Risks are discussed including but not limited to bleeding infection possibility of intravascular injection sequelae spread of local anesthetic and numbness side effects steroid medication exposure fluoroscopy and poor results regarding pain control. Patient understands and w ishes to proceed. Under sterile prep and drape patient in supine position patient's left hip was visualized using C-arm fluoroscopic guidance. Using 1% lidocaine area lateral to the hip joint was anesthetized and using direct fluoroscopic vision 22-gauge 5 inch Quincke needle with stylette was then advanced under direct fluoroscopic guidance into the left intra-articular hip joint. 3 cc of contrast was used to show good spread within the hip joint itself and without washout or uptake. At this time, 3 cc 0.25% bupivacaine and 80 mg Depo-Medrol was then injected into the hip joint. Needle was withdrawn and sterile bandage was applied. Patient tolerated procedure well and had no complications. WAYNE MARTIN MD Jun 12, 2021 09:43
== END | disposition home or self-care (01) ==
LOC: PNCL 08:24
PROVIDERS: ATTEND Anesthesiology
DX: M16.0 Bilateral primary osteoarthritis of hip (principal); M50.10 Cervical disc disorder with radiculopathy, unspecified cervical region; M51.16 Intervertebral disc disorders with radiculopathy, lumbar region; M79.18 Myalgia, other site; I10 Essential (primary) hypertension; E78.00 Pure hypercholesterolemia, unspecified; G47.30 Sleep apnea, unspecified; K21.9 Gastro-esophageal reflux disease without esophagitis; M19.90 Unspecified osteoarthritis, unspecified site; Z90.49 Acquired absence of other specified parts of digestive tract; Z98.890 Other specified postprocedural states; Z79.899 Other long term (current) drug therapy; Z72.89 Other problems related to lifestyle; Z88.0 Allergy status to penicillin; Z82.49 Family history of ischemic heart disease and other diseases of the circulatory system
CPT/HCPCS: 20610; 77002; J1040; J3490; Q9965

== ENCOUNTER → 2021-06-28 | Outpatient (CLI) | payer OTHER ==
[~2021-06-28] MED LIST changes: -BUPIVACAINE MPF 0.25% 10 ML VIAL. ONE; -BUPIVACAINE MPF 0.25% 30 ML VIAL. ONE; +DEXAMETHASONE PRES.FREE 10 MG/ML VIAL. ONE; -methylPREDNISolone ACETATE 80 MG/ML VIAL. ONE
--- NOTE | 2021-06-28 08:27 | PDOC4 ---
Procedure Note: ICD 10 Code: ICD 10 Code: M54.16 M51.36 Procedure Note: Patient is consented for lumbar epidural steroid injection with fluoroscopic guidance. Risks were discussed including but not limited to: Bleeding, infection, possibility of epidural hematoma and subsequent neurological compromise, dural puncture, headaches, spinal cord and/or nerve damage, side effects of steroid medication, and poor results regarding pain control. Patient understands and wished to proceed. Procedure is lumbar epidural steroid injection under local anesthetic using sterile prep and drape at the L4-5 level using C-arm fluoroscopic guidance in both AP and lateral views medications injected is 20 mg dexamethasone +10mL preservative-free normal saline and 2 mL contrast- condition at discharge is stable patient tolerated procedure well had no complications. WAYNE MARTIN MD Jun 28, 2021 08:27
--- NOTE | 2021-06-28 08:27 | PDOC ---
Progress Note - Pain Clinic Date of Service: DOS: DATE: 06/28/21 TIME: 08:23 Diagnosis: Dx: Lumbar radiculopathy with lumbar degenerative disease Cervical radiculopathy with cervical degenerative disc disease Myofascial pain Bilateral hip joint pain with osteoarthritis History or Present Illness: HPI: 55-year-old male returns for follow-up status post left hip joint injection with 100% improvement since left hip patient reports he is still helping he is very pleased with his progress reports he is walking with much greater ease and comfort his main complaint today however is that "my back is killing me now" patient reports pain across the low back and radiating to the right lower extremity posterior gluteus lateral thigh anterior thigh medial thigh patient reports a 9 on scale 10 is worse over the past week 6 on average 3 to [place] is a 6 today patient scribes a stabbing and shooting in the leg sharp and radiating on the right side can be constant and severe with activity patient reports is better with sitting or lying down but does awaken him sleep about once every 2-3 hours at night patient reports no bowel or bladder incontinence but significant fatigability of the right lower extremity but no overt motor loss. Patient reports his hip is doing much better on the left but now the low back and the right leg is significantly painful. Physical Exam: VS: Blood pressure is 131/93 pulse 81 respirations 18 temperature 98.3 F height is 6 foot weight is 258 pounds. PE: PHYSICAL EXAMINATION: GENERAL: The patient is awake, alert, oriented, appropriate, very pleasant in demeanor HEENT: Shows normocephalic, atraumatic. Extraocular movements are intact and symmetrical. Oral cavity: Mucous membranes moist and pink. Dentition is intact. NECK: Shows anterior throat supple without palpable lymphadenopathy noted. Swallow reflex symmetrical. CHEST: Shows normal on inspection. Breath sounds are clear bilaterally, distant but no rales rhonchi or wheezes auscultated. HEART: Shows S1, S2 clear. No murmurs auscultated. ABDOMEN: Soft, nontender, nondistended. No palpable organomegaly is noted. BACK: Shows spine grossly in the midline. Normal-appearing cervical lordotic curvature. There is slightly increased thoracic kyphosis, some mild flattening of the lumbar lordotic curvature. Lumbar paraspinous muscles show symmetrical on inspection, on palpation shows some moderate tenderness diffusely throughout the upper, middle and lower distribution of the paraspinous muscles without specific trigger points, without radiation of pain. The patient has good rotational motion of the lumbar spine, both laterally as well as extension and flexion without significant difficulty. No tenderness over the spinous processes, sacrum or sacroiliac regions. EXTREMITIES: Lower extremities show deep tendon reflexes 2+ in the patellar and tendo calcaneus tendons. Motor exam is 5 on a scale of 5 with right dorsiflexion, extension, quadriceps and hamstring flexion and 5/5 on the left. Peripheral pulses are 1+ posterior tibial. No peripheral edema is noted bilaterally. Lower extremities are warm and dry to touch, equal in color and appearance. SKIN: Shows warm and dry, good turgor. No edema. No sores, rashes or bruising throughout. Procedure: Procedure: Options were discussed with patient. Patient's old chart was reviewed his current medication regimen updated current review of systems updated today as well. We will proceed with a lumbar epidural steroid injection today with fluoroscopic guidance. Risks were discussed including but not limited to: Bleeding, infection, possibility of epidural hematoma and subsequent neurological compromise, dural puncture, headaches, spinal cord and/or nerve damage, side effects of steroid medication, and poor results regarding pain control. Patient understands and wished to proceed. Patient will return to the clinic in approximately 2 weeks for follow-up, was counseled as to return appointment, active level, and side effects to be aware of. Medication Injected: Med Injected: Procedure is lumbar epidural steroid injection under local anesthetic using sterile prep and drape at the L4-5 level using C-arm fluoroscopic guidance in both AP and lateral views medications injected is 20 mg dexamethasone +10mL preservative-free normal saline and 2 mL contrast- condition at discharge is stable patient tolerated procedure well had no complications. Condition at Discharge: Condition at Discharge: Condition at discharge stable, patient tolerated the procedure well and had no complications. WAYNE MARTIN MD Jun 28, 2021 08:27
== END | disposition home or self-care (01) ==
LOC: PNCL 07:55
PROVIDERS: ATTEND Anesthesiology
DX: M51.16 Intervertebral disc disorders with radiculopathy, lumbar region (principal); M50.10 Cervical disc disorder with radiculopathy, unspecified cervical region; M79.18 Myalgia, other site; M16.0 Bilateral primary osteoarthritis of hip; I10 Essential (primary) hypertension; E78.00 Pure hypercholesterolemia, unspecified; K21.9 Gastro-esophageal reflux disease without esophagitis; M19.90 Unspecified osteoarthritis, unspecified site; Z90.49 Acquired absence of other specified parts of digestive tract; Z98.890 Other specified postprocedural states; Z79.899 Other long term (current) drug therapy; Z88.0 Allergy status to penicillin; Z72.89 Other problems related to lifestyle; Z82.49 Family history of ischemic heart disease and other diseases of the circulatory system
CPT/HCPCS: 62323; J1100; Q9965

== ENCOUNTER → 2021-08-28 | Outpatient (CLI) | payer OTHER ==
[~2021-08-28] MED LIST changes: +BUPIVACAINE MPF 0.25% 10 ML VIAL. ONE
--- NOTE | 2021-08-28 12:35 | PDOC ---
Progress Note - Pain Clinic Date of Service: DOS: DATE: 08/28/21 TIME: 12:31 Diagnosis: Dx: Cervical radiculopathy with cervical degenerative disease Lumbar radiculopathy lumbar degenerative disease Myofascial pain Bilateral hip joint pain with osteoarthritis History or Present Illness: HPI: 55-year-old male returns for follow-up status post lumbar epidural steroid injection x1. Patient reports he did very well about a 75% improvement in the low back and right lower extremity pain. Patient reports is increase his activity with greater ease and comfort standing for longer periods of time walking for greater distances and sleeping better at night his chief complaint today however is left hip pain which he is reporting much worse with weightbearing standing on his left leg climbing stairs or climbing up steps putting all his weight on his left lower extremity. Patient reports is an 8 on scale 10 is worse over the past week 5 on average 3 at its least and is a 5 today patient reports much better with sitting or laying down however his right leg is waking him up from sleep at night the left leg generally does not. Patient reports no bowel or bladder incontinence no loss of motor function with significant fatigability of the left leg pain at its most. Patient reports pain at the groin on the left side radiating as well with weightbearing only. Physical Exam: VS: Blood pressure is 116/86 pulse 81 respirations are 16 temperature 98.3 F height is 6 foot weight is 255 pounds. PE: PHYSICAL EXAMINATION: GENERAL: The patient is awake, alert, oriented, appropriate, very pleasant in demeanor HEENT: Shows normocephalic, atraumatic. Extraocular movements are intact and symmetrical. Oral cavity: Mucous membranes moist and pink. Dentition is intact. NECK: Shows anterior throat supple without palpable lymphadenopathy noted. Swallow reflex symmetrical. CHEST: Shows normal on inspection. Breath sounds are clear bilaterally, no rales or rhonchi auscultated. HEART: Shows S1, S2 clear. No murmurs auscultated. ABDOMEN: Soft, nontender, nondistended. No palpable organomegaly is noted. BACK: Shows spine grossly in the midline. Normal-appearing cervical lordotic curvature. There is slightly increased thoracic kyphosis, some flattening of the lumbar lordotic curvature. Lumbar paraspinous muscles show symmetrical on inspection, on palpation shows some moderate tenderness diffusely throughout the upper, middle and lower distribution of the paraspinous muscles, but without specific trigger points, without radiation of pain. The patient has good rotational motion of the lumbar spine, both laterally as well as extension and flexion without significant difficulty. EXTREMITIES: Lower extremities show deep tendon reflexes to the in the patellar and tendo calcaneus tendons. Motor exam is 4 on a scale of 5 with right dorsiflexion, extension, quadriceps and hamstring flexion and 5/5 on the left. Peripheral pulses are 1+ posterior tibial. No peripheral edema is noted bilaterally. Lower extremities are warm and dry to touch, equal in color and appearance. Patient has positive Carlos's maneuver on the left only with late ral rotation and posterior extension of the left hip, right side is negative. SKIN: Shows warm and dry, good turgor. No edema. No sores, rashes or bruising throughout. Procedure: Procedure: Options were discussed with patient. Patient's old chart was viewed as his current medication regimen updated current review of systems updated today as well. We will proceed with a left intra-articular hip joint injection today with fluoroscopic guidance. Risks were discussed including not limited to bleeding infection possibility of intravascular injection sequelae spread local anesthetic numbness side effects steroid medication portals regarding pain control. Patient understands wished to proceed. Patient return to clinic in approximate 2 weeks for follow-up, was counseled as to return appointment, activity level, and side effect to be aware of. Patient with significant radicular pain in the right lower extremity following an L4-5 dermatomal distribution we will preauthorize patient for a lumbar epidural steroid injection with clinical radiculopathy on the right at L4-5 dermatomal distribution. In the meantime, patient will continue with stretching strength exercises, oral analgesics as currently, as well as exercise and daily walking as tolerated. Medication Injected: Med Injected: Under sterile prep and drape patient in supine position patient's left hip was visualized using C-arm fluoroscopic guidance. Using 1% lidocaine area lateral to the hip joint was anesthetized and using direct fluoroscopic vision 22-gauge 5 inch Quincke needle with stylette was then advanced under direct fluoroscopic guidance into the left intra-articular hip joint. 3 cc of contrast was used to show good spread within the hip joint itself and without washout or uptake. At this time, 3 cc 0.25% bupivacaine and 20 mg dexamethasone was then injected into the hip joint. Needle was withdrawn and sterile bandage was applied. Patient tolerated procedure well and had no complications. Condition at Discharge: Condition at Discharge: Condition at discharge is stable, paced tolerated procedure well and had no complications. WAYNE MARTIN MD Aug 28, 2021 12:35
--- NOTE | 2021-08-28 12:36 | PDOC4 ---
Procedure Note: ICD 10 Code: ICD 10 Code: M2 5.552 M16.12 Procedure Note: Patient was consented for left intra-articular hip joint injection with fluoroscopic guidance. Risks discussed including not limited to bleeding infection possibility of intravascular injection sequelae spread local anesthetic numbness side effects steroid medication exposure fluoroscopy and portals regarding pain control. Patient understands wished to proceed. Under sterile prep and drape patient in supine position patient's left hip was visualized using C-arm fluoroscopic guidance. Using 1% lidocaine area lateral to the hip joint was anesthetized and using direct fluoroscopic vision 22-gauge 5 inch Quincke needle with stylette was then advanced under direct fluoroscopic guidance into the left intra-articular hip joint. 3 cc of contrast was used to show good spread within the hip joint itself and without washout or uptake. At this time, 3 cc 0.25% bupivacaine and 20 mg dexamethasone was then injected into the hip joint. Needle was withdrawn and sterile bandage was applied. Patient tolerated procedure well and had no complications. WAYNE MARTIN MD Aug 28, 2021 12:35
== END | disposition home or self-care (01) ==
LOC: PNCL 10:49
PROVIDERS: ATTEND Anesthesiology
DX: M16.12 Unilateral primary osteoarthritis, left hip (principal); M50.10 Cervical disc disorder with radiculopathy, unspecified cervical region; M51.16 Intervertebral disc disorders with radiculopathy, lumbar region; M79.18 Myalgia, other site; M17.0 Bilateral primary osteoarthritis of knee; I10 Essential (primary) hypertension; E78.00 Pure hypercholesterolemia, unspecified; K21.9 Gastro-esophageal reflux disease without esophagitis; Z90.49 Acquired absence of other specified parts of digestive tract; Z98.890 Other specified postprocedural states; Z79.899 Other long term (current) drug therapy; Z72.89 Other problems related to lifestyle; Z88.0 Allergy status to penicillin
CPT/HCPCS: 20610; 77002; J1100; J3490; Q9965